=== PATIENT | female | born 1965 | race Caucasian/White ===

== ENCOUNTER → 2020-05-17 13:52 | Outpatient (BNVA) | payer OTHER, SELFPAY | PROVIDERS: PCP Internal Medicine; Referring Provider Internal Medicine; Visit Provider Hospitalist | DX: Z76.89 Persons encountering health services in other specified circumstances (principal) ==

== ENCOUNTER 2020-08-22 09:09 | Outpatient (REF) | payer OTHER, SELFPAY ==
[2020-08-22 09:42] LABS: MANUAL DIFF FLAG NO
[2020-08-22 09:47] LABS: Basophils Absolute Auto 0.1 X10*3/uL (0.0-0.2); Eosinophils Absolute Auto 0.2 X10*3/uL (0.0-0.4); Eosinophils Percent Auto 3.2 % (0-4); Hemoglobin 12.8 g/dl (12.0-16.0); Imm Gran Abs Auto 0.03 X10*3/uL (0.00-0.03); Imm Gran Pct Auto 0.5 % (0.0-0.4); Lymphocytes Absolute Auto 2.2 X10*3/uL (1.2-4.9); Lymphocytes Percent Auto 35.7 % (20-40); Mean Corpuscular HGB Conc 31.2 g/dl (31.0-35.0); Mean Corpuscular Hemoglobin 29.3 pg (27.0-33.0); Mean Corpuscular Volume 93.8 fL (80-98); Mean Platelet Volume 11.5 fL (9.4-12.3); Monocytes Absolute Auto 0.4 X10*3/uL (0.1-1.2); Monocytes Percent Auto 6.3 % (2-11); Neutrophils Absolute Auto 3.3 X10*3/uL (2.0-8.3); Neutrophils Percent Auto 53.3 % (45-73); Platelet Count 272 X10*3/uL (160-400); Red Blood Count 4.37 X10*6/uL (4.20-5.50); Red Cell Distribution Width 13.2 % (11.0-16.0); White Blood Count 6.2 X10*3/uL (4.8-10.8)
[2020-08-22 10:08] LABS: Alanine Aminotransferase 16 U/L (0-31); Albumin Level 4.1 g/dL (3.5-5.0); Alkaline Phosphatase 103 U/L (39-117); Anion Gap 10 (12-20); Aspartate Amino Transferase 21 U/L (5-31); Bilirubin Total 0.4 mg/dL (0.0-1.0); Blood Urea Nitrogen 10 mg/dL (9-16); Calcium 9.5 mg/dL (8.4-10.2); Carbon Dioxide 29 mmol/L (22-29); Chloride 107 mmol/L (96-108); Cholesterol 229 mg/dL; Estimated Glomerular Filt Rate > 60; Glucose Fasting 103 mg/dL (60-99); HDL Cholesterol 52 mg/dL; LDL Cholesterol Calculated 156 mg/dl; Potassium 4.4 mmol/L (3.3-5.1); Sodium 142 mmol/L (135-145); Total Protein 6.5 g/dL (6.5-8.0); Triglycerides 107 mg/dL
== END 2020-08-22 09:10 | disposition home or self-care (01) ==
LOC: HO.LAB 09:09
PROVIDERS: PCP Internal Medicine; Visit Provider Internal Medicine
DX: E78.00 Pure hypercholesterolemia, unspecified (principal); E55.9 Vitamin D deficiency, unspecified; G43.909 Migraine, unspecified, not intractable, without status migrainosus; F32.9 Major depressive disorder, single episode, unspecified
CPT/HCPCS: 36415; 80053; 80061; 82306; 84443; 85025

== ENCOUNTER → 2020-10-12 13:50 | Outpatient (BNVA) | payer OTHER, SELFPAY | PROVIDERS: PCP Internal Medicine; Visit Provider Hospitalist ==

== ENCOUNTER → 2020-12-18 08:13 | Outpatient (BNV) | payer OTHER, SELFPAY | PROVIDERS: PCP Internal Medicine; Visit Provider Internal Medicine Medical Oncology | DX: R91.1 Solitary pulmonary nodule (principal); Z15.01 Genetic susceptibility to malignant neoplasm of breast | CPT/HCPCS: 99213; 99214 ==

== ENCOUNTER 2020-12-18 09:54 | Outpatient (REF) | payer OTHER, SELFPAY ==
--- NOTE | ~2020-12-18 | CT_ITS ---
EXAMINATION: CT CHEST WITHOUT CONTRAST CLINICAL INFORMATION: Follow-up pulmonary nodule COMPARISON: Previous chest CT scans most recent December 2019 TECHNIQUE: Multidetector volumetric CT imaging of the chest was done. Axial MIP volume rendering provided. Sagittal and coronal reformatted images were obtained. This CT examination was performed using dose optimization techniques as appropriate, variously including the following: *Automated exposure control *Adjustment of mA and/or kV according to patient size (this includes techniques or standardized protocols for targeted exams where dose is matched to indication/reason for exam; i.e. extremities or head) *Use of iterative reconstruction technique DLP: 114 mGy-cm FINDINGS: LUNGS: There is biapical pleural parenchymal scarring that is stable. There is a 3 mm calcified left upper lobe nodule axial image 200 series 7 that is stable. The 6 mm left lower lobe nodule is stable axial image 481 series 7. This is somewhat triangular in shape and may represent an intrapulmonary lymph node. There is linear scarring or subsegmental atelectasis at the left lung base in the left lower lobe and in the anterior segment of the right upper lobe adjacent to the minor fissure and in the medial segment of the right middle lobe that is stable. The lungs are otherwise clear. MEDIASTINUM: The mediastinum is normal. PLEURA: There is no pleural effusion. No pleural mass or thickening. AXILLA: Both breasts have been removed. No chest wall mass is seen. There are no enlarged axillary lymph nodes. UPPER ABDOMEN: There is a small peripheral 1 cm low-attenuation lesion in the left lobe of the liver that is stable and probably represents a cyst.. OSSEOUS STRUCTURES: There is a thoracolumbar scoliosis and degenerative changes of the spine. Bony structures are otherwise unremarkable. CT/CT chest wo con IMPRESSION: Stable pulmonary nodules. Stable biapical pleural parenchymal scarring scarring or chronic subsegmental atelectasis in the right upper right middle and left lower lobes.
== END 2020-12-18 09:55 | disposition home or self-care (01) ==
LOC: HO.CT 09:54
PROVIDERS: Visit Provider Hospitalist
DX: R91.1 Solitary pulmonary nodule (principal); Z15.01 Genetic susceptibility to malignant neoplasm of breast; E78.00 Pure hypercholesterolemia, unspecified
CPT/HCPCS: 71250

== ENCOUNTER → 2021-02-20 10:11 | Outpatient (BNVA) | payer OTHER, SELFPAY | PROVIDERS: PCP Internal Medicine; Visit Provider Hospitalist ==

== ENCOUNTER 2021-05-27 09:23 | Outpatient (REF) | payer OTHER, SELFPAY ==
[2021-05-27 10:30] LABS: Alanine Aminotransferase 18 U/L (0-31); Alkaline Phosphatase 123 U/L (39-117); Anion Gap 11 (12-20); Aspartate Amino Transferase 23 U/L (5-31); Bilirubin Total 0.6 mg/dL (0.0-1.0); Blood Urea Nitrogen 7 mg/dL (9-16); Calcium 9.6 mg/dL (8.4-10.2); Carbon Dioxide 29 mmol/L (22-29); Chloride 105 mmol/L (96-108); Cholesterol 167 mg/dL; Estimated Glomerular Filt Rate > 60; Glucose Fasting 102 mg/dL (60-99); HDL Cholesterol 40 mg/dL; LDL Cholesterol Calculated 111 mg/dl; Potassium 3.9 mmol/L (3.3-5.1); Sodium 141 mmol/L (135-145); Total Protein 6.5 g/dL (6.5-8.0); Triglycerides 80 mg/dL
[2021-05-27 10:51] LABS: Thyroid Stimulating Hormone 0.61 uIU/mL (0.32-4.0); Vitamin D 25-OH Total 14.9 ng/mL (>30)
[2021-05-29 21:17] LABS: TS Negative Control Passed; TS Panel A 0; TS Panel B 0; TS Positive Control Passed; TSpotTB Negative (Negative)
== END 2021-05-27 09:24 | disposition home or self-care (01) ==
LOC: HO.LAB 09:23
PROVIDERS: PCP Internal Medicine; Visit Provider Internal Medicine
DX: E78.00 Pure hypercholesterolemia, unspecified (principal); E55.9 Vitamin D deficiency, unspecified; G43.009 Migraine without aura, not intractable, without status migrainosus; F32.9 Major depressive disorder, single episode, unspecified
CPT/HCPCS: 36415; 80053; 80061; 82306; 84443; 86481

== ENCOUNTER 2021-09-10 08:49 | Outpatient (REF) | payer OTHER, SELFPAY ==
[2021-09-10 09:05] LABS: MANUAL DIFF FLAG NO
[2021-09-10 09:09] LABS: Basophils Absolute Auto 0.1 X10*3/uL (0.0-0.2); Basophils Percent Auto 0.6 % (0-2); Eosinophils Absolute Auto 0.2 X10*3/uL (0.0-0.4); Eosinophils Percent Auto 2.4 % (0-4); Hematocrit 40.6 % (37.0-47.0); Hemoglobin 12.9 g/dl (12.0-16.0); Imm Gran Abs Auto 0.02 X10*3/uL (0.00-0.03); Imm Gran Pct Auto 0.3 % (0.0-0.4); Lymphocytes Absolute Auto 1.9 X10*3/uL (1.2-4.9); Lymphocytes Percent Auto 24.9 % (20-40); Mean Corpuscular HGB Conc 31.8 g/dl (31.0-35.0); Mean Corpuscular Hemoglobin 29.5 pg (27.0-33.0); Mean Corpuscular Volume 92.7 fL (80.0-98.0); Mean Platelet Volume 11.7 fL (9.4-12.3); Monocytes Absolute Auto 0.5 X10*3/uL (0.1-1.2); Monocytes Percent Auto 5.8 % (2-11); Neutrophils Absolute Auto 5.1 x10*3/uL (2.0-8.3); Platelet Count 249 X10*3/uL (160-400); Red Blood Count 4.38 X10*6/uL (4.20-5.50); White Blood Count 7.8 X10*3/uL (4.8-10.8)
[2021-09-10 09:49] LABS: Alanine Aminotransferase 25 U/L (0-31); Albumin Level 4.2 g/dL (3.5-5.0); Alkaline Phosphatase 112 U/L (39-117); Anion Gap 12 (12-20); Aspartate Amino Transferase 24 U/L (5-31); Bilirubin Total 0.3 mg/dL (0.0-1.0); Blood Urea Nitrogen 6 mg/dL (9-16); Calcium 9.7 mg/dL (8.4-10.2); Carbon Dioxide 28 mmol/L (22-29); Chloride 106 mmol/L (96-108); Estimated Glomerular Filt Rate > 60; Glucose Random 86 mg/dL (60-115); Potassium 4.5 mmol/L (3.3-5.1); Sodium 141 mmol/L (135-145); Total Protein 6.5 g/dL (6.5-8.0)
[2021-09-10 09:54] LABS: Thyroid Stimulating Hormone 0.89 uIU/mL (0.32-4.0)
== END 2021-09-10 08:50 | disposition home or self-care (01) ==
LOC: HO.LAB 08:49
PROVIDERS: PCP Internal Medicine; Visit Provider Internal Medicine
DX: K29.70 Gastritis, unspecified, without bleeding (principal)
CPT/HCPCS: 36415; 80053; 84443; 85025

== ENCOUNTER 2021-09-12 11:03 | Outpatient (REF) | payer OTHER, SELFPAY ==
--- NOTE | ~2021-09-12 | FL_ITS ---
PROCEDURE: XR FLUOROSCOPY UPPER GI WITH AIR CLINICAL INFORMATION: Gastritis without bleeding. COMPARISON: None TECHNIQUE: Routine upper GI air-contrast study was performed in upright and lying position. FINDINGS: Following oral administration of thick barium and effervescent granules there is normal propagation of bolus from the oral cavity through the pharynx, esophagus into stomach without any evidence of obstruction, narrowing or stricture. On placing patient supine and prone lying the course, caliber and the peristalsis of the stomach and the duodenal bulb is normal. There is a large gastroesophageal reflux without hiatal hernia. The mucosal pattern of the stomach and the duodenum is normal. FLUOROSCOPY TIME: 1.5 minutes. DOSE AREA PRODUCT: 8.908 uGy-m2 (microgray-meter squared). FL/FL upper GI w air IMPRESSION: Large gastroesophageal reflux without hiatal hernia. Rest of the upper GI exam is unremarkable.
== END 2021-09-12 11:04 | disposition home or self-care (01) ==
LOC: HO.XRAY 11:03
PROVIDERS: Visit Provider Internal Medicine
DX: K29.70 Gastritis, unspecified, without bleeding (principal)
CPT/HCPCS: 74246

== ENCOUNTER 2021-10-03 08:14 | Emergency (ER) | payer OTHER, SELFPAY ==
--- NOTE | ~2021-10-03 | CT_ITS ---
EXAMINATION: CT ABDOMEN AND PELVIS WITH CONTRAST CLINICAL INFORMATION: Left lower quadrant abdominal pain COMPARISON: CT abdomen and pelvis from 10/20/2013, CT chest from 12/18/2020 TECHNIQUE: Multidetector volumetric images were obtained from the superior aspect of the liver through the pubic symphysis following administration 85 mL of Omnipaque 350 intravenous contrast. Sagittal and coronal reformatted images were obtained on the technologist's workstation. Oral contrast: No This CT examination was performed using dose optimization techniques as appropriate, variously including the following: *Automated exposure control *Adjustment of mA and/or kV according to patient size (this includes techniques or standardized protocols for targeted exams where dose is matched to indication/reason for exam; i.e. extremities or head) *Use of iterative reconstruction technique DLP: 340 mGy-cm FINDINGS: LUNG BASES: Patchy opacity involving the lateral aspect of the left lower lobe (series 3, image [id number]), new from prior imaging nonspecific and may reflect infectious/inflammatory etiology. A nodular component is noted at the lateral margin of this opacity measuring 7 mm (series 3, image 50). Heart is not enlarged. No pericardial effusion. LIVER, GALLBLADDER, AND BILIARY TREE: The liver is normal in size, shape, and attenuation. Hypodense focus in the anterior aspect of the left hepatic lobe demonstrating fluid attenuation, statistically representing a cyst measuring 1.2 cm. Gallbladder is unremarkable. PANCREAS: Unremarkable. SPLEEN: Unremarkable. ADRENAL GLANDS: Unremarkable. KIDNEYS AND URETERS: The kidneys are normal in size, shape, and attenuation. No hydronephrosis, hydroureter, or calculi seen. No perinephric stranding. BLADDER: Suggestion of mild wall thickening of the urinary bladder which is nonspecific in an underdistended state. GASTROINTESTINAL TRACT: Mild colonic diverticulosis. Mild thickening of the descending and distal transverse colon which may be secondary to underdistention versus resolving infectious/inflammatory etiology. The small and large bowel are unremarkable. The appendix is unremarkable. ABDOMINAL WALL: Fat filled left inguinal hernia with slight mesenteric haziness. LYMPH NODES: No enlarged lymph nodes per size criteria. VASCULAR: Abdominal aorta is nonaneurysmal. Atherosclerotic calcifications of the abdominal aorta and its branches. PELVIC VISCERA: Retroverted uterus. OSSEOUS STRUCTURES: Levocurvature of the lumbar spine. Multilevel degenerative changes of the thoracolumbar and lumbosacral spine. No large lytic or blastic lesions are noted. Sclerotic focus in the lateral aspect of the right sacrum statistically representing bone islands. CT/CT abdomen pelvis w con IMPRESSION: 1. Patchy opacity involving the lateral aspect of the left lower lobe (series 3, image [id number]), new from prior imaging nonspecific and may reflect infectious/inflammatory etiology. A nodular component is noted at the lateral margin of this opacity measuring 7 mm (series 3, image 50). Follow-up as per Fleischner criteria. 2. Fat filled left inguinal hernia with slight mesenteric haziness. Correlation with symptomatology. 3. Mild colonic diverticulosis. Mild thickening of the descending and distal transverse colon which may be secondary to underdistention versus resolving infectious/inflammatory etiology. 4. Hypodense focus in the anterior aspect of the left hepatic lobe demonstrating fluid attenuation, statistically representing a cyst measuring 1.2 cm. 5. Suggestion of mild wall thickening of the urinary bladder which is nonspecific in an underdistended state. Various management parameters for solitary pulmonary nodules are in the literature. According to the Fleischner Society, recommendations for pulmonary nodules are as follows: According to the UPDATED 2017 Fleischner Society recommendations, the advised follow-up imaging for a single 6-8 mm solid nodule is: LOW RISK PATIENT: CT at 6-12 months, then consider CT at 18-24 months. HIGH RISK PATIENT: CT at 6-12 months, then at 18-24 months.
[2021-10-03 08:20] VITALS: BP 145/85; PULSE 76; RESP 18; TEMP 36.2; O2SAT 100; BMI 20.3
[2021-10-03 08:36] LABS: MANUAL DIFF FLAG NO
--- NOTE | 2021-10-03 08:36 | ED_ITS ---
HPI - General Adult General Chief complaint: General Medical Stated complaint: lump in groin area Time Seen by Provider: 10/03/21 08:36 Source: patient Mode of arrival: ambulatory Limitations: no limitations History of Present Illness HPI narrative: Patient is a 56 year old female presenting to the emergency department today with left groin pain. Patient states that starting last night after a forceful cough, she has felt pain in her left groin/left lower abdomen. Patient states that she feels a small oval in the area that hurts. Patient denies any dizziness, lightheadedness, nausea, vomiting, fever, chills, blurry vision, double vision, loss of vision, chest pain, difficulty breathing, shortness of breath, back pain, night sweats, pain with urination, increased urinary frequency, increased urinary urgency, blood in her urine or stool, syncope or a near syncopal episode, recent trauma or falls, bowel incontinence, bladder incontinence, bowel retention, bladder retention, or any other complaints at this time. Onset (ago): day(s) Location: abdomen Radiation: non-radiation Severity: mild Severity scale (1-10): 3 Quality: dull Pain Consistency: constant Relieving factors: none Exacerbating factors: none Associated symptoms: denies other symptoms Treatments prior to arrival: none Related Data Home Medications Medication Instructions Recorded Confirmed albuterol sulfate 2.5 mg INHALATION DAILY 05/17/20 12/18/20 abwbxrwcpm-koqokdotjtiwx-cusanzam 1 tab PO DAILY PRN 05/17/20 12/18/20 50 mg-325 mg-40 mg tablet cholecalciferol (vitamin D3) 50 50 mcg PO DAILY 05/17/20 12/18/20 mcg (2,000 unit) tablet cyanocobalamin (vitamin B-12) 1,000 mcg PO DAILY 05/17/20 12/18/20 1,000 mcg tablet duloxetine 60 mg capsule,delayed 60 mg PO DAILY 05/17/20 12/18/20 release multivitamin 1 tab PO DAILY 05/17/20 12/18/20 nystatin 100,000 unit/mL oral 100,000 unit PO DAILY 05/17/20 12/18/20 suspension pantoprazole 40 mg tablet,delayed 40 mg PO DAILY 05/17/20 12/18/20 release propranolol 160 mg capsule,24 160 mg PO DAILY 05/17/20 12/18/20 hr,extended release sumatriptan succinate 50 mg tablet 50 mg PO BID PRN 05/17/20 12/18/20 atorvastatin 40 mg tablet 40 mg PO DAILY 10/12/20 12/18/20 erenumab-aooe 70 mg/mL 70 mg SUBCUT QMONTH 10/12/20 12/18/20 subcutaneous auto-injector Previous Rx's Medication Instructions Recorded albuterol sulfate 90 mcg/actuation 2 inh INHALATION Q6H PRN 30 Days 05/17/20 aerosol inhaler #18 g Allergies Allergy/AdvReac Type Severity Reaction Status Date / Time bee pollen [BEE STINGS] Allergy Severe ANAPHYLAXIS Verified 10/03/21 08:25 meperidine [From DEMEROL] Allergy Mild VOMITING Verified 10/03/21 08:25 oxycodone [OXYCODONE] Allergy Mild VOMITING Verified 10/03/21 08:25 Review of Systems Constitutional: Constitutional: Reports no additional constitutional complaints, Denies chills, Denies fever(s) and Denies night sweats Eyes: Eyes: Reports no additional eye complaints, Denies blurry vision, Denies change in vision, Denies diplopia, Denies eye discharge, Denies loss of vision and Denies eye pain ENT: Denies dizziness Cardiovascular: Cardiovascular: Reports no additional cardiovascular complaints, Denies chest pain, Denies lightheadedness, Denies Loss of Con sciousness and Denies dyspnea Respiratory: Respiratory: Reports no additional respiratory complaints and Denies dyspnea Gastrointestinal: Gastrointestinal: Reports no additional gastrointestinal complaints, Reports abdominal pain, Denies melena, Denies hematochezia, Denies change in bowel habits and Denies change in stool character Genitourinary: Genitourinary: Denies hematuria, Denies urinary frequency, Denies dysuria, Denies urinary incontinence, Denies urinary hesitancy and Denies urinary urgency Musculoskeletal: Musculoskeletal: Reports no additional musculoskeletal complaints, Denies numbness and Denies tingling Neurologic: Denies dizziness, Denies loss of vision, Denies numbness and Denies tingling Psychiatric: Psychiatric: Reports no additional psychiatric complaints Endocrine: Endocrine: Reports no additional endocrine complaints Hematologic/Lymphatic: Hematologic/Lymphatic: Reports no additional hematologic/lymphatic complaints Allergic/Immunologic: Allergic/Immunologic: Reports no additional allergic/immunologic complaints PMFSH Past Medical History Attestation statement: The following information was validated with the patient. Source: old records reviewed Medical History Asthma GERD (gastroesophageal reflux disease) History of 2019 novel coronavirus disease (COVID-19) Pulmonary nodule Surgical History History of mastectomy Family History Family History Sister Breast cancer Family/Other Lung cancer Breast cancer Family/Other Breast cancer Family/Other Breast cancer Paternal Aunt Breast cancer Ovarian cancer Mother Stroke Heart disease Asthma Emphysema lung COPD (chronic obstructive pulmonary disease) Diabetes Dementia Father Heart disease Social History Social History Alcohol intake: former Patient Tobacco Use Status: Former Tobacco user Quit Date: 2016 Advance Directives: No Advance Directives Information Provided: Yes Patient : No Physical Exam ED Vital Signs: Vital Signs - 24 hr 10/03/21 08:20 10/03/21 10:01 Temperature 97.2 F 98.4 F Pulse Rate 76 59 Respiratory Rate 18 16 Blood Pressure 145/85 H 138/62 Pulse Oximetry 100 99 BMI result Body Mass Index 20.3 Const General: cooperative, no acute distress, alert and awake Nutritional Appearance: well nourished Orientation/consciousness: patient oriented x3 Limitations: no limitations HENMT Head: Yes normal to inspection and Yes atraumatic Ears: hearing grossly normal bilaterally and external ears normal General nose exam: Normal external nose present, no nasal discharge noted and no epistaxis Face and sinus: Yes normal facial exam, No abrasion and No laceration Mouth: Normal oral and palatal mucosa present, no drooling and no muffled voice Eyes General: appearance normal, both eyes and all related structures Periorbital: periorbital findings normal Eyelids: Yes eyelids normal Conjunctivae: conjunctivae normal Pupils: Equal, round and reactive pupils present EOM: EOMs intact bilaterally Neck Neck: Yes normal visual inspection, Yes full ROM and Yes no lymphadenopathy Chest Chest palpation & inspection: normal inspection of the chest Resp Effort & Inspection: normal respiratory effort and able to speak in complete sen tences Auscultation: clear to auscultation bilaterally Cardio Rate: regular rate Rhythm: regular rhythm GI Inspection: Yes normal to inspection Palpation (GI): Soft to palpation, not firm, nontender, no guarding, not rigid and Other GI palpation findings present (left lower abdominal wall hernia felt, easily reducable ) Auscultation: normal bowel sounds Neuro General: patient oriented x3 and moves all extremities Cranial nerves: Yes Equal, round and reactive pupils present Cognition (Neuro): normal cognition Motor exam (neuro): 5/5 motor strength present throughout Sensory Exam: Normal double simultaneous stimulation for sensation Coordination: gdavyp-ag-xmsp test normal Extrem General: Yes normal to inspection, Yes full ROM and Yes capillary refill normal Psych Appearance: grossly normal Mental Status: mental status grossly normal Affect: normal affect Attitude: cooperative Thought process: Normal thought process present Thought content: Normal thought content present Insight: Good insight present (Psych) Medical Decision Making MDM Narrative Medical decision making narrative: Patient is a 56 year old female presenting to the emergency department today with left lower abdominal/groin pain. Patient's physical exam showed a small, easily reducible, left inguinal hernia. Patient's blood work was unremarkable. Patient's abdominal CT confirmed a fat containing left inguinal hernia. I explained my physical exam findings as well as all test results to the patient. I answered all questions asked by the patient. I stressed the importance of the patient taking her medication as prescribed. I stressed the importance of the patient following up with her primary care provider and a general surgeon. I stressed the importance of the patient returning to the emergency department immediately if her symptoms were to worsen or if she were to develop any dizziness, shortness of breath, difficulty breathing, chest pain, blurry vision, loss of vision, nausea, vomiting, abdominal pain, fever, chills, back pain, or any other complaints. Patient verbalized agreement and understanding with this treatment plan and discharge. Differential Diagnosis Differential Diagnosis: diverticulitis, inguinal hernia Medical Records Medical records reviewed: Yes I reviewed the patient's medical records. Lab Data Lab results reviewed: Yes I reviewed the patient's lab results. Result diagrams: 10/03/21 08:33 10/03/21 08:33 Labs: Lab Results 10/03/21 10/03/21 10/03/21 Range/Units 08:33 08:33 08:46 WBC 5.1 (4.8-10.8) X10*3/uL RBC 4.31 (4.20-5.50) X10*6/uL Hgb 12.7 (12.0-16.0) g/dl Hct 39.4 (37.0-47.0) % MCV 91.4 (80.0-98.0) fL MCH 29.5 (27.0-33.0) pg MCHC 32.2 (31.0-35.0) g/dl RDW 12.8 (11.0-16.0) % Plt Count 279 (160-400) X10*3/uL MPV 11.0 (9.4-12.3) fL Immature Gran % (Auto) 0.2 (0.0-0.4) % Neut % (Auto) 54.1 (45-73) % Lymph % (Auto) 30.2 (20-40) % [place] % (Auto) 9.4 (2-11) % Eos % (Auto) 5.1 H (0-4) % Baso % (Auto) 1.0 (0-2) % Lymph # (Auto) 1.5 (1.2-4.9) X10*3/uL [place] # (Auto) 0.5 (0.1-1.2) X10*3/uL Eos # (Auto) 0.3 (0.0-0.4) X10*3/uL Baso # (Auto) 0.1 (0.0-0.2) X10*3/uL Abs Immat Gran (auto) 0.01 (0.00-0.03) X10*3/uL Absolute Neuts (auto) 2.8 (2.0-8.3) x10*3/uL Absolute Nucleated RBC 0.000 (0.0-0.012) X10*3/uL Nucleated RBC % (auto) 0.0 (0.0-0.2) /100WBC Sodium 141 (135-145) mmol/L Potassium 4.5 (3.3-5.1) mmol/L Chloride 107 (96-108) mmol/L Carbon Dioxide 29 (22-29) mmol/L Anion Gap 10 L (12-20) BUN 7 L (9-16) mg/dL Creatinine 0.83 (0.5-1.4) mg/dL Estim Creat Clear Calc 61.5 Estimated GFR > 60 Random Glucose 108 (60-115) mg/dL Calcium 9.7 (8.4-10.2) mg/dL Magnesium 1.8 (1.6-2.6) mg/dL Lipase 39 (8-78) U/L Urine Color Urine Appearance Urine pH (5.0-8.0) Ur Specific [place] (1.005-1.025) Urine Protein (NEG-TRACE) MG/DL Urine Glucose (UA) (NEG) MG/DL Urine Ketones (NEG) MG/DL Urine Blood (NEG) Urine Nitrite (NEG) Ur Leukocyte Esterase (NEG) 10/03/21 Range/Units 09:13 WBC (4.8-10.8) X10*3/uL RBC (4.20-5.50) X10*6/uL Hgb (12.0-16.0) g/dl Hct (37.0-47.0) % MCV (80.0-98.0) fL MCH (27.0-33.0) pg MCHC (31.0-35.0) g/dl RDW (11.0-16.0) % Plt Count (160-400) X10*3/uL MPV (9.4-12.3) fL Immature Gran % (Auto) (0.0-0.4) % Neut % (Auto) (45-73) % Lymph % (Auto) (20-40) % [place] % (Auto) (2-11) % Eos % (Auto) (0-4) % Baso % (Auto) (0-2) % Lymph # (Auto) (1.2-4.9) X10*3/uL [place] # (Auto) (0.1-1.2) X10*3/uL Eos # (Auto) (0.0-0.4) X10*3/uL Baso # (Auto) (0.0-0.2) X10*3/uL Abs Immat Gran (auto) (0.00-0.03) X10*3/uL Absolute Neuts (auto) (2.0-8.3) x10*3/uL Absolute Nucleated RBC (0.0-0.012) X10*3/uL Nucleated RBC % (auto) (0.0-0.2) /100WBC Sodium (135-145) mmol/L Potassium (3.3-5.1) mmol/L Chloride (96-108) mmol/L Carbon Dioxide (22-29) mmol/L Anion Gap (12-20) BUN (9-16) mg/dL Creatinine (0.5-1.4) mg/dL Estim Creat Clear Calc Estimated GFR Random Glucose (60-115) mg/dL Calcium (8.4-10.2) mg/dL Magnesium (1.6-2.6) mg/dL Lipase (8-78) U/L Urine Color YELLOW Urine Appearance CLEAR Urine pH 6.0 (5.0-8.0) Ur Specific [place] 1.015 (1.005-1.025) Urine Protein NEG (NEG-TRACE) MG/DL Urine Glucose (UA) NEG (NEG) MG/DL Urine Ketones NEG (NEG) MG/DL Urine Blood NEG (NEG) Urine Nitrite NEG (NEG) Ur Leukocyte Esterase NEG (NEG) Imaging Data CT scan - abdomen: Attestation: I personally reviewed and interpreted this imaging study as follows: My impression: left inguinal hernia Radiologist's impression: EXAMINATION: CT ABDOMEN AND PELVIS WITH CONTRAST? CLINICAL INFORMATION: Left lower quadrant abdominal pain? COMPARISON: CT abdomen and pelvis from 10/20/2013, CT chest from 12/18/2020 TECHNIQUE: Multidetector volumetric images were obtained from the superior aspect of the liver through the pubic symphysis following administration 85 mL of Omnipaque 350 intravenous contrast. Sagittal and coronal reformatted images were obtained on the technologist's workstation.? Oral contrast: No This CT examination was performed using dose optimization techniques as appropriate, variously including the following: *Automated exposure control *Adjustment of mA and/or kV according to patient size (this includes techniques or standardized protocols for targeted exams where dose is matched to indication/reason for exam; i.e. extremities or head) *Use of iterative reconstruction technique DLP: 340 mGy-cm FINDINGS: LUNG BASES: Patchy opacity involving the lateral aspect of the left lower lobe (series 3, image 18-98), new from prior imaging nonspecific and may reflect infectious/inflammatory etiology. A nodular component is noted at the lateral margin of this opacity measuring 7 mm (series 3, image 50). Heart is not enlarged. No pericardial effusion. LIVER, GALLBLADDER, AND BILIARY TREE: The liver is normal in size, shape, and attenuation. Hypodense focus in the anterior aspect of the left hepatic lobe demonstrating fluid attenuation, statistically representing a cyst measuring 1.2 cm. Gallbladder is unremarkable. PANCREAS: Unremarkable.? SPLEEN: Unremarkable.? ADRENAL GLANDS: Unremarkable.? KIDNEYS AND URETERS: The kidneys are normal in size, shape, and attenuation. No hydronephrosis, hydroureter, or calculi seen. No perinephric stranding. ? BLADDER: Suggestion of mild wall thickening of the urinary bladder which is nonspecific in an underdistended state.? GASTROINTESTINAL TRACT: Mild colonic diverticulosis. Mild thickening of the descending and distal transverse colon which may be secondary to underdistention versus resolving infectious/inflammatory etiology. The small and large bowel are unremarkable. The appendix is unremarkable.? ABDOMINAL WALL: Fat filled left inguinal hernia with slight mesenteric haziness.? LYMPH NODES: No enlarged lymph nodes per size criteria. VASCULAR: Abdominal aorta is nonaneurysmal. Atherosclerotic calcifications of the abdominal aorta and its branches. PELVIC VISCERA: Retroverted uterus.? OSSEOUS STRUCTURES: Levocurvature of the lumbar spine. Multilevel degenerative changes of the thoracolumbar and lumbosacral spine. No large lytic or blastic lesions are noted. Sclerotic focus in the lateral aspect of the right sacrum statistically representing bone islands.? CT/CT abdomen pelvis w con IMPRESSION: 1.? Patchy opacity involving the lateral aspect of the left lower lobe (series 3, image [id number]), new from prior imaging nonspecific and may reflect infectious/inflammatory etiology. A nodular component is noted at the lateral margin of this opacity measuring 7 mm (series 3, image 50). Follow-up as per Fleischner criteria. 2.? Fat filled left inguinal hernia with slight mesenteric haziness. Correlation with symptomatology. 3.? Mild colonic diverticulosis. Mild thickening of the descending and distal transverse colon which may be secondary to underdistention versus resolving infectious/inflammatory etiology. 4.? Hypodense focus in the anterior aspect of the left hepatic lobe demonstrating fluid attenuation, statistically representing a cyst measuring 1.2 cm. 5.? Suggestion of mild wall thickening of the urinary bladder which is nonspecific in an underdistended state.? ? Various management parameters for solitary pulmonary nodules are in the literature. According to the Fleischner Society, recommendations for pulmonary nodules are as follows:? ? According to the UPDATED 2017 Fleischner Society recommendations, the advised follow-up imaging for a single 6-8 mm solid nodule is: ?? LOW RISK PATIENT: CT at 6-12 months, then consider CT at 18-24 months. ?? HIGH RISK PATIENT: CT at 6-12 months, then at 18-24 months. Dictated By: Rona Kimball MD Signed By: Electronically signed by Rona Kimball MD 10/03/21 1476 Discharge Plan Discharge Clinical Impression: Inguinal hernia Patient Disposition: Home, Self-Care Instructions: Inguinal Hernia (ED) Additional Instructions: Follow up with your primary care provider. Return to the emergency department immediately if your symptoms worsen or if you develop any dizziness, shortness of breath, difficulty breathing, chest pain, blurry vision, loss of vision, nausea, vomiting, abdominal pain, fever, chills, back pain, or any other complaints. Prescriptions: No Action propranolol 160 mg capsule,extended release 24 hr 160 mg PO DAILY 0RF sumatriptan succinate 50 mg tablet 50 mg PO BID PRN (Reason: Migraine Headache) 0RF cyanocobalamin (vitamin B-12) 1,000 mcg tablet 1,000 mcg PO DAILY 0RF jpvwpilwbj-ivgvpwxageubz-akop 50-325-40 mg tablet 1 tab PO DAILY PRN (Reason: Migraine Headache) 0RF cholecalciferol (vitamin D3) 50 mcg (2,000 unit) tablet 50 mcg PO DAILY 0RF duloxetine 60 mg capsule,delayed release(DR/EC) 60 mg PO DAILY 0RF multivitamin Tablet 1 tab PO DAILY 0RF pantoprazole 40 mg tablet,delayed release (DR/EC) 40 mg PO DAILY 0RF nystatin 100,000 unit/mL suspension 100,000 unit PO DAILY 0RF albuterol sulfate 2.5 mg /3 mL (0.083 %) solution for nebulization 2.5 mg inhalation DAILY 0RF albuterol sulfate 90 mcg/actuation HFA aerosol inhaler 2 inh inhalation Q6H PRN (Reason: shortness of breath or wheezing) 30 Days Qty: 18 12RF erenumab-aooe 70 mg/mL auto-injector 70 mg subcut QMONTH 0RF atorvastatin 40 mg tablet 40 mg PO DAILY 0RF Referrals: Yimi Norris MD, DO [Primary Care Provider] - Gilmer Levy MD [Physician] - Interventions: ED Discharge Assessment Last Done: 10/03/21 11:03 Discharge Date/Time: 10/03/21 11:04 Print Language: [place] Citizen
[2021-10-03 08:41] LABS: Basophils Absolute Auto 0.1 X10*3/uL (0.0-0.2); Eosinophils Absolute Auto 0.3 X10*3/uL (0.0-0.4); Eosinophils Percent Auto 5.1 % (0-4); Hematocrit 39.4 % (37.0-47.0); Hemoglobin 12.7 g/dl (12.0-16.0); Imm Gran Abs Auto 0.01 X10*3/uL (0.00-0.03); Imm Gran Pct Auto 0.2 % (0.0-0.4); Lymphocytes Absolute Auto 1.5 X10*3/uL (1.2-4.9); Lymphocytes Percent Auto 30.2 % (20-40); Mean Corpuscular HGB Conc 32.2 g/dl (31.0-35.0); Mean Corpuscular Hemoglobin 29.5 pg (27.0-33.0); Mean Corpuscular Volume 91.4 fL (80.0-98.0); Monocytes Absolute Auto 0.5 X10*3/uL (0.1-1.2); Monocytes Percent Auto 9.4 % (2-11); Neutrophils Absolute Auto 2.8 x10*3/uL (2.0-8.3); Neutrophils Percent Auto 54.1 % (45-73); Platelet Count 279 X10*3/uL (160-400); Red Blood Count 4.31 X10*6/uL (4.20-5.50); Red Cell Distribution Width 12.8 % (11.0-16.0); White Blood Count 5.1 X10*3/uL (4.8-10.8)
[2021-10-03 08:55] LABS: Anion Gap 10 (12-20); Blood Urea Nitrogen 7 mg/dL (9-16); Calcium 9.7 mg/dL (8.4-10.2); Carbon Dioxide 29 mmol/L (22-29); Chloride 107 mmol/L (96-108); Creatinine Clr Calc Pharmacy 61.5; Estimated Glomerular Filt Rate > 60; Glucose Random 108 mg/dL (60-115); Lipase 39 U/L (8-78); Potassium 4.5 mmol/L (3.3-5.1); Sodium 141 mmol/L (135-145)
[2021-10-03] MEDS: iohexoL 350 MG/ML 100 ML INFUS..BTL 85 ML IV (08:59)
[2021-10-03 09:09] LABS: Magnesium 1.8 mg/dL (1.6-2.6)
[2021-10-03 09:32] LABS: Appearance Urine CLEAR; Color Urine YELLOW; Glucose Urine UA NEG (NEG); Leukocyte Esterase Urine NEG (NEG); Nitrite Urine NEG (NEG); Specific Gravity - Urine 1.015 (1.005-1.025); Urine Blood NEG (NEG); Urine Ketones NEG (NEG); Urine Protein NEG (NEG-TRACE)
[2021-10-03 10:01] VITALS: BP 138/62; PULSE 59; RESP 16; TEMP 36.9; O2SAT 99
== END 2021-10-03 11:04 | disposition home or self-care (01) ==
PROVIDERS: Physician Assistant Medical; Emergency Provider Student in an Organized Health Care Education/Training Program; PCP Internal Medicine
DX: K40.90 Unilateral inguinal hernia, without obstruction or gangrene, not specified as recurrent (principal); R10.32 Left lower quadrant pain; N94.9 Unspecified condition associated with female genital organs and menstrual cycle; Z79.899 Other long term (current) drug therapy
CPT/HCPCS: 36415; 74177; 80048; 81003; 83690; 83735; 85025; 99284; Q9967

== ENCOUNTER → 2021-10-15 08:43 | Outpatient (BNVA) | payer OTHER, SELFPAY | PROVIDERS: PCP Internal Medicine; Referring Provider Internal Medicine; Visit Provider Surgery | DX: K40.90 Unilateral inguinal hernia, without obstruction or gangrene, not specified as recurrent (principal) ==

== ENCOUNTER 2021-10-21 05:54 | Day surgery (SDC) | payer OTHER, SELFPAY ==
[2021-10-21 06:18] VITALS: BMI 18.9
[2021-10-21 06:19] VITALS: BP 157/85; PULSE 54; RESP 16; TEMP 36.3; O2SAT 99; BMI 18.9
[2021-10-21] MEDS: Lactated Ringers 1,000 ML 100 ML IVCONT (06:45)
--- NOTE | 2021-10-21 07:19 | MHC.SHP ---
Pre-Procedural Eval Section A Date of Service: 10/21/21 The patient is an INPATIENT: No Changes since office visit: Yes Patient answered all questions; No Cold of Flu in the past 2 weeks, No New Medical Problems and No Changes in Medication The History & Physical has been completed within 30 days and I have reviewed it.: Yes Section B Chief Complaint: Unilateral inguinal hernia, without obstruction Allergies: Allergies Allergy/AdvReac Type Severity Reaction Status Date / Time bee pollen [BEE STINGS] Allergy Severe ANAPHYLAXIS Verified 10/15/21 09:03 meperidine [From DEMEROL] Allergy Mild VOMITING Verified 10/15/21 09:03 oxycodone [OXYCODONE] Allergy Mild VOMITING Verified 10/15/21 09:03 Plan Diagnosis/Plan: Unchanged I have reviewed the history and physical and performed a pertinent physical examination on my patient. No changes have occurred unless specified.
--- NOTE | 2021-10-21 07:45 | HO.ANESPROP2 ---
HPI - Anesthesia Eval Consult details Narrative: 56 yo female patient for Left Inguinal hernia repair with mesh PMFSH Active Problems Active Problems: All Active Problems (Updated 10/15/21 @ 09:33 by Nick Francisco MD) Left inguinal hernia (Acute) BRCA1 gene mutation positive in female (Acute) History of 2019 novel coronavirus disease (COVID-19) (Acute) Asthma (Acute) Pulmonary nodule (Acute) Past Medical History Medical History Asthma GERD (gastroesophageal reflux disease) History of 2019 novel coronavirus disease (COVID-19) Pulmonary nodule Family History Family History Sister Breast cancer Family/Other Lung cancer Breast cancer Family/Other Breast cancer Family/Other Breast cancer Paternal Aunt Breast cancer Ovarian cancer Mother Stroke Heart disease Asthma Emphysema lung COPD (chronic obstructive pulmonary disease) Diabetes Dementia Father Heart disease Family history of problems with anesthesia: No Surgical History Surgical History History of hysterectomy (2015) History of mastectomy (2015) History of Problems with Anesthesia: No Social History Social History Are you a primary child care education coordinator to a significant other at home: No Do you presently have visiting nurse or other home services: No Alcohol intake: former Patient Tobacco Use Status: Former Tobacco user Quit Date: 2016 Use of substances other than those prescribed or required for medical reasons: No Have you been hit, kicked, punched, or otherwise hurt by someone within the past year? If so, by whom?: No Are you DNR?: No Advance Directives: No Advance Directives Information Provided: Yes Recently lost weight without trying: No Nutrition Risks: No Nutritional Risk Patient : No : No Meds Allergies Allergy/AdvReac Type Severity Reaction Status Date / Time bee pollen [BEE STINGS] Allergy Severe ANAPHYLAXIS Verified 10/21/21 08:02 meperidine [From DEMEROL] Allergy Mild VOMITING Verified 10/21/21 08:02 oxycodone [OXYCODONE] Allergy Mild VOMITING Verified 10/21/21 08:02 Active Medications: Current Medications Lactated Ringer's (Lr) 1,000 mls @ 100 mls/hr IVCONT .Q10H GRAYSON Last Admin: 10/21/21 06:45 Dose: 100 mls/hr Documented by: Home Medications Medication Instructions Recorded Confirmed Last Taken Type albuterol sulfate 2.5 mg INHALATION DAILY 05/17/20 10/15/21 Unknown History aujlsthncz-rckxzoyoanetp-gurcyyda 1 tab PO DAILY PRN 05/17/20 12/18/20 Unknown History 50 mg-325 mg-40 mg tablet cholecalciferol (vitamin D3) 50 50 mcg PO DAILY 05/17/20 10/15/21 Unknown History mcg (2,000 unit) tablet cyanocobalamin (vitamin B-12) 1,000 mcg PO DAILY 05/17/20 10/15/21 Unknown History 1,000 mcg tablet duloxetine 60 mg capsule,delayed 60 mg PO DAILY 05/17/20 10/15/21 Unknown History release multivitamin 1 tab PO DAILY 05/17/20 10/15/21 Unknown History nystatin 100,000 unit/mL oral 100,000 unit PO DAILY 05/17/20 10/15/21 Unknown History suspension pantoprazole 40 mg tablet,delayed 40 mg PO DAILY 05/17/20 10/15/21 Unknown History release propranolol 160 mg capsule,24 160 mg PO DAILY 05/17/20 10/15/21 10/20/21 06:00 History hr,extended release sumatriptan succinate 50 mg tablet 50 mg PO BID PRN 05/17/20 10/15/21 Unknown History erenumab-aooe 70 mg/mL 70 mg SUBCUT QMONTH 10/12/20 10/15/21 Unknown History subcutaneous auto-injector atorvastatin 80 mg tablet 80 mg PO DAILY 10/15/21 10/15/21 Unknown History Exam Exam Date and Time: October 21, 2021 0745 Height,Weight and Vital Signs: Height 5 ft 3 in Weight 48.534 kg Last Vital Signs Temp 97.4 F 10/21/21 06:19 Pulse 54 10/21/21 06:19 Resp 16 10/21/21 06:19 BP 157/85 H 10/21/21 06:19 Pulse Ox 99 10/21/21 06:19 Airway Mallampati Class: II TM Dist: >3cm Neck ROM: Full Partial: Upper Heart: RRR Lungs: CTAB Assessment and Plan Final Anesthetic Review Family History of Problems with Anesthesia: No History of Problems with Anesthesia: No NPO: Yes ASA Class: II Final Preanesthetic Review: No Changes in Pt Med Stat, Meds/Allgs Chart Reviewed, Consent Obtained/Reviewed and Anes Risks/Benef Reviewed Patient Risk: Low Procedure Risk: Low Assessment/Block/Sedation in SS: Assess/Block/Sedation-SS Anesthetic Plan Anesthetic Plan: GA Disposition: Standard PACU
--- NOTE | 2021-10-21 08:26 | P.OP_ITS ---
Operative Note Operative Note Date of Service: 10/21/21 Narrative: Preoperative diagnosis: Left femoral hernia Postoperative diagnosis:same Procedure: Repair of left femoral hernia with mesh Surgeon: Nick Francisco MD Hand Ii Thermal Cutter: Shani Hardy PA-C Anesthesia: General LMA Indications for procedure:56 year old female patient presenting with a lump in the left groin found on exam to have a left inguinal or femoral hernia. CT of the abd/pelvis indicated a left inguinal hernia. Operative findings:Left femoral hernia containing preperitoneal fat. Hernia was repair with a medium PHS mesh Specimen: none Estimated blood loss:2 mls Complications:none Procedure details: patient was brought to the OR and placed in a supine position. After administering general anesthesia the patient's abdomen was prepped with ChloraPrep and draped in a sterile fashion. A surgical time-out was called the consent confirmed. Patient received preoperative antibiotics and Venodyne boots were in place. Local anesthesia consisting of 0.25% Sensorcaine plain was infiltrated over the left inguinal ligament. incision was carried out through subcutaneous tissue, past Cody's fascia, and up to the external oblique aponeurosis. Dissection over the external oblique aponeurosis revealed a palpable hernia coming through the femoral canal. The hernia contents were dissected free from the surrounding subcutaneous tissue down to the femoral canal. The femoral canal was opened slightly by opening the inguinal ligament using electrocautery. The contents contained preperitoneal fat. This was reduced back into the preperitoneal space. Attention was then directed to the external oblique aponeurosis at which time additional local was infiltrated below the fibers of the aponeurosis. This was then incised in the direction of the fibers with a scalpel wide with the Metzen yamileth scissors. The round ligament was then dissected free from the surrounding inguinal canal and retracted using a Hector drain. The direct space was free of any hernia. No indirect hernia could be identified. fibers of the internal oblique aponeurosis and transversalis aponeurosis were then incised with a electrocautery. The preperitoneal space was entered and widened with a open Ray-Louis sponge. The hernia contents from the femoral hernia raise identified and reduced to the preperitoneal space. A medium PHS mesh was then obtained. The circular underlay was deployed within the preperitoneal space covering the femoral hernia. The overlay was then secured to the pubic tubercle, conjoined tendon, and shelving edge of the inguinal ligament using 0 Polysorb sutures. A slit was made in the mesh the internal ring and wrapped around the round ligament. This was then secured to the shelving edge using the 0 Polysorb suture. The remainder of the mesh was then placed below the external oblique aponeurosis laterally. the femoral space was then closed using a 1 Tycron suture to close the inguinal ligament to the Guillermo's ligament using 2 interrupted sutures. The wounds were then irrigated with saline solution and suctioned dry. Wounds were checked for hemostasis. The mesh was then coated with Zenrelef 5.5 mL. External oblique aponeurosis was then closed using a 2 0 Polysorb suture. An additional 5 mm of Zenrelef was then applied to the external oblique aponeurosis. Cody's fascia and dermis were then reapproximated using interrupted 3-0 Polysorb sutures. Skin was closed using a running subcuticular 4-0 Polysorb suture. Steri-Strips, 2 x 2 gauze, and Tegaderm were then applied. The patient tolerated the procedure well. Sponge, instrument, and needle counts reported as correct. The patient was transferred to PACU in stable condition.
[2021-10-21 08:35] VITALS: BP 170/86; PULSE 61; RESP 20; TEMP 36.4; O2SAT 98
[2021-10-21 08:40] VITALS: BP 188/80; PULSE 65; RESP 18; O2SAT 97
[2021-10-21 08:45] VITALS: BP 130/85; PULSE 65; RESP 18; O2SAT 98
[2021-10-21 08:50] VITALS: BP 143/80; PULSE 63; RESP 18; TEMP 36.7; O2SAT 97
[2021-10-21] MEDS: HYDROcodone Bit/Acetam 5/325 TABLET 1 TAB PO (08:56)
[2021-10-21 09:05] VITALS: BP 158/81; PULSE 57; RESP 18; TEMP 36.7; O2SAT 99
== END 2021-10-21 09:42 | disposition home or self-care (01) ==
PROVIDERS: PCP Internal Medicine; Visit Provider Surgery
PROC: (CPT 49550; principal; 2021-10-21 07:30)
DX: K41.90 Unilateral femoral hernia, without obstruction or gangrene, not specified as recurrent (principal); Z98.890 Other specified postprocedural states; Z87.19 Personal history of other diseases of the digestive system; J45.909 Unspecified asthma, uncomplicated; R91.1 Solitary pulmonary nodule; Z86.16 Personal history of COVID-19; K21.9 Gastro-esophageal reflux disease without esophagitis; Z79.899 Other long term (current) drug therapy; Z88.8 Allergy status to other drugs, medicaments and biological substances; Z87.891 Personal history of nicotine dependence
CPT/HCPCS: 49550; C1781; C9399; J0690; J1100; J2250; J2405; J3010

== ENCOUNTER → 2021-10-29 11:09 | Outpatient (BNVA) | payer OTHER, SELFPAY | PROVIDERS: PCP Internal Medicine; Referring Provider Internal Medicine; Visit Provider Surgery | DX: Z13.89 Encounter for screening for other disorder (principal) ==

== ENCOUNTER 2021-11-14 10:43 | Outpatient (REF) | payer OTHER, SELFPAY ==
--- NOTE | ~2021-11-14 | CT_ITS ---
EXAMINATION: CT CHEST WITHOUT CONTRAST CLINICAL INFORMATION: Solitary pulmonary nodule. COMPARISON: CT abdomen and pelvis 10/03/[address] chest 12/18/2020. TECHNIQUE: Multidetector volumetric CT imaging of the chest was done. Axial MIP volume rendering provided. Sagittal and coronal reformatted images were obtained. This CT examination was performed using dose optimization techniques as appropriate, variously including the following: *Automated exposure control *Adjustment of mA and/or kV according to patient size (this includes techniques or standardized protocols for targeted exams where dose is matched to indication/reason for exam; i.e. extremities or head) *Use of iterative reconstruction technique DLP: 91 mGy-cm FINDINGS: BAR BACK: Hyperinflated lungs. Mild dextroscoliosis of the thoracolumbar lumbar spine. LUNGS: There is bilateral mild apical pleural thickening and minimal apical posterior parenchymal thickening. There is a 3 mm new nodule likely intrabronchial on axial image 159/9, 3 mm nodule left upper lobe anterior segment image 161/9. 5 mm thickening of right minor fissure, axial image 179/9, 6 mm nodule left lower lobe axial image 396/3, 3 mm nodule right lower lobe axial image 406/9. All these nodules are stable. No acute pneumonic process is seen. MEDIASTINUM: The thyroid lobes are symmetrical and normal. The central trachea and the bronchi are widely patent. The heart size and the great vessels are of normal caliber. There are small shotty pretracheal lymph nodes with the largest lymph node measuring 5 mm in thickness and 1.4 cm long. There is no pericardial effusion. PLEURA: There is no pleural effusion. No pleural mass or thickening. AXILLA: There are no abnormal axillary lymph nodes. The chest wall is unremarkable. UPPER ABDOMEN: There is 1 cm hypodensity in the left hepatic lobe axial image 52/3. Otherwise the rest of the visualized liver, spleen, pancreas and bilateral adrenal glands are unremarkable. OSSEOUS STRUCTURES: Unremarkable. CT/CT chest wo con IMPRESSION: Stable bilateral pulmonary nodules except for a solitary new pulmonary nodule in the right upper lobe which appears intrabronchial. No abnormal mediastinal or axillary lymphadenopathy. 1 cm hypodensity left hepatic lobe, a probable cyst. Fleischner guidelines were followed.
== END 2021-11-14 10:44 | disposition home or self-care (01) ==
LOC: HO.CT 10:43
PROVIDERS: Visit Provider Internal Medicine
DX: R91.8 Other nonspecific abnormal finding of lung field (principal)
CPT/HCPCS: 71250

== ENCOUNTER 2021-11-29 10:16 | Day surgery (SDC) | payer OTHER, SELFPAY ==
[2021-11-22 16:05] VITALS: BMI 19.1
--- NOTE | 2021-11-28 09:44 | HO.ANESPROP2 ---
Documented by User: Su Ambrosio NP 11/28/21 09:45 HPI - Anesthesia Eval Consult details Narrative: 56yo F for Upper Endoscopy and Colonoscopy PMFSH Active Problems Active Problems: All Active Problems (Updated 11/22/21 @ 16:02 by Sigrid Ambriz, SHEILA) BRCA1 gene mutation positive in female (Acute) Left inguinal hernia (Acute) Femoral hernia (Acute) History of 2019 novel coronavirus disease (COVID-19) (Acute) Asthma (Acute) Pulmonary nodule (Acute) Past Medical History Medical History GERD (gastroesophageal reflux disease) Hx of migraines Restless leg syndrome Family History Family History Sister Breast cancer Family/Other Lung cancer Breast cancer Family/Other Breast cancer Family/Other Breast cancer Paternal Aunt Breast cancer Ovarian cancer Mother Stroke Heart disease Asthma Emphysema lung COPD (chronic obstructive pulmonary disease) Diabetes Dementia Father Heart disease Family history of problems with anesthesia: No Surgical History Surgical History History of esophagogastroduodenoscopy (EGD) History of femoral hernia repair (10/21/21) History of hysterectomy (2014) History of mastectomy (2014) Hx of colonoscopy Hx of tubal ligation History of Problems with Anesthesia: No Social History Social History Are you a primary director of managed care to a significant other at home: No Do you presently have visiting nurse or other home services: No Alcohol intake: former Patient Tobacco Use Status: Former Tobacco user Quit Date: 2016 Use of substances other than those prescribed or required for medical reasons: No Advance Directives: No Advance Directives Information Provided: Yes Recently lost weight without trying: No Meds Allergies Allergy/AdvReac Type Severity Reaction Status Date / Time bee pollen [BEE STINGS] Allergy Severe ANAPHYLAXIS Verified 11/28/21 08:47 meperidine [From DEMEROL] Allergy Mild VOMITING Verified 11/28/21 08:47 oxycodone [OXYCODONE] Allergy Mild VOMITING Verified 11/28/21 08:47 Home Medications Medication Instructions Recorded Confirmed Last Taken Type albuterol sulfate 2.5 mg inhalation DAILY 05/17/20 10/29/21 Unknown History ccveyeeuta-ewsltsxhxnsrl-ivgfttpb 1 tab PO DAILY PRN Migraine 05/17/20 10/29/21 Unknown History 50 mg-325 mg-40 mg tablet Headache cholecalciferol (vitamin D3) 50 50 mcg PO DAILY 05/17/20 10/29/21 Unknown History mcg (2,000 unit) tablet cyanocobalamin (vitamin B-12) 1,000 mcg PO DAILY 05/17/20 10/29/21 Unknown History 1,000 mcg tablet duloxetine 60 mg capsule,delayed 60 mg PO DAILY 05/17/20 10/29/21 Unknown History release multivitamin 1 tab PO DAILY 05/17/20 10/29/21 Unknown History nystatin 100,000 unit/mL oral 100,000 unit PO DAILY 05/17/20 10/29/21 Unknown History suspension pantoprazole 40 mg tablet,delayed 40 mg PO DAILY 05/17/20 10/29/21 Unknown History release propranolol 160 mg capsule,24 160 mg PO DAILY 05/17/20 10/29/21 10/20/21 06:00 History hr,extended release sumatriptan succinate 50 mg tablet 50 mg PO BID PRN Migraine Headache 05/17/20 10/29/21 Unknown History erenumab-aooe 70 mg/mL 70 mg subcut QMONTH 10/12/20 10/29/21 Unknown History subcutaneous auto-injector atorvastatin 80 mg tablet 80 mg PO DAILY 10/15/21 10/29/21 Unknown History Exam Exam Date and Time: November 28, 2021 0944 Height,Weight and Vital Signs: Height 5 ft 3 in Weight 48.988 kg Pertinent Lab Results Pertinent Lab Results: Laboratory Tests 10/03/21 10/03/21 08:33 08:33 WBC 5.1 Hgb 12.7 Hct 39.4 Plt Count 279 Sodium 141 Potassium 4.5 Chloride 107 Carbon Dioxide 29 BUN 7 L Creatinine 0.83 Assessment and Plan Assessment Anesthesia Assessment: Chart Reviewed Final Anesthetic Review Family History of Problems with Anesthesia: No History of Problems with Anesthesia: No Documented by User: Karla Espinosa MD 11/29/21 11:33 PMFSH Active Problems Active Problems: All Active Problems (Updated 11/22/21 @ 16:02 by Sigrid Ambriz, RN) BRCA1 gene mutation positive in female (Acute) Left inguinal hernia (Acute) Femoral hernia (Acute) History of 2019 novel coronavirus disease (COVID-19) (Acute) Asthma (Acute). Patient denies. Was given inhaler when she had covid in 2020 Pulmonary nodule (Acute) Past Medical History Medical History GERD (gastroesophageal reflux disease) Hx of migraines Restless leg syndrome Family History Family History Sister Breast cancer Family/Other Lung cancer Breast cancer Family/Other Breast cancer Family/Other Breast cancer Paternal Aunt Breast cancer Ovarian cancer Mother Stroke Heart disease Asthma Emphysema lung COPD (chronic obstructive pulmonary disease) Diabetes Dementia Father Heart disease Surgical History Surgical History History of esophagogastroduodenoscopy (EGD) History of femoral hernia repair (10/21/21) History of hysterectomy (2014) History of mastectomy (2014) Hx of colonoscopy Hx of tubal ligation Social History Social History Are you a primary director of managed care to a significant other at home: No Do you presently have visiting nurse or other home services: No Alcohol intake: former Patient Tobacco Use Status: Former Tobacco user Quit Date: 2016 Use of substances other than those prescribed or required for medical reasons: No Advance Directives: No Advance Directives Information Provided: Yes Recently lost weight without trying: No Meds Allergies Allergy/AdvReac Type Severity Reaction Status Date / Time bee pollen [BEE STINGS] Allergy Severe ANAPHYLAXIS Verified 11/28/21 08:47 meperidine [From DEMEROL] Allergy Mild VOMITING Verified 11/28/21 08:47 oxycodone [OXYCODONE] Allergy Mild VOMITING Verified 11/28/21 08:47 Home Medications Medication Instructions Recorded Confirmed Last Taken Type albuterol sulfate 2.5 mg inhalation DAILY 05/17/20 10/29/21 Unknown History powdzfnphu-cwahrywfpazid-avkmkkor 1 tab PO DAILY PRN Migraine 05/17/20 10/29/21 Unknown History 50 mg-325 mg-40 mg tablet Headache cholecalciferol (vitamin D3) 50 50 mcg PO DAILY 05/17/20 10/29/21 Unknown History mcg (2,000 unit) tablet cyanocobalamin (vitamin B-12) 1,000 mcg PO DAILY 05/17/20 10/29/21 Unknown History 1,000 mcg tablet duloxetine 60 mg capsule,delayed 60 mg PO DAILY 05/17/20 10/29/21 Unknown History release multivitamin 1 tab PO DAILY 05/17/20 10/29/21 Unknown History nystatin 100,000 unit/mL oral 100,000 unit PO DAILY 05/17/20 10/29/21 Unknown History suspension pantoprazole 40 mg tablet,delayed 40 mg PO DAILY 05/17/20 10/29/21 Unknown History release propranolol 160 mg capsule,24 160 mg PO DAILY 05/17/20 10/29/21 10/20/21 06:00 History hr,extended release sumatriptan succinate 50 mg tablet 50 mg PO BID PRN Migraine Headache 05/17/20 10/29/21 Unknown History erenumab-aooe 70 mg/mL 70 mg subcut QMONTH 10/12/20 10/29/21 Unknown History subcutaneous auto-injector atorvastatin 80 mg tablet 80 mg PO DAILY 10/15/21 10/29/21 Unknown History Exam Height,Weight and Vital Signs: Height 5 ft 3 in Weight 48.988 kg Vital Signs Temp Pulse Resp BP Pulse Ox O2 Del Method 11/29/21 10:28 97.5 F 68 15 150/67 H 98 Room Air Airway Mallampati Class: II TM Dist: >3cm Neck ROM: Full Partial: Upper and Lower Loose/Missing/Broken Teeth: No (Patient denies loose or broken ) Heart: RRR Lungs: CTAB Assessment and Plan Assessment Anesthesia Assessment: Anesthesia Plan Discussed Final Anesthetic Review NPO: Yes ASA Class: II Final Preanesthetic Review: No Changes in Pt Med Stat, Meds/Allgs Chart Reviewed, Consent Obtained/Reviewed and Anes Risks/Benef Reviewed Patient Risk: Low Procedure Risk: Low Assessment/Block/Sedation in SS: Assess/Block/Sedation-SS Anesthetic Plan Anesthetic Plan: MAC: Disposition: Standard PACU
--- NOTE | 2021-11-28 17:53 | PM.EVENT ---
Event Note Date of Service: 11/28/21 Event Note: Started the prep at 3 pm - took 2 dulcolax tablets. At 5 pm - Drank 8 ounces of Miralax and it came back up 2nd cup also came back up Unable to keep the prep down Pt advised to take Magnesium Citrate prep - sent to her preferred pharmacy
[2021-11-29 10:28] VITALS: BP 150/67; PULSE 68; RESP 15; TEMP 36.4; O2SAT 98; BMI 19.1
[2021-11-29] MEDS: Lactated Ringers 1,000 ML 100 ML IVCONT (10:42)
[2021-11-29 12:35] VITALS: BP 113/71; PULSE 82; RESP 16; TEMP 36.1; O2SAT 99
--- NOTE | 2021-11-29 12:42 | PM.OP ---
Brief Operative Note Date of Service: 11/29/21 Pre-op diagnosis: GERD, Screening Post-op diagnosis: other (Hiatal hernia, Colon polyps) Procedure: EGD with biopsies, Colonoscopy to the cecum and TI with bx/removal of polyps Surgeon: Yimi Silva Anesthesia: MAC Was an Reporting Process Consultant used for this Procedure?: No Estimated blood loss (mL): 2.0 Pathology: other (A. EG Junction at 35cm B. Transverse colon polyp C. Polyp at 20cm) Condition: stable Disposition: PACU
[2021-11-29 12:50] VITALS: BP 117/76; PULSE 68; RESP 16; O2SAT 99
[2021-11-29 13:05] VITALS: BP 105/75; PULSE 68; RESP 16; TEMP 36.1; O2SAT 99
--- NOTE | 2021-11-29 13:07 | OP_ITS ---
SURGEON: Yimi Silva MD INDICATIONS: The patient presents for evaluation of gastroesophageal reflux, family history of colon cancer, and colorectal cancer screening. Full consent has been obtained from her for this, including risks of bleeding and perforation. PREOPERATIVE DIAGNOSIS: POSTOPERATIVE DIAGNOSIS: PROCEDURE PERFORMED: Esophagogastroduodenoscopy with biopsies, and colonoscopy to the cecum and terminal ileum with biopsy and removal of polyps. ESTIMATED BLOOD LOSS: COMPLICATIONS: ANESTHESIA: Monitored anesthesia care. ASSISTANTS: SPECIMENS: PREOPERATIVE DIAGNOSES: Gastroesophageal reflux and colorectal cancer screening. POSTOPERATIVE DIAGNOSES: Gastroesophageal reflux and colorectal cancer screening, small colon polyps, mild sigmoid diverticulosis, internal hemorrhoids, hiatal hernia. DESCRIPTION OF PROCEDURE: The patient was placed in the left lateral decubitus position. The Olympus video gastroscope was passed in the posterior oropharynx and upper esophagus under direct vision. The scope was passed slowly to the distal esophagus. The gastroesophageal junction appeared at 35 cm. There was a very minimal irregularity consistent with reflux, but no evidence of any esophagitis nor any definitive evidence of Forman mucosa. The scope was entered into the stomach. There was a small hiatal hernia. The scope was advanced to the pylorus and the duodenum was cannulated to the descending portion. The duodenum including the bulb appeared normal without mass or ulceration. Scope was withdrawn back in the stomach. The gastric antrum and body appeared normal with good peristalsis. The scope was retroflexed visualizing the proximal stomach carefully, which appeared normal, without any sign of mass or ulceration. The scope was straightened and withdrawn back from the esophagus. Biopsies were obtained of the EG junction at 35 cm. Proximal to this, the esophageal mucosa appeared normal. The scope was withdrawn from the patient. She was turned around for colonoscopy. The digital rectal exam revealed no abnormalities. The Olympus video pediatric colonoscope was entered into the rectum and advanced easily to the cecum. Once in the cecum, I did identify normal-appearing cecal pouch with appendiceal orifice and a normal-appearing ileocecal valve. The entire cecum was well visualized and appeared normal. The terminal ileum was cannulated and appeared normal. Scope was withdrawn back in the colon. The scope was then slowly withdrawn assessing all mucosal surfaces carefully. Preparation was excellent. In the transverse colon and at 20 cm were less than 5 mm polyps, which were each biopsied and completely removed with cold biopsy forceps. I did not visualize any other polyps, colitis, nor angiodysplasia. There was a mild amount of sigmoid diverticulosis. In the rectum, scope was retroflexed visualizing internal hemorrhoids, but no other pathology. The rectal mucosa appeared normal. The scope was straightened and withdrawn from the patient. She tolerated both procedures well and was returned to the recovery area in stable condition. IMPRESSION: 1. Small colon polyps, status post biopsy removal. 2. Mild sigmoid diverticulosis. 3. Internal hemorrhoids. 4. Small hiatal hernia, gastroesophageal reflux. PLAN: The results of the biopsy will be checked. I would recommend a repeat colonoscopy in 5 years for further screening and surveillance given her significant family history. She will continue her Prilosec once or twice a day for symptomatic relief of reflux. She will otherwise see me on a p.r.n. basis. MD ADELA Ochoa/ELVIRA / [id number]
== END 2021-11-29 13:43 | disposition home or self-care (01) ==
PROVIDERS: PCP Internal Medicine; Visit Provider Internal Medicine
PROC: (CPT 45380; principal; 2021-11-29 11:50)
DX: Z12.11 Encounter for screening for malignant neoplasm of colon (principal); Z80.0 Family history of malignant neoplasm of digestive organs; D12.3 Benign neoplasm of transverse colon; K63.5 Polyp of colon; K57.30 Diverticulosis of large intestine without perforation or abscess without bleeding; K64.8 Other hemorrhoids; K21.9 Gastro-esophageal reflux disease without esophagitis; K44.9 Diaphragmatic hernia without obstruction or gangrene; E78.5 Hyperlipidemia, unspecified; J98.4 Other disorders of lung; U09.9 Post COVID-19 condition, unspecified; G43.909 Migraine, unspecified, not intractable, without status migrainosus; G25.81 Restless legs syndrome; Z79.899 Other long term (current) drug therapy; Z88.8 Allergy status to other drugs, medicaments and biological substances; Z87.891 Personal history of nicotine dependence; Z15.01 Genetic susceptibility to malignant neoplasm of breast; Z90.13 Acquired absence of bilateral breasts and nipples
CPT/HCPCS: 45380; 43239; 88305; J3010

== ENCOUNTER 2022-05-05 10:26 | Emergency (ER) | payer OTHER, SELFPAY ==
[2022-05-05 10:32] VITALS: BP 150/100; PULSE 99; RESP 18; TEMP 36.6; O2SAT 99; BMI 17.6
--- OUTSIDE RECORDS SUMMARY | 2022-05-05 10:55 | XMS_ITS ---
:1965 Author Organization [facility] Address [address] [place] [address] Care Team Providers Name Role Phone Yimi Silva Unavailable Unavailable PROBLEMS Type Condition ICD9-CM [id number] Onset Condition SNOMED Cod e Code Code Dates Status Problem Gastroesophageal K21.9 Active 266 346638 reflux disease without esophagitis Problem Esophageal reflux K21.9 Active disease Problem Diverticulosis of K57.30 Active 73 7313736 colon Problem Family history of Z80.0 Active 31 2494433 colon cancer Problem Encounter for Z12.12 Active 434347 007 screening for malignant neoplasm of rectum Problem Encounter for Z12.11 Active 408685 004 screening for malignant neoplasm of colon Problem Gastroesophageal K21.9 Active reflux disease, unspecified whether esophagitis present ALLERGIES Substance Reaction Event Type Date Status Bee Pollen Unknown Drug Allergy Sep, Active Oxycodone HCl Unknown Drug Allergy Sep, Active Demerol Unknown Drug Allergy Sep, Active ENCOUNTERS Encounter Location Date Diagnosis [address] Jan, [facility] [address] [place] [address] [facility] [address] [place] [address] Nov, Colon cancer [facility] [place] Re[place] [id number] Z12.11 ; C olon polyps K63.5 ; Internal hemor rhoids K64.8 ; Diverticulosis of colon K57.30 ; Hiatal hernia K44.9 and Esophageal r eflux disease K21.[address] October, [facility] [address] [place] [address] [facility] [address] Sep, [facility] [address] [place] disease, u nspecified whether [id number] esophagitis pres ent K21.9 ; Encounter for sc reening for malignant neopla sm of colon Z12.11 and Famil y history of colon cancer Z80 .0 [facility] [address] Feb, [place] [id number] [facility] [address] Dec, [facility] [address] [place] disease wi thout esophagitis [id number] K21.9 ; Encounte r for screening for bria lignant neoplasm of colo n Z12.11 ; Encounter for sc reening for malignant neopla sm of rectum Z12.12 and Famil y history of colon cancer Z80 .0 [facility] [address] Mar, Special screeni ng for BRIA Reinoso [id number] malignant neoplasms, colon V76.51 and Famil y history of malignant neopla sm of gastrointestinal tract V16.0 [facility] ER [address] Jan, [place] [id number] [facility] [place] [facility] [address] Nov, [place]inoso [id number] [facility] [address] Jun, [place] [id number] IMMUNIZATIONS Vaccine Route Administration Date Status Influenza Unknown May 01, 2021 Administered SOCIAL HISTORY Never Assessed REASON FOR REFERRAL FUNCTIONAL STATUS PLAN OF CARE Activity Details Future/Pending Procedure UPPER GI ENDOSCOPY 20211011 Future/Pending Procedure COLONOSCOPY 20211011 Future/Pending Procedure COLONOSCOPY 20160102 VITAL SIGNS Weight 108 lbs 2021-10-11 Weight 101 lbs 2016-01-02 Height 63 in 2021-10-11 Height 63 in 2016-01-02 BMI 19.13 kg/m2 2021-10-11 BMI 17.89 kg/m2 2016-01-02 Heart Rate 64 /min 2016-01-02 Temperature 97.7 degrees Fahrenheit 2021-10-11 Blood pressure systolic 000 mm Hg 2021-10-11 Blood pressure diastolic 00 mm Hg 2021-10-11 MEDICATIONS Medication Instructions Dosage Frequency Start End Duration Statu s Date Date Propranolol HCl Orally Once a 1 capsule 24h Active ER 120 MG day Omeprazole 20 MG Orally Once a 2 capsules 24h Active day Cyanocobalamin Orally Once a 1 tablet 24h Ac tive 1000 MCG day Fioricet Orally prn 1 capsule Active 50-300-40 MG as needed Aimovig 70 MG/ML as directed Act lorne Vitamin D3 2000 Orally Once a 1 capsule 24h Active UNIT day rOPINIRole HCl Orally prn 1 tablet 1 Not -Taki 0.25 MG to 3 hours ng before bedtime Sertraline HCl 50 Orally Once a 1 tablet 24h Not-Taki MG day ng Topiramate 50 MG Orally Once a 1 tablet 24h Not-Taki day ng Prilosec 20 MG Orally twice a 2 capsule 12h 10 day(s ) Not-Taki day ng SUMAtriptan Orally prn 1 tablet as Activ e Succinate 50 MG needed Atorvastatin Orally Once a 1 tablet 24h Acti ve Calcium 20 MG day PROCEDURES Procedure Date Ordered Result Body Site BP SCR NOT PRFRM REC REASON NOS October 11, 2021 TOBACCO NON-USER October 11, 2021 DOC MEDS VERIFIED W/PT OR RE October 11, 2021 COLORECTAL CA SCREEN DOC REV October 11, 2021 UPPER GI ENDOSCOPY, BIOPSY November 29, 2021 COLONOSCOPY AND BIOPSY November 29, 2021 DIAGNOSTIC COLONOSCOPY Apr 02, 2011 RESULTS Name Result Date Reference Range Pathology 2021-11-29 REASON FOR VISIT pt with concerns with past prep, screening, fam hx colon ca, Hernia SURGERY October /PROCEDURE October, Patient presents today for GERD, Patient presents today for GERD, Patient presents today for follow up for GERD, screening colonoscopy, pre-colon Insurance Providers [facility] Health Member Patient Patient Patient Patient Patient Subscriber Subscriber Subscriber Group Insurance Plan Plan Plan Plan ID Relationship Address Phone Name Date of ID Name Date of No Type Insurance Insurance Insurance Coverage to Subscriber Address Phone Name Dates [facility] [place] [phone] [facility] [id number] ROMULUS MONARCH [address] [facility] [id number]
--- OUTSIDE RECORDS SUMMARY | 2022-05-05 10:55 | XMS_ITS | Continuity of Care Document ---
:1965 Author Organization [facility] Address [address] [facility] [facility] [address] [place] [address]- Care Team Providers Name Role Phone Yimi Norris DO Primary Care Physician [place] [facility] 12/05/20 - 01/04/21 [facility] [address] [place] [address]- Allergies, Adverse Reactions, Alerts Substance Reaction Severity Status Demerol HCl Active Bee Stings Active oxyCODONE Active Medications atorvastatin 20 mg oral tablet 1 tablet = 20 mg, By Mouth, Daily at bedtime, 0 Refills, Maintenance, 04/19/15 12:13:39 Start Date: 04/19/15 Status: OrderedColace sodium 100 mg oral capsule 1 capsule = 100 mg, By Mouth, 2 times a day, PRN Constipation, # 20 capsule, 0 Refills, Maintenance,05/18/15 15:39:21, Capsule Start Date: 05/18/15 Stop Date: 05/28/15 Status: OrderedCymbalta 20 mg oral enteric coated capsule 1 capsule = 20 mg, By Mouth, Daily, 0 Refills, Maintenance, 01/11/18 9:23:43 EDT Start Date: 01/11/18 Status: OrderedFioricet Tablet By Mouth, Every 4 hours, 0 Refills, Maintenance, 04/19/15 12:14:58 Start Date: 04/19/15 Status: OrderedMastectomy Bra See Instructions, # 2 each, Refills 1, Tot. Refills 1, Maintenance, hx mastectomy, 06/05/15 16:45:50, Compound Start Date: 06/05/15 Status: OrderedMastectomy Prosthesis See Instructions, # 2 each, Refills 1, Tot. Refills 1, Maintenance, hx randy mastectomy, 06/05/15 16:45:41, Compound Start Date: 06/05/15 Status: Orderednaproxen 500 mg (as sodium) oral tablet, extended release 1 tablet = 500 mg, By Mouth, 2 times a day, 0 Refills, Maintenance, 01/11/18 9:25:04 EDT Start Date: 01/11/18 Status: OrderedNaratriptan By Mouth, Daily, PRN as needed for migraine headache, 0 Refills, Maintenance, 01/11/18 9:23:59 EDT Start Date: 01/11/18 Status: OrderedOmeprazole By Mouth, Daily, 0 Refills, Maintenance, 04/23/15 9:52:38 Start Date: 04/23/15 Status: Orderedpropranolol 160 mg oral capsule, extended release 1 capsule = 160 mg, By Mouth, Daily, 0 Refills, Maintenance, 01/11/18 9:24:39 EDT Start Date: 01/11/18 Status: OrderedVitamin B12 1000 mcg oral tablet 1 tablet = 1,000 mcg, By Mouth, Daily, 0 Refills, Maintenance, 04/19/15 12:15:33 Start Date: 04/19/15 Status: OrderedVitamin D3 2000 intl units oral capsule 1 capsule = 2,000 International_Units, By Mouth, Daily, 0 Refills, Maintenance, 04/19/15 12:15:14 Start Date: 04/19/15 Status: Ordered Social History Social History Type Response Smoking Status Former smoker entered on: 06/25/15 Sex
--- NOTE | 2022-05-05 11:17 | PC.NURSE ---
pt is a/ o x 4 no sob/regan noted lungs - cta. speaks in full sentences. heart sounds regular. abd soft and no-tender. bx + x 4 quads. no edema noted. pt c/o randy leg cramping. denies any abd pain but states n/v earlier.
--- NOTE | 2022-05-05 11:39 | ED_ITS ---
HPI - General Adult General Chief complaint: Abdominal Pain Stated complaint: vomiting dehydration Time Seen by Provider: 05/05/22 10:37 Source: patient Mode of arrival: ambulatory Limitations: no limitations History of Present Illness HPI narrative: 56-year-old female with a history of asthma, GERD presents with acute on chronic vomiting Thursday. Patient reports that she has had intermittent vomiting for many months. Patient has been seen by GI and had endoscopy which showed GERD. She has been on omeprazole twice daily since for endoscopy. Patient reports over the last month or 2 she has had some increase in symptoms and so her primary started her on Carafate twice daily. Patient reports is not really helping. She reports since Thursday she has had more vomiting. Feels like she is dehydrated with muscle cramping. Patient feels she is nauseous when her stomach is empty. She denies any bloody emesis. Sometimes she has bile at the end of vomiting. Patient denies any associated abdominal pain, fever, diarrhea, constipation or urinary symptoms. Patient reports multiple life stressors at home with family and anxiety Related Data Home Medications Medication Instructions Recorded Confirmed albuterol sulfate 2.5 mg/3 mL 2.5 mg inhalation DAILY 05/17/20 12/17/21 (0.083 %) solution for nebulization [id number]-wxsmwsywrngmb-nzffmesd 1 tab PO DAILY PRN Migraine 05/17/20 12/17/21 50 mg-325 mg-40 mg tablet Headache cholecalciferol (vitamin D3) 50 50 mcg PO DAILY 05/17/20 12/17/21 mcg (2,000 unit) tablet cyanocobalamin (vitamin B-12) 1,000 mcg PO DAILY 05/17/20 12/17/21 1,000 mcg tablet duloxetine 60 mg capsule,delayed 60 mg PO DAILY 05/17/20 12/17/21 release multivitamin 1 tab PO DAILY 05/17/20 12/17/21 pantoprazole 40 mg tablet,delayed 40 mg PO DAILY 05/17/20 12/17/21 release propranolol 160 mg capsule,24 160 mg PO DAILY 05/17/20 12/17/21 hr,extended release sumatriptan succinate 50 mg tablet 50 mg PO BID PRN Migraine Headache 05/17/20 12/17/21 erenumab-aooe 70 mg/mL 70 mg subcut QMONTH 10/12/20 12/17/21 subcutaneous auto-injector atorvastatin 80 mg tablet 80 mg PO DAILY 10/15/21 12/17/21 nystatin 100,000 unit/mL oral 100,000 unit PO DAILY PRN 01/21/22 suspension Previous Rx's Medication Instructions Recorded ondansetron 4 mg disintegrating 4 mg PO Q8H PRN nausea and 11/28/21 tablet vomiting 1 day #4 tabs albuterol sulfate 90 mcg/actuation 2 inh inhalation Q6H PRN shortness 01/21/22 aerosol inhaler of breath or wheezing 30 days #18 grams lorazepam 0.5 mg tablet 0.5 mg PO BEDTIME PRN anxiety #8 05/05/22 tabs Allergies Allergy/AdvReac Type Severity Reaction Status Date / Time bee pollen [BEE STINGS] Allergy Severe ANAPHYLAXIS Verified 01/21/22 13:23 meperidine [From DEMEROL] Allergy Mild VOMITING Verified 01/21/22 13:23 oxycodone [OXYCODONE] Allergy Mild VOMITING Verified 01/21/22 13:23 Review of Systems Review of Systems: Yes all other systems are reviewed and are negative Constitutional: Constitutional: Reports no additional constitutional complaints, Denies body ache(s), Denies chills, Denies fever(s), Denies headache (s) and Denies weakness Eyes: Eyes: Reports no additional eye complaints and Denies change in vision ENT: Reports system reviewed and no additional complaints, except as documented, Denies dizziness, Denies headache(s), Denies nasal congestion, Denies nasal discharge and Denies neck pain Cardiovascular: Cardiovascular: Reports no additional cardiovascular comp laints, Denies chest pain, Denies leg edema and Denies dyspnea Respiratory: Respiratory: Reports no additional respiratory complaints, Denies cough and Denies dyspnea Gastrointestinal: Gastrointestinal: Reports no additional gastrointestinal complaints, Denies abdominal pain, Denies diarrhea, Reports nausea and Reports vomiting Genitourinary: Genitourinary: Reports no additional female genitourinary complaints and Denies urinary incontinence Musculoskeletal: Musculoskeletal: Reports no additional musculoskeletal complaints, Denies back pain, Denies arthralgias, Denies joint swelling, Reports muscle cramps, Denies neck pain, Denies numbness and Denies tingling Integumentary/Breasts: Skin/Breast: Reports system reviewed and no additional complaints, except as docu and Denies rash Neurologic: Reports system reviewed and no additional complaints, except as documented, Denies dizziness, Denies headache(s), Denies numbness, Denies tingling and Denies weakness PMFSH Past Medical History Attestation statement: The following information was validated with the patient. Source: old records reviewed and nursing notes reviewed Medical History Asthma GERD (gastroesophageal reflux disease) History of 2019 novel coronavirus disease (COVID-19) Hx of migraines Pulmonary nodule Restless leg syndrome Surgical History History of esophagogastroduodenoscopy (EGD) History of femoral hernia repair (10/21/21) History of hysterectomy (2014) History of mastectomy (2014) Hx of colonoscopy Hx of tubal ligation Family History Family History Sister Breast cancer Family/Other Lung cancer Breast cancer Family/Other Breast cancer Family/Other Breast cancer Paternal Aunt Breast cancer Ovarian cancer Mother Stroke Heart disease Asthma Emphysema lung COPD (chronic obstructive pulmonary disease) Diabetes Dementia Father Heart disease Social History Social History Household Members: Spouse and Children Housing: House 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 Do you presently have visiting nurse or other home services: No Alcohol intake: former Patient Tobacco Use Status: Former Tobacco user Quit Date: 2016 Advance Directives: No Advance Directives Information Provided: Yes Patient : No service: No Current occupational status: employed Physical Exam ED Vital Signs: Vital Signs - 24 hr 05/05/22 10:32 05/05/22 12:18 05/05/22 13:51 Temperature 97.8 F 98.0 F 97.9 F Pulse Rate 99 84 85 Respiratory Rate 18 18 14 Blood Pressure 150/100 H 155/89 H 153/86 H Pulse Oximetry 99 98 96 Oxygen Delivery Method Room Air Room Air Room Air 05/05/22 14:00 Temperature 98.2 F Pulse Rate 74 Respiratory Rate 16 Blood Pressure 135/77 Pulse Oximetry 97 Oxygen Delivery Method Room Air BMI result Body Mass Index 17.6 Const General: cooperative, no acute distress, alert and awake Nutritional Appearance: well nourished Orientation/consciousness: patient oriented x3 Limitations: no limitations HENMT Head: Yes normal to inspection and Yes atraumatic Ears: hearing grossly normal bilaterally and external ears normal General nose exam: Normal external nose present, no nasal discharge noted and no epistaxis Face and sinus: Yes normal facial exam, No abrasion and No laceration Mouth: Normal oral and palatal mucosa present, no drooling and no muffled voice Eyes General: appearance normal, both eyes and all related structures Periorbital: periorbital findings normal Eyelids: Yes eyelids normal Conjunctivae: conjunctivae normal Pupils: Equal, round and reactive pupils present EOM: EOMs intact bilaterally Neck Neck: Yes normal visual inspection, Yes full ROM and Yes no lymphadenopathy Chest Chest palpation & inspection: normal inspection of the chest Resp Effort & Inspection: normal respiratory effort and able to speak in complete sentences Auscultation: clear to auscultation bilaterally Cardio Rate: regular rate Rhythm: regular rhythm GI Inspection: Yes normal to inspection Palpation (GI): Soft to palpation, not firm, nontender, no guarding, not rigid and Other GI palpation findings present (left lower abdominal wall hernia felt, easily reducable ) Auscultation: normal bowel sounds Neuro General: patient oriented x3 and moves all extremities Cranial nerves: Yes Equal, round and reactive pupils present Cognition (Neuro): normal cognition Motor exam (neuro): 5/5 motor strength present throughout Sensory Exam: Normal double simultaneous stimulation for sensation Coordination: ozbwhk-ek-ldoe test normal Extrem General: Yes normal to inspection, Yes full ROM and Yes capillary refill normal Psych Appearance: grossly normal Mental Status: mental status grossly normal Affect: normal affect Attitude: cooperative Thought process: Normal thought process present Thought content: Normal thought content present Insight: Good insight present (Psych) Course Course Course Narrative: Labs are unremarkable. Patient feels improved after some gentle IV fluids. I do believe that some of the symptoms the patient be having may be related to underlying anxiety however she does have diagnosed GERD. Recommend she follow up with GI She can increase her dose of Carafate to 3 times daily We discussed dietary changes as patient is still drinking 8-10 cans of Coca-Cola day Additionally the patient was seen by care team who provided her with outpatient therapy list. Patient is establish a therapist outpatient. Will send home with shantel Woodward Reviewed worrisome signs and symptoms of when to return to the emergency room. Comfortable him for discharge home. Medications Administered Discontinued Medications Generic Name Dose Route Start Last Admin Trade Name Constantino PRN Reason Stop Dose Admin Sodium Chloride 1,000 mls @ 999 mls/hr 05/05/22 11:25 05/05/22 14:21 Ns IV 05/05/22 12:25 Infused .Q1H1M STA Infusion Medical Decision Making [facility] Narrative Medical decision making narrative: 56-year-old female with a longstanding history of intermittent vomiting with underlying GERD here with increasing symptoms since Thursday and feeling dehydrated with muscle cramps. Abdomen is soft nontender. Will check labs, UA, provide IV fluids Additionally patient quite anxious with multiple life stressors recently Medical Records Medical records reviewed: Yes I reviewed the patient's medical records. Lab Data Lab results reviewed: Yes I reviewed the patient's lab results. Result diagrams: 05/05/22 11:49 05/05/22 11:49 Labs: Lab Results 05/05/22 05/05/22 Range/Units 11:49 11:49 WBC 5.2 (4.8-10.8) X10*3/uL RBC 5.02 (4.20-5.50) X10*6/uL Hgb 14.7 (12.0-16.0) g/dl Hct 45.2 (37.0-47.0) % MCV 90.0 (80.0-98.0) fL MCH 29.3 (27.0-33.0) pg MCHC 32.5 (31.0-35.0) g/dl RDW 13.1 (11.0-16.0) % Plt Count 242 (160-400) X10*3/uL MPV 11.4 (9.4-12.3) fL Immature Gran % (Auto) 0.2 (0.0-0.4) % Neut % (Auto) 57.3 (45-73) % Lymph % (Auto) 31.2 (20-40) % [place] % (Auto) 10.3 (2-11) % Eos % (Auto) 0.6 (0-4) % Baso % (Auto) 0.4 (0-2) % Lymph # (Auto) 1.6 (1.2-4.9) X10*3/uL [place] # (Auto) 0.5 (0.1-1.2) X10*3/uL Eos # (Auto) 0.0 (0.0-0.4) X10*3/uL Baso # (Auto) 0.0 (0.0-0.2) X10*3/uL Abs Immat Gran (auto) 0.01 (0.00-0.03) X10*3/uL Absolute Neuts (auto) 3.0 (2.0-8.3) x10*3/uL Absolute Nucleated RBC 0.000 (0.0-0.012) X10*3/uL Nucleated RBC % (auto) 0.0 (0.0-0.2) /100WBC Sodium 141 (135-145) mmol/L Potassium 3.9 (3.3-5.1) mmol/L Chloride 100 (96-108) mmol/L Carbon Dioxide 28 (22-29) mmol/L Anion Gap 17 (12-20) BUN 15 D (9-16) mg/dL Creatinine 0.86 (0.5-1.4) mg/dL Estim Creat Clear Calc 51.7 Estimated GFR > 60 Random Glucose 93 (60-115) mg/dL Calcium 10.2 D (8.4-10.2) mg/dL Magnesium 2.0 (1.6-2.6) mg/dL Total Bilirubin 0.7 (0.0-1.0) mg/dL Direct Bilirubin 0.3 (0.0-0.5) mg/dL AST 52 H (5-31) U/L ALT 19 (0-31) U/L Alkaline Phosphatase 125 H (39-117) U/L Total Protein 7.4 (6.5-8.0) g/dL Albumin 4.8 (3.5-5.0) g/dL Discharge Plan Discharge Clinical Impression: Vomiting Patient Disposition: Home, Self-Care Instructions: Acute Nausea and Vomiting (ED) Additional Instructions: Follow-up with GI You may increase your dose of carafate to three times daily Limit coca-cola as discussed See list for therapy Prescriptions: New lorazepam 0.5 mg tablet 0.5 mg PO BEDTIME PRN (Reason: anxiety) Qty: 8 0RF No Action ondansetron 4 mg tablet,disintegrating 4 mg PO Q8H PRN (Reason: nausea and vomiting) 1 Days Qty: 4 0RF propranolol 160 mg capsule,extended release 24 hr 160 mg PO DAILY sumatriptan succinate 50 mg tablet 50 mg PO BID PRN (Reason: Migraine Headache) cyanocobalamin (vitamin B-12) 1,000 mcg tablet 1,000 mcg PO DAILY kdgxghvsdz-xzjtwasbjjltm-fxeg 50-325-40 mg tablet 1 tab PO DAILY PRN (Reason: Migraine Headache) cholecalciferol (vitamin D3) 50 mcg (2,000 unit) tablet 50 mcg PO DAILY duloxetine 60 mg capsule,delayed release(DR/EC) 60 mg PO DAILY multivitamin Tablet 1 tab PO DAILY pantoprazole 40 mg tablet,delayed release (DR/EC) 40 mg PO DAILY albuterol sulfate 2.5 mg /3 mL (0.083 %) solution for nebulization 2.5 mg inhalation DAILY erenumab-aooe 70 mg/mL auto-injector 70 mg subcut QMONTH nystatin 100,000 unit/mL suspension 100,000 unit PO DAILY PRN atorvastatin 80 mg tablet 80 mg PO DAILY albuterol sulfate 90 mcg/actuation HFA aerosol inhaler 2 inh inhalation Q6H PRN (Reason: shortness of breath or wheezing) 30 Days Qty: 18 12RF Referrals: Yimi Norris DO [Primary Care Provider] - 5 days Yimi Silva [Physician] - 5 days Discharge Date/Time: 05/05/22 14:22
[2022-05-05] MEDS: 0.9 % Sodium Chloride 1,000 ML 999 ML IV (11:50)
[2022-05-05 11:57] LABS: MANUAL DIFF FLAG NO
[2022-05-05 11:59] LABS: Basophils Percent Auto 0.4 % (0-2); Eosinophils Percent Auto 0.6 % (0-4); Hematocrit 45.2 % (37.0-47.0); Hemoglobin 14.7 g/dl (12.0-16.0); Imm Gran Abs Auto 0.01 X10*3/uL (0.00-0.03); Imm Gran Pct Auto 0.2 % (0.0-0.4); Lymphocytes Absolute Auto 1.6 X10*3/uL (1.2-4.9); Lymphocytes Percent Auto 31.2 % (20-40); Mean Corpuscular HGB Conc 32.5 g/dl (31.0-35.0); Mean Corpuscular Hemoglobin 29.3 pg (27.0-33.0); Mean Platelet Volume 11.4 fL (9.4-12.3); Monocytes Absolute Auto 0.5 X10*3/uL (0.1-1.2); Monocytes Percent Auto 10.3 % (2-11); Neutrophils Percent Auto 57.3 % (45-73); Platelet Count 242 X10*3/uL (160-400); Red Blood Count 5.02 X10*6/uL (4.20-5.50); Red Cell Distribution Width 13.1 % (11.0-16.0); White Blood Count 5.2 X10*3/uL (4.8-10.8)
[2022-05-05 12:17] LABS: Alanine Aminotransferase 19 U/L (0-31); Albumin Level 4.8 g/dL (3.5-5.0); Alkaline Phosphatase 125 U/L (39-117); Anion Gap 17 (12-20); Aspartate Amino Transferase 52 U/L (5-31); Bilirubin Direct 0.3 mg/dL (0.0-0.5); Bilirubin Total 0.7 mg/dL (0.0-1.0); Blood Urea Nitrogen 15 mg/dL (9-16); Calcium 10.2 mg/dL (8.4-10.2); Carbon Dioxide 28 mmol/L (22-29); Chloride 100 mmol/L (96-108); Creatinine Clr Calc Pharmacy 51.7; Estimated Glomerular Filt Rate > 60; Glucose Random 93 mg/dL (60-115); Potassium 3.9 mmol/L (3.3-5.1); Sodium 141 mmol/L (135-145); Total Protein 7.4 g/dL (6.5-8.0)
[2022-05-05 12:18] VITALS: BP 155/89; PULSE 84; RESP 18; TEMP 36.7; O2SAT 98
--- NOTE | 2022-05-05 13:45 | MHC.CARE ---
CARE Team provided resources for therapy.
[2022-05-05 13:51] VITALS: BP 153/86; PULSE 85; RESP 14; TEMP 36.6; O2SAT 96
[2022-05-05 14:00] VITALS: BP 135/77; PULSE 74; RESP 16; TEMP 36.8; O2SAT 97
== END 2022-05-05 14:22 | disposition home or self-care (01) ==
PROVIDERS: Nurse Practitioner Family; Emergency Provider Emergency Medicine; PCP Internal Medicine
DX: R11.10 Vomiting, unspecified (principal)
CPT/HCPCS: 36415; 80048; 80076; 83735; 85025; 96360; 96361; 99284

== ENCOUNTER 2023-01-02 10:31 | Outpatient (REF) | payer OTHER, SELFPAY ==
--- NOTE | ~2023-01-02 | CT_ITS ---
EXAMINATION: CT CHEST WITHOUT CONTRAST CLINICAL INFORMATION: Pulmonary nodule COMPARISON: Previous CTs, most recent, 11/14/2021 TECHNIQUE: Multidetector volumetric CT imaging of the chest was done. Axial MIP volume rendering provided. Sagittal and coronal reformatted images were obtained. This CT examination was performed using dose optimization techniques as appropriate, variously including the following: *Automated exposure control *Adjustment of mA and/or kV according to patient size (this includes techniques or standardized protocols for targeted exams where dose is matched to indication/reason for exam; i.e. extremities or head) *Use of iterative reconstruction technique DLP: 142.78 mGy-cm FINDINGS: TALENT MANAGEMENT MANAGER: Hyperinflation. Degenerative changes and scoliosis. LUNGS: Biapical pleural thickening again identified. Centrilobular emphysema with flattening of the hemidiaphragms. Mild bronchial wall thickening. Scattered atelectasis. NODULES: RUL: Stable 2 mm, 6:165, likely endobronchial. RML: Unchanged 3 mm, 6:337, possible new 2 mm likely intraluminal, 6:262 RLL: Stable 3 mm, 6:423, 4 mm, 6:424 CHRIS: Stable 3 mm, 6:160. Lingula: Unchanged 2 mm, 6:388 LLL: Stable 6 mm, 6:400 PLEURA: Stable right major fissural thickening. MEDIASTINUM: Unremarkable thyroid. Multiple mediastinal lymph nodes again identified, nonpathologic by size criteria. HEART AND GREAT VESSELS: Nonenlarged heart. No pericardial effusion. Degree of coronary calcifications: None. Nonaneurysmal aorta. Nonenlarged pulmonary arteries. AXILLA: No lymphadenopathy. UPPER ABDOMEN: Unchanged subcapsular hepatic cyst. OSSEOUS STRUCTURES: Thoracolumbar scoliosis. CT/CT chest wo IV con IMPRESSION: Stable lung nodules, largest measuring 6 mm in the left lower lobe. Question new 2 mm right middle lobe endobronchial nodule.
== END 2023-01-02 10:32 | disposition home or self-care (01) ==
LOC: HO.CT 10:31
PROVIDERS: Visit Provider Hospitalist
DX: R91.1 Solitary pulmonary nodule (principal)
CPT/HCPCS: 71250

== ENCOUNTER 2023-01-06 10:43 | Outpatient (REF) | payer OTHER, SELFPAY ==
[2023-01-06 11:23] LABS: MANUAL DIFF FLAG NO
[2023-01-06 14:01] LABS: Basophils Absolute Auto 0.1 X10*3/uL (0.0-0.2); Basophils Percent Auto 1.2 % (0-2); Eosinophils Absolute Auto 0.2 X10*3/uL (0.0-0.4); Eosinophils Percent Auto 3.9 % (0-4); Hematocrit 39.4 % (37.0-47.0); Hemoglobin 12.4 g/dl (12.0-16.0); Imm Gran Abs Auto 0.01 X10*3/uL (0.00-0.03); Imm Gran Pct Auto 0.2 % (0.0-0.4); Lymphocytes Absolute Auto 1.6 X10*3/uL (1.2-4.9); Lymphocytes Percent Auto 26.6 % (20-40); Mean Corpuscular HGB Conc 31.5 g/dl (31.0-35.0); Mean Corpuscular Hemoglobin 29.3 pg (27.0-33.0); Mean Corpuscular Volume 93.1 fL (80.0-98.0); Mean Platelet Volume 12.2 fL (9.4-12.3); Monocytes Absolute Auto 0.5 X10*3/uL (0.1-1.2); Monocytes Percent Auto 7.7 % (2-11); Neutrophils Absolute Auto 3.6 x10*3/uL (2.0-8.3); Neutrophils Percent Auto 60.4 % (45-73); Platelet Count 225 X10*3/uL (160-400); Red Blood Count 4.23 X10*6/uL (4.20-5.50); Red Cell Distribution Width 12.9 % (11.0-16.0); White Blood Count 5.9 X10*3/uL (4.8-10.8)
[2023-01-06 14:19] LABS: Appearance Urine Clear; Color Urine Yellow; Glucose Urine UA Negative (Negative); Leukocyte Esterase Urine Negative (Negative); Nitrite Urine Negative (Negative); PH 5.5 (5.0-9.0); Specific Gravity - Urine 1.015 (1.005-1.025); Urine Blood Negative (Negative); Urine Ketones Negative (Negative); Urine Protein Trace mg/dL (Neg-Trace)
[2023-01-06 14:22] LABS: Bacteria Urine None Seen (None Seen); Hyaline Casts Urine 0-2 /LPF (0-2); RBC Urine 0-2 /HPF (0-2); Squamous Epithelial Cell Urine 0-2 /HPF (0-2); WBC Urine 0-5 /HPF (0-5)
[2023-01-06 17:36] LABS: Alanine Aminotransferase 36 U/L (0-31); Albumin Level 3.8 g/dL (3.5-5.0); Alkaline Phosphatase 93 U/L (39-117); Anion Gap 13 (12-20); Aspartate Amino Transferase 90 U/L (5-31); Bilirubin Total 0.5 mg/dL (0.0-1.0); Blood Urea Nitrogen 5 mg/dL (9-16); Calcium 9.2 mg/dL (8.4-10.2); Carbon Dioxide 29 mmol/L (22-29); Chloride 106 mmol/L (96-108); Cholesterol 152 mg/dL; Estimated Glomerular Filt Rate > 60; Glucose Fasting 81 mg/dL (60-99); HDL Cholesterol 46 mg/dL; LDL Cholesterol Calculated 91 mg/dl; Potassium 3.3 mmol/L (3.3-5.1); Sodium 145 mmol/L (135-145); Total Protein 6.2 g/dL (6.5-8.0); Triglycerides 77 mg/dL
[2023-01-06 17:41] LABS: Vitamin D 25-OH Total 63.6 ng/mL (>30)
[2023-01-06 17:57] LABS: Folate 6.9 ng/mL (> or = 4.0); Vitamin B12 1702 pg/mL (200-900)
== END 2023-01-06 10:44 | disposition home or self-care (01) ==
LOC: HO.LAB 10:43
PROVIDERS: PCP Internal Medicine; Visit Provider Internal Medicine
DX: Z00.00 Encounter for general adult medical examination without abnormal findings (principal); E78.00 Pure hypercholesterolemia, unspecified; E55.9 Vitamin D deficiency, unspecified; G43.009 Migraine without aura, not intractable, without status migrainosus; K21.9 Gastro-esophageal reflux disease without esophagitis
CPT/HCPCS: 36415; 80053; 80061; 81001; 82306; 82607; 82746; 84443; 85025

== ENCOUNTER 2023-01-17 09:48 | Outpatient (REF) | payer OTHER, SELFPAY ==
[2023-01-17 11:33] LABS: Cholesterol 141 mg/dL; HDL Cholesterol 46 mg/dL; LDL Cholesterol Calculated 80 mg/dl; Triglycerides 77 mg/dL
[2023-01-17 16:34] LABS: Alanine Aminotransferase 25 U/L (0-31); Albumin Level 3.8 g/dL (3.5-5.0); Alkaline Phosphatase 96 U/L (39-117); Aspartate Amino Transferase 67 U/L (5-31); Bilirubin Direct 0.2 mg/dL (0.0-0.5); Bilirubin Total 0.5 mg/dL (0.0-1.0); Total Protein 6.2 g/dL (6.5-8.0)
== END 2023-01-17 09:49 | disposition home or self-care (01) ==
LOC: HO.LAB 09:48
PROVIDERS: PCP Internal Medicine; Visit Provider Internal Medicine
DX: R79.89 Other specified abnormal findings of blood chemistry (principal)
CPT/HCPCS: 36415; 80061; 80076

== ENCOUNTER 2024-01-06 08:24 | Outpatient (REF) | payer OTHER, SELFPAY ==
[2024-01-06 08:41] LABS: MANUAL DIFF FLAG NO
[2024-01-06 09:34] LABS: Basophils Absolute Auto 0.1 X10*3/uL (0.0-0.2); Basophils Percent Auto 1.3 % (0-2); Eosinophils Absolute Auto 0.3 X10*3/uL (0.0-0.4); Eosinophils Percent Auto 5.4 % (0-4); Hematocrit 39.9 % (37.0-47.0); Hemoglobin 13.1 g/dl (12.0-16.0); Imm Gran Abs Auto 0.02 X10*3/uL (0.00-0.03); Imm Gran Pct Auto 0.3 % (0.0-0.4); Lymphocytes Absolute Auto 1.7 X10*3/uL (1.2-4.9); Lymphocytes Percent Auto 28.7 % (20-40); Mean Corpuscular HGB Conc 32.8 g/dl (31.0-35.0); Mean Corpuscular Hemoglobin 30.3 pg (27.0-33.0); Mean Corpuscular Volume 92.1 fL (80.0-98.0); Mean Platelet Volume 11.5 fL (9.4-12.3); Monocytes Absolute Auto 0.6 X10*3/uL (0.1-1.2); Monocytes Percent Auto 10.1 % (2-11); Neutrophils Absolute Auto 3.2 x10*3/uL (2.0-8.3); Neutrophils Percent Auto 54.2 % (45-73); Platelet Count 281 X10*3/uL (160-400); Red Blood Count 4.33 X10*6/uL (4.20-5.50); Red Cell Distribution Width 13.1 % (11.0-16.0); White Blood Count 5.9 X10*3/uL (4.8-10.8)
[2024-01-06 10:03] LABS: Alanine Aminotransferase 17 U/L (0-31); Albumin Level 4.2 g/dL (3.5-5.0); Alkaline Phosphatase 127 U/L (39-117); Anion Gap 13 (12-20); Aspartate Amino Transferase 31 U/L (5-31); Bilirubin Total 0.5 mg/dL (0.0-1.0); Blood Urea Nitrogen 6 mg/dL (9-16); Calcium 9.9 mg/dL (8.4-10.2); Carbon Dioxide 29 mmol/L (22-29); Chloride 108 mmol/L (96-108); Cholesterol 160 mg/dL (<200); Estimated Glomerular Filt Rate > 60; Glucose Fasting 118 mg/dL (60-99); HDL Cholesterol 42 mg/dL (>40); LDL Cholesterol Calculated 102 mg/dL (<100); Potassium 4.5 mmol/L (3.3-5.1); Sodium 145 mmol/L (135-145); Total Protein 7.2 g/dL (6.5-8.0); Triglycerides 83 mg/dL (<150)
[2024-01-06 10:21] LABS: Thyroid Stimulating Hormone 1.57 uIU/mL (0.32-4.0); Vitamin D 25-OH Total 78.6 ng/mL (>30)
== END 2024-01-06 08:25 | disposition home or self-care (01) ==
LOC: HO.LAB 08:24
PROVIDERS: PCP Internal Medicine; Visit Provider Internal Medicine
DX: G43.009 Migraine without aura, not intractable, without status migrainosus (principal); E78.00 Pure hypercholesterolemia, unspecified; K21.9 Gastro-esophageal reflux disease without esophagitis; E55.9 Vitamin D deficiency, unspecified; F32.9 Major depressive disorder, single episode, unspecified; F41.9 Anxiety disorder, unspecified
CPT/HCPCS: 36415; 80053; 80061; 82306; 84443; 85025

== ENCOUNTER 2024-01-18 10:49 | Emergency (ER) | payer OTHER, SELFPAY ==
--- NOTE | ~2024-01-18 | CT_ITS ---
EXAMINATION: CT ABDOMEN AND PELVIS WITHOUT CONTRAST CLINICAL INFORMATION: Suprapubic discomfort COMPARISON: CT abdomen and pelvis 10/03/2021 TECHNIQUE: Multidetector volumetric imaging was performed from the superior aspect of the liver through the pubic symphysis. Sagittal and coronal reformatted images were obtained on the technologist's workstation. This CT examination was performed using dose optimization techniques as appropriate, variously including the following: *Automated exposure control *Adjustment of mA and/or kV according to patient size (this includes techniques or standardized protocols for targeted exams where dose is matched to indication/reason for exam; i.e. extremities or head) *Use of iterative reconstruction technique DLP: 241 mGy-cm FINDINGS: LUNG BASES: Some tree-in-bud opacities are seen at the lung bases along with some larger nodules the largest measuring 7 mm at the left lung base laterally (4:42). Similar findings were present previously although more extensive and improved. LIVER, GALLBLADDER, AND BILIARY TREE: The liver is normal in size, shape, and attenuation. A benign cyst is present in the left lobe of the liver. No concerning solid focal hepatic lesion or biliary ductal dilatation is present. The gallbladder is unremarkable with no evidence of radiopaque gallstones, gallbladder wall thickening, or obvious pericholecystic inflammatory changes. PANCREAS: Unremarkable. SPLEEN: Unremarkable. ADRENAL GLANDS: Unremarkable. KIDNEYS AND URETERS: The kidneys are normal in size, shape, and attenuation. There is a tiny punctate bilateral nonobstructing renal calculi present on the right (4:216). No hydronephrosis, hydroureter, or ureteral calculi seen. No perinephric stranding. BLADDER: Unremarkable. GASTROINTESTINAL TRACT: The small and large bowel are unremarkable. The appendix is not seen but there is no evidence of appendicitis evidence of appendicitis. ABDOMINAL WALL: No significant hernia is appreciated. LYMPH NODES: No retroperitoneal lymphadenopathy. VASCULAR: Unremarkable. PELVIC VISCERA: The retroverted uterus and adnexa are unremarkable. OSSEOUS STRUCTURES: Degenerative changes are present in the spine along with scoliosis. CT/CT abdomen pelvis wo IV con IMPRESSION: 1. A cause for the patient's suprapubic discomfort has not been found. 2. Tree-in-bud opacities at the lung bases with some larger nodules the largest measuring 7 mm at the left lung base laterally. Similar findings were present previously although more extensive and improved on the current exam. 3. Tiny punctate nonobstructing right renal calculi. 4. Degenerative changes in the spine with scoliosis. Fleischner guidelines were followed.
[2024-01-18 11:00] VITALS: BP 143/63; BP 146/76; PULSE 60; PULSE 69; RESP 16; TEMP 35.9; O2SAT 100; O2SAT 98; BMI 17.9
[2024-01-18 11:06] VITALS: BP 143/63; PULSE 69; RESP 14; TEMP 36.4; O2SAT 100
--- NOTE | 2024-01-18 11:10 | ED.ABDPAIN ---
HPI - Abdominal Pain General Chief Complaint: Abdominal Pain Stated Complaint: ab pain, cramping x1 hour Time Seen by Provider: 01/18/24 10:57 History of Present Illness HPI narrative: 58 year old F with pmh of femoral hernia, left inguinal hernia, pulmonary nodule, BRCA1+, asthma presenting with c/o abdominal pain (03/24) this morning. Patient did not take any medication for symptoms this morning, reports pain was in the suprapubic region. She states pain is now a 0/10. Patient admitted to vomiting fluid and passing loose stool. She has not ate anything, but did drink a soda this morning. She denies any chest pain, sob, urinary symptoms or trauma to the area. Related Data Home Medications ?Medication ?Instructions ?Recorded ?Confirmed albuterol sulfate 2.5 mg/3 mL 2.5 mg inhalation DAILY 05/17/20 01/27/23 (0.083 %) solution for nebulization kahoprjtnu-sswhelondvrkv-cptiftxk 1 tab PO DAILY PRN Migraine 05/17/20 01/27/23 50 mg-325 mg-40 mg tablet Headache cholecalciferol (vitamin D3) 50 50 mcg PO DAILY 05/17/20 01/27/23 mcg (2,000 unit) tablet cyanocobalamin (vitamin B-12) 1,000 mcg PO DAILY 05/17/20 01/27/23 1,000 mcg tablet duloxetine 60 mg capsule,delayed 60 mg PO DAILY 05/17/20 01/27/23 release multivitamin 1 tab PO DAILY 05/17/20 01/27/23 pantoprazole 40 mg tablet,delayed 40 mg PO DAILY 05/17/20 01/27/23 release propranolol 160 mg capsule,24 160 mg PO DAILY 05/17/20 01/27/23 hr,extended release sumatriptan succinate 50 mg tablet 50 mg PO BID PRN Migraine Headache 05/17/20 01/27/23 erenumab-aooe 70 mg/mL 70 mg subcut QMONTH 10/12/20 01/27/23 subcutaneous auto-injector atorvastatin 80 mg tablet 80 mg PO DAILY 10/15/21 01/27/23 Previous Rx's ?Medication ?Instructions ?Recorded ondansetron 4 mg disintegrating 4 mg PO Q8H PRN nausea and 11/28/21 tablet vomiting 1 day #4 tabs lorazepam 0.5 mg tablet 0.5 mg PO BEDTIME PRN anxiety #8 05/05/22 tabs budesonide-formoterol HFA 160 2 puff inhalation BID 30 days 10/09/22 mcg-4.5 mcg/actuation aerosol #10.2 grams inhaler (Symbicort) aluminum-mag hydroxide-simethicone 5 ml PO 5XD PRN dyspepsia #355 mL 01/18/24 200 mg-200 mg-20 mg/5 mL oral susp (Maalox Advanced) Allergies Allergy/AdvReac Type Severity Reaction Status Date / Time bee pollen [BEE STINGS] Allergy Severe ANAPHYLAXIS Verified 01/18/24 11:05 meperidine [From DEMEROL] Allergy Mild VOMITING Verified 01/18/24 11:05 oxycodone [OXYCODONE] Allergy Mild VOMITING Verified 01/18/24 11:05 Review of Systems Review of Systems Yes all other systems are reviewed and are negative PMFSH Past Medical History Attestation statement: The following information was validated with the patient. Medical History Asthma GERD (gastroesophageal reflux disease) History of 2019 novel coronavirus disease (COVID-19) Hx of migraines Pulmonary nodule Restless leg syndrome Surgical History History of esophagogastroduodenoscopy (EGD) History of femoral hernia repair (10/21/21) History of hysterectomy (2014) History of mastectomy (2014) Hx of colonoscopy Hx of tubal ligation Family History Family History Sister Breast cancer Family/Other Lung cancer Breast cancer Family/Other Breast cancer Family/Other Breast cancer Paternal Aunt Breast cancer Ovarian cancer Mother Stroke Heart disease Asthma Emphysema lung COPD (chronic obstructive pulmonary disease) Diabetes Dementia Father Heart disease Social History Social History Household Members: Spouse and Children Housing: House 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 Do you presently have visiting nurse or other home services: No Alcohol intake: former Patient Tobacco Use Status: Former Tobacco user Smoked in Last 30 Days: No Use of substances other than those prescribed or required for medical reasons: No Advance Directives: No Advance Directives Information Provided: Yes Do you have a plan to hurt others: No Plan Patient : No service: No Current occupational status: employed Physical Exam ED Vital Signs: Vital Signs - 24 hr 01/18/24 11:00 01/18/24 11:06 01/18/24 13:15 Temperature 96.7 F L 97.6 F Pulse Rate 69 69 57 Respiratory Rate 16 14 14 Blood Pressure 143/63 H 143/63 H 114/78 Pulse Oximetry 100 100 98 Oxygen Delivery Method Room Air Room Air Room Air 01/18/24 15:03 Temperature 98.0 F Pulse Rate 58 Respiratory Rate 16 Blood Pressure 112/65 Pulse Oximetry 96 Oxygen Delivery Method Room Air BMI result Body Mass Index 17.9 vss Appearance: Alert.? Oriented X3.? No acute distress.? Head: Normocephalic, atraumatic, no step-offs or deformities Eyes: Pupils equal, round and reactive to light.? ENT: Pharynx normal.? Neck: Normal inspection.? Neck supple.? CVS: Normal heart rate and rhythm.? Pulses normal.? Respiratory: No respiratory distress.? Breath sounds normal.? Abdomen: Soft and nontender.? Skin: Skin warm and dry.? Normal skin color.? Normal skin turgor.? Extremities: No lower extremity edema.? No calf ttp. 5/5 strength to bilateral upper and lower extremities Neuro: Oriented X 3.? No motor deficit.? No sensory deficit. CN 2-12 intact Course Reevaluation(s) Reevaluation #1: CBC unremarkable. Chemistry no acute findings needing intervention. Normal lipase. CT abdomen and pelvis a cause for patient's suprapubic discomfort has not been found. Tree-in-bud opacities in the lung bases with some larger nodules. Tiny punctate nonobstructing right renal calculi. Degenerative changes in the spine with scoliosis. Patient to be discharged home with Maalox. Educated patient on diagnosis and treatment plan, answered all question, patient verbalizes understanding. At this time patient will be discharged home, advised to return with new or worsening symptoms. Educated on worrisome signs and symptoms and when to return. At this time I feel comfortable discharge home. Time: 15:54 Medical Decision Making Medical Decision Making MDM Narrative: 58 year old F presenting with c/o abdominal pain (03/24) this morning now resolved . Patient admitted to vomiting and passing loose stool. Physical examination revealed aaox3, no acute abdominal pain upon palpation, normal active bowel sounds. Hx and pe consistent with gas pain vs gastritis vs diverticulitis vs ibd vs ibs. Unlikely appendicitis, acute abdomen, obstruction, pancreatitis,cholecysittis. Pending labs, urine Differential Diagnosis Differential Diagnoses: The differential diagnosis associated with the presentation includes Hx and pe consistent with gas pain vs gastritis vs diverticulitis vs ibd vs ibs. Unlikely appendicitis, acute abdomen, obstruction, pancreatitis,cholecysittis. Admission/Observation Consideration of admission/observation: Escalation of care including admission/observation considered unlikley Lab Data MDM Lab Attestation statement: I reviewed the patient's lab results. 01/18/24 11:34 01/18/24 11:34 Labs: Lab Results 01/18/24 Range/Units 11:34 WBC 8.1 (4.8-10.8) X10*3/uL RBC 4.42 (4.20-5.50) X10*6/uL Hgb 13.0 (12.0-16.0) g/dl Hct 40.3 (37.0-47.0) % MCV 91.2 (80.0-98.0) fL MCH 29.4 (27.0-33.0) pg MCHC 32.3 (31.0-35.0) g/dl RDW 13.2 (11.0-16.0) % Plt Count 262 (160-400) X10*3/uL MPV 11.5 (9.4-12.3) fL Immature Gran % (Auto) 0.4 (0.0-0.4) % Neut % (Auto) 69.6 (45-73) % Lymph % (Auto) 18.6 L (20-40) % [place]ilion % (Auto) 7.3 (2-11) % Eos % (Auto) 3.0 (0-4) % Baso % (Auto) 1.1 (0-2) % Lymph # (Auto) 1.5 (1.2-4.9) X10*3/uL [place]ilion # (Auto) 0.6 (0.1-1.2) X10*3/uL Eos # (Auto) 0.2 (0.0-0.4) X10*3/uL Baso # (Auto) 0.1 (0.0-0.2) X10*3/uL Abs Immat Gran (auto) 0.03 (0.00-0.03) X10*3/uL Absolute Neuts (auto) 5.7 (2.0-8.3) x10*3/uL Absolute Nucleated RBC 0.000 (0.0-0.012) X10*3/uL Nucleated RBC % (auto) 0.0 (0.0-0.2) /100WBC Sodium 144 (135-145) mmol/L Potassium 4.3 (3.3-5.1) mmol/L Chloride 108 (96-108) mmol/L Carbon Dioxide 30 H (22-29) mmol/L Anion Gap 10 L (12-20) BUN 8 L (9-16) mg/dL Creatinine 0.92 (0.5-1.4) mg/dL Estim Creat Clear Calc 47.6 Estimated GFR > 60 Random Glucose 101 (60-115) mg/dL Calcium 10.0 (8.4-10.2) mg/dL Magnesium 2.1 (1.6-2.6) mg/dL Total Bilirubin 0.5 (0.0-1.0) mg/dL AST 31 (5-31) U/L ALT 19 (0-31) U/L Alkaline Phosphatase 134 H (39-117) U/L Total Protein 7.3 (6.5-8.0) g/dL Albumin 4.2 (3.5-5.0) g/dL Lipase 19 (8-78) U/L Independent Interpretation I performed an independent interpretation of an: CT Scan Radiology Impression Discussion of test interpretation with radiology: I have reviewed the radiologist's reading. External Record Review External record reviewed: Office record, Outpatient record, Prior outpatient labs and Prior outpatient radiology Medications Administered Discontinued Medications Generic Name Dose Route Start Last Admin Trade Name Freq PRN Reason Stop Dose Admin Sodium Chloride 1,000 mls @ 999 mls/hr 01/18/24 12:15 01/18/24 13:15 Ns IV 01/18/24 13:15 Infused .Q1H1M [facility] Infusion Discharge Plan Discharge Clinical Impression: Abdominal pain, Kidney stones Patient Disposition: Home, Self-Care Instructions: Abdominal Pain (ED) Additional Instructions: Take your medications as prescribed. If you were prescribed antibiotics today, it is important that you take your medication to their entirety, do not skip any doses, do not finish them early. Follow-up with your primary care provider this week. Return to the emergency department with new or worsening symptoms. Such as fevers, chills, chest pain, shortness of breath, nausea, vomiting, dizziness, headache, vision changes, lethargy In case of emergency call 911 CT/CT abdomen pelvis wo IV con IMPRESSION: 1. A cause for the patient's suprapubic discomfort has not been found. 2. Tree-in-bud opacities at the lung bases with some larger nodules the largest measuring 7 mm at the left lung base laterally. Similar findings were present previously although more extensive and improved on the current exam. 3. Tiny punctate nonobstructing right renal calculi. 4. Degenerative changes in the spine with scoliosis. Prescriptions: New alum-mag hydroxide-simeth [Maalox Advanced] 200-200-20 mg/5 mL suspension 5 ml PO 5XD PRN (Reason: dyspepsia) Qty: 355 0RF Rx Instructions: administer between meals and at bedtime No Action ondansetron 4 mg tablet,disintegrating 4 mg PO Q8H PRN (Reason: nausea and vomiting) 1 Days Qty: 4 0RF budesonide-formoterol [Symbicort] 160-4.5 mcg/actuation HFA aerosol inhaler 2 puff inhalation BID 30 Days Qty: 10.2 11RF lorazepam 0.5 mg tablet 0.5 mg PO BEDTIME PRN (Reason: anxiety) Qty: 8 0RF propranolol 160 mg capsule,extended release 24 hr 160 mg PO DAILY sumatriptan succinate 50 mg tablet 50 mg PO BID PRN (Reason: Migraine Headache) cyanocobalamin (vitamin B-12) 1,000 mcg tablet 1,000 mcg PO DAILY bqbhxhleti-ifzkjwxexrglx-xhkh 50-325-40 mg tablet 1 tab PO DAILY PRN (Reason: Migraine Headache) cholecalciferol (vitamin D3) 50 mcg (2,000 unit) tablet 50 mcg PO DAILY duloxetine 60 mg capsule,delayed release(DR/EC) 60 mg PO DAILY multivitamin Tablet 1 tab PO DAILY pantoprazole 40 mg tablet,delayed release (DR/EC) 40 mg PO DAILY albuterol sulfate 2.5 mg /3 mL (0.083 %) solution for nebulization 2.5 mg inhalation DAILY erenumab-aooe 70 mg/mL auto-injector 70 mg subcut QMONTH atorvastatin 80 mg tablet 80 mg PO DAILY Referrals: Yimi Norris DO [Primary Care Provider] - 2 days Print Language: Citizen [place]
[2024-01-18 11:41] LABS: MANUAL DIFF FLAG NO
[2024-01-18 11:44] LABS: Basophils Absolute Auto 0.1 X10*3/uL (0.0-0.2); Basophils Percent Auto 1.1 % (0-2); Eosinophils Absolute Auto 0.2 X10*3/uL (0.0-0.4); Hematocrit 40.3 % (37.0-47.0); Imm Gran Abs Auto 0.03 X10*3/uL (0.00-0.03); Imm Gran Pct Auto 0.4 % (0.0-0.4); Lymphocytes Absolute Auto 1.5 X10*3/uL (1.2-4.9); Lymphocytes Percent Auto 18.6 % (20-40); Mean Corpuscular HGB Conc 32.3 g/dl (31.0-35.0); Mean Corpuscular Hemoglobin 29.4 pg (27.0-33.0); Mean Corpuscular Volume 91.2 fL (80.0-98.0); Mean Platelet Volume 11.5 fL (9.4-12.3); Monocytes Absolute Auto 0.6 X10*3/uL (0.1-1.2); Monocytes Percent Auto 7.3 % (2-11); Neutrophils Absolute Auto 5.7 x10*3/uL (2.0-8.3); Neutrophils Percent Auto 69.6 % (45-73); Platelet Count 262 X10*3/uL (160-400); Red Blood Count 4.42 X10*6/uL (4.20-5.50); Red Cell Distribution Width 13.2 % (11.0-16.0); White Blood Count 8.1 X10*3/uL (4.8-10.8)
--- NOTE | 2024-01-18 11:46 | ECG_ITS ---
Test Reason : SYNCOPE Blood Pressure : / mmHG Vent. Rate : 066 BPM Atrial Rate : 066 BPM P-R Int : 152 ms QRS Dur : 082 ms QT Int : 424 ms P-R-T Axes : 057 071 065 degrees QTc Int : 444 ms Normal sinus rhythm Normal ECG When compared with ECG of 17-JUN-2019 16:35, No significant change was found Referred By: Monique Mace Electronically Signed By:KALIN VALDIVIA MD
[2024-01-18 12:04] LABS: Alanine Aminotransferase 19 U/L (0-31); Albumin Level 4.2 g/dL (3.5-5.0); Alkaline Phosphatase 134 U/L (39-117); Anion Gap 10 (12-20); Aspartate Amino Transferase 31 U/L (5-31); Bilirubin Total 0.5 mg/dL (0.0-1.0); Blood Urea Nitrogen 8 mg/dL (9-16); Carbon Dioxide 30 mmol/L (22-29); Chloride 108 mmol/L (96-108); Creatinine Clr Calc Pharmacy 47.6; Estimated Glomerular Filt Rate > 60; Glucose Random 101 mg/dL (60-115); Lipase 19 U/L (8-78); Magnesium 2.1 mg/dL (1.6-2.6); Potassium 4.3 mmol/L (3.3-5.1); Sodium 144 mmol/L (135-145); Total Protein 7.3 g/dL (6.5-8.0)
[2024-01-18] MEDS: 0.9 % Sodium Chloride 1,000 ML 999 ML IV (12:33)
[2024-01-18 13:15] VITALS: BP 114/78; PULSE 57; RESP 14; O2SAT 98
[2024-01-18 15:03] VITALS: BP 112/65; PULSE 58; RESP 16; TEMP 36.7; O2SAT 96
[2024-01-18 16:22] VITALS: BP 156/87; PULSE 77; RESP 14; TEMP 37; O2SAT 99
== END 2024-01-18 16:23 | disposition home or self-care (01) ==
PROVIDERS: Physician Assistant; Emergency Provider Emergency Medicine; PCP Internal Medicine
DX: N20.0 Calculus of kidney (principal); R55 Syncope and collapse; R10.30 Lower abdominal pain, unspecified; R11.0 Nausea; Z79.899 Other long term (current) drug therapy; Z87.891 Personal history of nicotine dependence
CPT/HCPCS: 36415; 74176; 80053; 83690; 83735; 85025; 93005; 96360; 99284

== ENCOUNTER → 2024-01-18 11:46 | Outpatient (BNV) | payer OTHER, SELFPAY | PROVIDERS: Emergency Provider Emergency Medicine; PCP Internal Medicine; Visit Provider Internal Medicine Cardiovascular Disease | DX: R55 Syncope and collapse (principal) | CPT/HCPCS: 93010 ==

== ENCOUNTER 2024-10-05 13:36 | Outpatient (AMB) | payer OTHER, SELFPAY ==
--- NOTE | 2024-10-05 13:42 | A.OFFPC_ITS ---
Vital Signs 10/05/24 13:44 Height 5 ft 3 in Weight 95 lb BMI 16.8 BP 122/72 Respiration 16 Pulse 74 Pulse Source Pulse Oximeter Temp 97.6 F Temp Source Temporal Artery Scan Pulse Oximetry (%) 98 Oxygen Delivery Method Room Air Intake Visit Reasons: 6 month follow up Professional Development Manager Required: No Accompanied by: Self / Same As Patient Allergies bee pollen [BEE STINGS] Allergy (Severe, Verified 10/05/24 14:06) ANAPHYLAXIS meperidine [From DEMEROL] Allergy (Mild, Verified 10/05/24 14:06) VOMITING oxycodone [OXYCODONE] Allergy (Mild, Verified 10/05/24 14:06) VOMITING Medication List - Last Reconciled 10/05/24 by Jo-Ann Koch PA-C albuterol sulfate 2.5 mg inhalation DAILY atorvastatin 80 mg PO DAILY budesonide-formoterol 160-4.5 mcg/actuation (Symbicort) 2 puffs inhalation BID 30 days cholecalciferol (vitamin D3) 50 mcg PO DAILY cyanocobalamin (vitamin B-12) 1,000 mcg PO DAILY duloxetine 60 mg PO DAILY fremanezumab-vfrm (Ajovy) 225 mg (1.5 mL) subcut [id number] levalbuterol tartrate 45 mcg/actuation 1 inh inhalation Q6H PRN multivitamin 1 tab PO DAILY pantoprazole 40 mg PO DAILY propranolol ER 160 mg PO DAILY Tobacco use date assessed: 10/05/24 Dental Screening Dental Screen Date: 10/05/24 Did you have a dental visit in the last 12 months?: Yes Did you have a dental problem in the last 6 months where you did not have access to dental care?: No Was dental information given to patient?: Patient has dentist HPI 6 month follow up HPI Details The patient is a 59-year-old female presenting to establish a new primary care provider. She was a patient of Dr. Norris. Patient reports she has been having increasing shortness of breath. She experiences significant difficulty breathing and leg weakness, especially when ascending stairs. Her shortness of breath has worsened over time, related to scarring from a severe episode of COVID-19. She was diagnosed with pneumonia during the initial days of the COVID pandemic and relates this event to her current pulmonary state. Her last chest CT scan in December 2022 revealed stable lung nodules, some of which are located in the tracheal node and right middle lobe. The patient previously smoked but has attempted to quit due to increased anxiety linked to family stress. She also carries a history of anxiety and depressive disorder, exacerbated by her daughter's substance use and responsibility for her autistic grandsons. Her BRCA positive status led to a prophylactic bilateral mastectomy. She manages other chronic conditions, such as hyperlipidemia and GERD, with medications. Migraine control is maintained with Ajovy injections. She reports no current gastrointestinal or IBS symptoms but indicates improvement from past issues with dietary alterations and increased omeprazole dosage for GERD. Social History - The patient recently attempted to quit smoking but has frequently felt tempted due to stress. - She expressed significant family stres s, particularly concerning her daughter's severe drug addiction, resulting in her caring for her two grandsons. - She regularly engages with a therapist in [place]. - The patient is a caregiver and manages household responsibilities. - She does not mention specific dietary habits or exercise routines but indicates an active lifestyle based on caregiving duties. [facility] Medical History (Updated 10/05/24 @ 15:39 by Jo-Ann Koch PA-C) Underweight (BMI < 18.5) Hypertension General medical exam [place] (dyspnea on exertion) SOB (shortness of breath) Oral candidiasis Sciatica of left side Chronic low back pain Kidney stones Cervical radiculopathy BRCA positive IBS (irritable bowel syndrome) Anxiety Depression Establishing care with new doctor, encounter for Vitamin B12 deficiency Vitamin D deficiency Pure hypercholesterolemia, unspecified Restless leg syndrome Hx of migraines GERD (gastroesophageal reflux disease) History of 2019 novel coronavirus disease (COVID-19) Asthma Pulmonary nodule Surgical History History of esophagogastroduodenoscopy (EGD) (~11/29/21) Hx of colonoscopy (~11/29/21) Hx of tubal ligation History of femoral hernia repair (10/21/21) History of hysterectomy (2014) History of mastectomy (2014) Family History Sister Breast cancer Family/Other Lung cancer Breast cancer Family/Other Breast cancer Family/Other Breast cancer Paternal Aunt Breast cancer Ovarian cancer Mother Stroke Heart disease Asthma Emphysema lung COPD (chronic obstructive pulmonary disease) Diabetes Dementia Father Heart disease Social History Household Members: Spouse and Children Housing: House Are you a primary eye care professional to a significant other at home: Yes Do you presently have visiting nurse or other home services: No Alcohol intake: current Alcohol intake frequency: does not drink Patient Tobacco Use Status: Former Tobacco user service: No Current occupational status: employed Cognitive needs: No Hearing needs: No Vision needs: Yes (rx glasses) Questionnaire PHQ-9 Over the last 2 weeks, how often have you been bothered by any of the following problems? 1. Little interest or pleasure in doing things: not at all 2. Feeling down, depressed, or hopeless: not at all 3. Trouble falling or staying asleep, or sleeping too much: not at all 4. Feeling tired or having little energy: not at all 5. Poor appetite or overeating: not at all 6. Feeling bad about yourself - or that you are a failure or have let yourself or your family down: not at all 7. Trouble concentrating on things, such as reading the newspaper or watching television: not at all 8. Moving or speaking so slowly that other people could have noticed. Or the opposite - being so fidgety or restless that you have been moving around a lot more than usual: not at all 9. Thoughts that you would be better off or of hurting yourself in some way: not at all Total score: 0 Depression Screening Interpretation: Negative Depression Screening Done: Yes 81041 - PHQ-9 Billing: Yes Source: Developed by Drs. Yimi Vasquez, Karla Wilson, Florencio Zimmer and colleagues, with an educational faisal from [employer] Thrive Questionnaire Date Thrive assessed: 10/05/24 I am a: Patient What is your living situation today?: I have a steady place to live Within the past 12 months, did the food you bought not last and you didn't have the money to get more?: Never true Within the past 12 months, did you worry whether your food would run out before you got money to buy more?: Never true Do you have trouble paying for medicines?: No Do you have trouble getting transportation to medical appointments?: No Do you have trouble paying your heating and electricity bill?: No Do you have trouble taking care of your child, family member or friend?: No Do you have trouble with day-to-day activities such as bathing, preparing meals, shopping, managing finances, etc.?: No Are you currently unemployed and looking for a job?: No Are you interested in more education?: No Please select the resources that you would like help with: None THRIVE Score: 0 AUDIT C Alcohol Use Questionnaire (AUDIT-C) 1. How often do you have a drink containing alcohol?: Never 3. How often do you have six or more drinks on one occasion?: Never Total Score: 0 Score Reviewed/Action Taken: No NELIDA-7 AMB Questionnaire NELIDA-7 Date NELIDA - 7 assessed: 10/05/24 Feeling nervous, anxious, or on edge: 1 = Several days Not being able to stop or control worryin = Nearly every day Worrying too much about different things: 2 = More than half the days Trouble relaxin = Nearly every day Being so restless that it is hard to sit still: 3 = Nearly every day Becoming easily annoyed or irritable: 0 = Not at all Feeling afraid as if something awful might happen: 0 = Not at all Total NELIDA-7 score (0-4 normal; 5-9 mild; 10-14 moderate; 15-21 severe): 12 Source: Developed by Drs. Yimi Vasquez, Karla Wilson, Florencio Zimmer and colleagues, with an educational faisal from [employer] NELIDA-7 Assessment Billing NELIDA-7 Assessment Tool: NELIDA-7 Assessment 81305 Review of Systems Const Details: - Respiratory: Reports shortness of breath, especially with exertion. - Cardiovascular: Denies chest pain. - Musculoskeletal: Reports leg weakness during exertion. Denies significant leg swelling. - Neurologic: Reports migraines, controlled with medication. - Psychiatric: Reports anxiety and depression. - Gastrointestinal: Denies current nausea or vomiting; previously experienced symptoms managed with medication. - Endocrine: Denies symptoms of diabetes, recent weight change reported. Physical exam (Primary Care) Vital Signs: Last Vital Signs Temp 97.6 F 10/05/24 13:44 Pulse 74 10/05/24 13:44 Resp 16 10/05/24 13:44 BP 122/72 10/05/24 13:44 Pulse Ox 98 04/23/25 13:44 Oxygen Delivery Method Room Air 10/05/24 13:44 Care Plan Goal for BP management: <130/90 at Goal BMI result Body Mass Index 16.8 BMI Assessment/Plan discussion: Low BMI Low, Plan discussed: lifestyle, increase calorie intake and dietary Tobacco/Smoking Status: Tobacco use Status Tobacco use date assessed 10/05/24 10/05/24 13:53 Patient Tobacco Use Status Former Tobacco user 10/05/24 13:53 PHQ-9: PHQ-9 Score PHQ-9: Total score 0 10/05/24 14:07 Depression Screening Interpretation: Negative Thrive Assessment: Date of Thrive Assessment Date Thrive assessed 10/05/24 10/05/24 13:53 Const Other: Appearance: Alert. Oriented X3. No acute distress. Head: Normal external exam. Normocephalic. Atraumatic. Eyes: Pupils are equal, round, and reactive to light. Extraocular movements intact. Conjunctiva and sclera normal. Eyelids normal. Ears: External auditory canal normal. Tympanic membranes normal. Throat: Pharynx normal. Uvula midline. Moist mucous membranes. Neck: Normal inspection. Neck supple. Full range of motion. No adenopathy. Thyroid Normal. No meningeal signs. No neck mass noted. Cardiovascular: Normal heart rate and rhythm. Heart sound normal. No murmurs noted. Pulses normal throughout. Respiratory: Shortness of breath noted, especially when climbing stairs. No wheezes/rales/rhonchi noted. Chest nontender. No accessory muscle usage noted or decreased air movement noted. Abdomen: Soft and nontender. Bowel sounds normal in all 4 quadrants. No distention noted. No organomegaly noted. No visible injury noted. Back: No costovertebral angle tenderness. Full range of motion noted. Skin: Skin warm and dry. Normal skin color. Normal skin turgor. No rashes /lesions/lacerations noted. Extremities: No lower extremity edema. Extremities exhibit normal range of motion. Extremities nontender. Neuro: Oriented X 3. No motor deficit. No sensory deficit. Reflexes normal. Results Reviewed Results Reviewed: - Tests and Diagnostics: December [address] showing stable pulmonary nodules. Coding Level of Care Code New Pt Level 4 (61666) Complex EM visit Add On G2211 Diagnoses Establishing care with new doctor, encounter for Z76.89 Pulmonary nodule R91.1 SOB (shortness of breath) R06.02 [place] (dyspnea on exertion) R06.09 Moderate persistent asthma with acute exacerbation J45.41 Asthma complication type: with acute exacerbation Asthma persistence: persistent Asthma severity: moderate GERD (gastroesophageal reflux disease) K21.9 Depression F32.A Anxiety F41.9 IBS (irritable bowel syndrome) K58.9 Chronic low back pain M54.50; G89.29 Sciatica of left side M54.32 Pure hypercholesterolemia, unspecified E78.00 BRCA1 gene mutation positive in female Z15.01; Z15.02; Z15.09 Hypertension I10 Underweight (BMI < 18.5) R63.6; Z68.1 Additional Codes NELIDA-7 Assessment Billing - NELIDA-7 Assessment Tool: NELIDA-7 Assessment 76890 ([id number]) PHQ-9 - 32960 - PHQ-9 Billing: Yes ([id number]) Assessment & Plan Assessment & Plan (1) Establishing care with new doctor, encounter for: Code(s): Z76.89 - Persons encountering health services in other specified circumstances Category: Medical (2) Pulmonary nodule: Comment: Has a new 3 mm pulmonary nodule noted on her last CT scan from November 2021. Other nodules appear to be stable. Code(s): R91.1 - Solitary pulmonary nodule Category: Medical Plan: Will refer to pulmonology. Will order repeat chest CT to evaluate pulmonary nodules. Condition is chronic and stable continue to monitor. (3) SOB (shortness of breath): Code(s): R06.02 - Shortness of breath Category: Medical Plan: Patient to continue Symbicort inhaler twice daily, albuterol inhaler as needed, repeat chest CT, labs ordered including CBC, CMP, BNP, and pulmonary referral. Condition is chronic and stable continue to monitor. (4) [place] (dyspnea on exertion): Code(s): R06.09 - Other forms of dyspnea Category: Medical Plan: Patient to continue Symbicort inhaler twice daily, albuterol inhaler as needed, repeat chest CT, labs ordered including CBC, CMP, BNP, and pulmonary referral. Condition is chronic and stable continue to monitor. (5) Asthma: Code(s): J45.909 - Unspecified asthma, uncomplicated Category: Medical Qualifiers: Asthma complication type: with acute exacerbation Asthma persistence: persistent Asthma severity: moderate Qualified Code(s): J45.41 - Moderate persistent asthma with (acute) exacerbation Plan: Patient to continue Symbicort inhaler twice daily, albuterol inhaler as needed, repeat chest CT, labs ordered including CBC, CMP, BNP, and pulmonary referral. Condition is chronic and stable continue to monitor. (6) GERD (gastroesophageal reflux disease): Code(s): K21.9 - Gastro-esophageal reflux disease without esophagitis Category: Medical Plan: Continue pantoprazole. Emphasize dietary strategies. Condition is chronic and stable continue to monitor. (7) Depression: Code(s): F32.A - Depression, unspecified Category: Medical Plan: Maintain current therapy. Monitor mental health status and adjust as required. Condition is chronic and stable continue to monitor. (8) Anxiety: Code(s): F41.9 - Anxiety disorder, unspecified Category: Medical Plan: Maintain current therapy. Monitor mental health status and adjust as required. Condition is chronic and stable continue to monitor. (9) IBS (irritable bowel syndrome): Code(s): K58.9 - Irritable bowel syndrome, unspecified Category: Medical Plan: Control with diet and lifestyle. Monitor for issue exacerbations. Condition is chronic and stable continue to monitor. (10) Chronic low back pain: Code(s): M54.50 - Low back pain, unspecified; G89.29 - Other chronic pain Category: Medical Plan: Monitor pain levels. Adjust management per response to therapy. Condition is chronic and stable continue to monitor. (11) Sciatica of left side: Code(s): M54.32 - Sciatica, left side Category: Medical Plan: Monitor pain levels. Adjust management per response to therapy. Condition is chronic and stable continue to monitor. (12) Pure hypercholesterolemia, unspecified: Code(s): E78.00 - Pure hypercholesterolemia, unspecified Category: Medical Plan: Maintain atorvastatin. Monitor lipid levels periodically. Condition is chronic and stable continue to monitor. (13) BRCA1 gene mutation positive in female: Code(s): Z15.01 - Genetic susceptibility to malignant neoplasm of breast; Z15.02 - Genetic susceptibility to malignant neoplasm of ovary; Z15.09 - Genetic susceptibility to other malignant neoplasm Category: Medical Plan: Routine follow-up care and monitoring. Status post bilateral mastectomy. Condition is chronic and stable continue to monitor. (14) Hypertension: Code(s): I10 - Essential (primary) hypertension Category: Medical Plan: Continue propranolol extended release. Periodic monitoring of blood pressure needed. (15) Underweight (BMI < 18.5): Code(s): R63.6 - Underweight; Z68.1 - Body mass index [BMI] 19.9 or less, adult Category: Medical Plan: Patient to improve her diet, calorie intake, protein intake. Condition is chronic and stable continue to monitor. Plan Plan Patient was informed and verbally consented to the use of an ambient scribe for clinic note documentation during this visit. 1. Chronic Obstructive Pulmonary Disease Copd Continue Symbicort inhaler twice daily, albuterol as needed. Repeat chest CT and pulmonology referral. 2. Anxiety And Depressive Disorders Maintain current therapy. Monitor mental health status and adjust as required. 3. Brca Positive Status Routine follow-up care and monitoring. 4. Hyperlipidemia Maintain atorvastatin. Monitor lipid levels periodically. 5. Hypertension Continue propranolol extended release. Periodic monitoring of blood pressure needed. 6. Migraines Continue monthly Ajovy injections. Consider trigger avoidance strategies. 7. Gastroesophageal Reflux Disease Gerd Continue pantoprazole. Emphasize dietary strategies. 8. Chronic Back Pain Monitor pain levels. Adjust management per response to therapy. 9. Irritable Bowel Syndrome Ibs Control with diet and lifestyle. Monitor for issue exacerbations. I discussed with the patient her current diagnosis of Chronic Obstructive Pulmonary Disease (COPD) with an emphasis on both past management and future plans. I recommended she proceed with a routine use of Symbicort inhaler to manage symptoms more effectively and discussed using the albuterol inhaler as necessary. I explained the need for a repeat chest CT to closely monitor lung nodules. Further, the importance of pulmonary follow-up was highlighted, with plans to reconnect her with a track production engineer. I also emphasized continued psychotherapy for managing anxiety and depression, connecting stress with her daughter's challenges. We reviewed her ongoing regimen for hypertension, hyperlipidemia, GERD, and migraine management. The patient accepted all recommendations and expressed understanding of the proposed plan. A TB screening was ordered as part of her routine caregiver check-up. Orders: Orders B Type Natriuretic Peptide Today R60.0 - Localized edema Liver Panel Today Z00.00 - Encounter for general adult medical examination without abnormal findings Lipid Panel Today Z00.00 - Encounter for general adult medical examination without abnormal findings Hemoglobin A1c Today Z00.00 - Encounter for general adult medical examination without abnormal findings Magnesium Today Z00.00 - Encounter for general adult medical examination without abnormal findings C Reactive Protein Today Z00.00 - Encounter for general adult medical examination without abnormal findings T Spot TB Today Z00.00 - Encounter for general adult medical examination without abnormal findings CT chest wo IV con Today R06.02 - Shortness of breath, R06.09 - Other forms of dyspnea, R91.1 - Solitary pulmonary nodule Complete Blood Count Auto Diff Today Z00.00 - Encounter for general adult medical examination without abnormal findings Comprehensive [place]. Panel Fast Today Z00.00 - Encounter for general adult medical examination without abnormal findings Vitamin B12 and Folate Today Z00.00 - Encounter for general adult medical examination without abnormal findings Vitamin D 25-OH Total Today Z00.00 - Encounter for general adult medical examination without abnormal findings Erythrocyte Sedimentation Rate Today Z00.00 - Encounter for general adult medical examination without abnormal findings TSH reflex Free T4 Today Z00.00 - Encounter for general adult medical examination without abnormal findings H pylori Ag Stool Today K58.9 - Irritable bowel syndrome, unspecified Referrals Pulmonology Referral R06.02 - Shortness of breath, R06.09 - Other forms of dyspnea, R91.1 - Solitary pulmonary nodule Medications: Refilled budesonide-formoterol 160-4.5 mcg/actuation (Symbicort) 2 puffs inhalation BID 10.2 grams 11RF 30 days J44.9 - Chronic obstructive pulmonary disease, un specified Patient Instructions: - Use Symbicort inhaler twice daily as directed. - Use albuterol inhaler as needed for shortness of breath. - Attend scheduled chest CT appointment. - Follow up with Dr. Delgado, track production engineer. - Continue therapy sessions for anxiety and depression. - Follow medication regimen for other chronic conditions, including migraines, GERD, and hypertension. - Attend blood work appointment fasting as instructed. - Regularly monitor blood pressure at home. - Call if you experience worsening of symptoms or new health concerns.
[2024-10-05 13:44] VITALS: BP 122/72; PULSE 74; RESP 16; TEMP 36.4; O2SAT 98; BMI 16.8
== END 2024-10-05 14:31 | disposition home or self-care (01) ==
LOC: HO.HMCSH 13:36
PROVIDERS: PCP Internal Medicine; Visit Provider Physician Assistant Medical
DX: Z76.89 Persons encountering health services in other specified circumstances (principal); R91.1 Solitary pulmonary nodule; R06.02 Shortness of breath; R06.09 Other forms of dyspnea; J45.41 Moderate persistent asthma with (acute) exacerbation; K21.9 Gastro-esophageal reflux disease without esophagitis; F32.A Depression, unspecified; F41.9 Anxiety disorder, unspecified; K58.9 Irritable bowel syndrome, unspecified; M54.50 Low back pain, unspecified; G89.29 Other chronic pain; M54.32 Sciatica, left side; E78.00 Pure hypercholesterolemia, unspecified; Z15.01 Genetic susceptibility to malignant neoplasm of breast; Z15.02 Genetic susceptibility to malignant neoplasm of ovary; Z15.09 Genetic susceptibility to other malignant neoplasm; I10 Essential (primary) hypertension; R63.6 Underweight; Z68.1 Body mass index [BMI] 19.9 or less, adult

== ENCOUNTER → 2024-10-05 13:36 | Outpatient (BNVA) | payer OTHER, SELFPAY | PROVIDERS: PCP Internal Medicine; Visit Provider Physician Assistant Medical | DX: Z76.89 Persons encountering health services in other specified circumstances (principal); R91.1 Solitary pulmonary nodule; R06.02 Shortness of breath; R06.09 Other forms of dyspnea; J45.41 Moderate persistent asthma with (acute) exacerbation; K21.9 Gastro-esophageal reflux disease without esophagitis; F32.A Depression, unspecified; F41.9 Anxiety disorder, unspecified; K58.9 Irritable bowel syndrome, unspecified; M54.50 Low back pain, unspecified; G89.29 Other chronic pain; M54.32 Sciatica, left side; E78.00 Pure hypercholesterolemia, unspecified; I10 Essential (primary) hypertension; R63.6 Underweight; Z68.1 Body mass index [BMI] 19.9 or less, adult; Z15.01 Genetic susceptibility to malignant neoplasm of breast; Z15.02 Genetic susceptibility to malignant neoplasm of ovary; Z15.09 Genetic susceptibility to other malignant neoplasm; Z79.899 Other long term (current) drug therapy; Z90.13 Acquired absence of bilateral breasts and nipples | CPT/HCPCS: 96127 ==

== ENCOUNTER 2024-10-06 08:10 | Outpatient (REF) | payer OTHER, SELFPAY ==
[2024-10-06 08:29] LABS: MANUAL DIFF FLAG NO
[2024-10-06 08:40] LABS: Basophils Absolute Auto 0.1 X10*3/uL (0.0-0.2); Basophils Percent Auto 1.2 % (0-2); Eosinophils Absolute Auto 0.3 X10*3/uL (0.0-0.4); Hematocrit 41.8 % (37.0-47.0); Hemoglobin 13.5 g/dl (12.0-16.0); Imm Gran Abs Auto 0.01 X10*3/uL (0.00-0.03); Imm Gran Pct Auto 0.2 % (0.0-0.4); Lymphocytes Absolute Auto 1.6 X10*3/uL (1.2-4.9); Lymphocytes Percent Auto 30.1 % (20-40); Mean Corpuscular HGB Conc 32.3 g/dl (31.0-35.0); Mean Corpuscular Hemoglobin 29.5 pg (27.0-33.0); Mean Corpuscular Volume 91.3 fL (80.0-98.0); Mean Platelet Volume 11.8 fL (9.4-12.3); Monocytes Absolute Auto 0.4 X10*3/uL (0.1-1.2); Monocytes Percent Auto 8.1 % (2-11); Neutrophils Absolute Auto 2.8 x10*3/uL (2.0-8.3); Neutrophils Percent Auto 54.4 % (45-73); Platelet Count 233 X10*3/uL (160-400); Red Blood Count 4.58 X10*6/uL (4.20-5.50); Red Cell Distribution Width 13.8 % (11.0-16.0); White Blood Count 5.2 X10*3/uL (4.8-10.8)
[2024-10-06 08:47] LABS: Estimated Average Glucose 117 mg/dL; Hemoglobin A1C 136.6807 umol/L; Hemoglobin A1c % 5.7 % (<6.0); Total Hemoglobin (HGBA1C) 3515.8775 umol/L
[2024-10-06 09:10] LABS: B Type Natriuretic Peptide 41 pg/mL (<100)
[2024-10-06 09:15] LABS: Alanine Aminotransferase 36 U/L (0-31); Albumin Level 4.2 g/dL (3.5-5.0); Alkaline Phosphatase 106 U/L (39-117); Anion Gap 9 (12-20); Aspartate Amino Transferase 41 U/L (5-31); Bilirubin Direct 0.2 mg/dL (0.0-0.5); Bilirubin Total 0.5 mg/dL (0.0-1.0); Blood Urea Nitrogen 14 mg/dL (9-16); C Reactive Protein < 0.04 mg/dL (< or = 0.50); Calcium 9.9 mg/dL (8.4-10.2); Carbon Dioxide 29 mmol/L (22-29); Chloride 108 mmol/L (96-108); Cholesterol 194 mg/dL (<200); Estimated Glomerular Filt Rate > 60; Glucose Fasting 130 mg/dL (60-99); HDL Cholesterol 47 mg/dL (>40); LDL Cholesterol Calculated 123 mg/dL (<100); Potassium 4.7 mmol/L (3.3-5.1); Sodium 141 mmol/L (135-145); Triglycerides 120 mg/dL (<150)
[2024-10-06 09:21] LABS: Erythrocyte Sedimentation Rate 14 MM/HR (0-20)
[2024-10-06 09:29] LABS: TSH reflex Free T4 1.58 uIU/mL (0.32-4.0); Vitamin D 25-OH Total 72.1 ng/mL (>30)
[2024-10-06 09:41] LABS: Folate 14.1 ng/mL (> or = 4.0); Vitamin B12 > 2000 pg/mL (200-900)
[2024-10-09 07:29] LABS: TS Negative Control Passed; TS Panel A 0; TS Panel B 0; TS Positive Control Passed; TSpotTB Negative (Negative)
== END 2024-10-06 08:11 | disposition home or self-care (01) ==
LOC: HO.LAB 08:10
PROVIDERS: PCP Internal Medicine; Visit Provider Physician Assistant Medical
DX: Z00.00 Encounter for general adult medical examination without abnormal findings (principal); R60.0 Localized edema
CPT/HCPCS: 36415; 80053; 80061; 80076; 82248; 82306; 82607; 82746; 83036; 83735; 83880; 84443; 85025; 85652; 86140; 86481

== ENCOUNTER 2024-10-07 10:39 | Outpatient (REF) | payer OTHER, SELFPAY | END 2024-10-07 10:40 | disposition home or self-care (01) | LOC: HO.LNP 10:39 | PROVIDERS: Visit Provider Physician Assistant Medical | DX: K58.9 Irritable bowel syndrome, unspecified (principal) | CPT/HCPCS: 87338 ==

== ENCOUNTER 2024-12-01 16:12 | Outpatient (REF) | payer OTHER, SELFPAY ==
--- NOTE | ~2024-12-01 | CT_ITS ---
EXAMINATION: CT CHEST WITHOUT CONTRAST CLINICAL INFORMATION: Shortness of breath DLP: 176 mGY*cm COMPARISON: January 02, 2023 TECHNIQUE: Multidetector volumetric CT imaging of the chest was done. Axial MIP volume rendering provided. Sagittal and coronal reformatted images were obtained. This CT examination was performed using dose optimization techniques as appropriate, variously including the following: *Automated exposure control *Adjustment of mA and/or kV according to patient size (this includes techniques or standardized protocols for targeted exams where dose is matched to indication/reason for exam; i.e. extremities or head) *Use of iterative reconstruction technique FINDINGS: LUNGS: There is a masslike density in the medial segment right middle lobe measures 4.3 x 1.5 x 2.6 cm (transverse by cc by AP). There is a stable groundglass density in the medial base of the left lower lobe. 7 mm nodule in the anterolateral aspect of the left lower lobe is stable. Coarse markings and bronchiectasis along the minor fissure, in the right upper lobe, are stable. Cylindrical bronchiectasis in a right upper lobe airway is stable. MEDIASTINUM: [place] mediastinal nodes are slightly increased. CORONARY ARTERY CALCIFICATION: None visualized on this study. PLEURA: Biapical pleural thickening, greater on the right, is stable. AXILLA: No lymphadenopathy. UPPER ABDOMEN: Simple hepatic cyst in the anterior aspect of the left lobe of the liver is stable. There is a stable punctate stone in the mid right kidney. OSSEOUS STRUCTURES: Moderate S-shaped scoliosis is again noted. There is moderate to severe degenerative changes in the upper lumbar spine. CT/CT chest wo IV con IMPRESSION: There is a masslike density in the medial segment right middle lobe that measures 4.3 x 1.5 x 2.6 cm (transverse by cc by AP). Differential considerations include pneumonia, neoplasm, and pulmonary infarct. Follow-up to radiographic resolution. Stable punctate stone in the mid right kidney. Moderate scoliosis and degenerative changes in the lumbar spine. Fleischner guidelines were followed. Electronically signed by: Aries Stuart MD 12/01/2024 05:40 PM EDT
== END 2024-12-01 16:13 | disposition home or self-care (01) ==
LOC: HO.CT 16:12
PROVIDERS: PCP Internal Medicine; Visit Provider Physician Assistant Medical
DX: R06.02 Shortness of breath (principal); R06.09 Other forms of dyspnea; R91.1 Solitary pulmonary nodule
CPT/HCPCS: 71250

== ENCOUNTER → 2024-12-01 16:13 | Outpatient (BNV) | payer OTHER, SELFPAY | PROVIDERS: PCP Internal Medicine; Visit Provider Radiology Diagnostic Radiology | DX: R91.8 Other nonspecific abnormal finding of lung field (principal); M51.369 Other intervertebral disc degeneration, lumbar region without mention of lumbar back pain or lower extremity pain; M41.86 Other forms of scoliosis, lumbar region | CPT/HCPCS: 71250 ==

== ENCOUNTER 2025-01-20 14:58 | Outpatient (REF) | payer OTHER, SELFPAY ==
--- NOTE | ~2025-01-20 | CT_ITS ---
CLINICAL HISTORY: R91.8 - Other nonspecific abnormal finding of lung field CT chest without contrast Comparison: CT/MT/SR - CT CHEST WO IV CON - 12/01/24 17:[address]/MT/SR - CT CHEST WITHOUT IV CONTRAST - 12/01/24 17:00 EDT Findings: No significant coronary artery atherosclerotic vascular calcifications. Stable subcentimeter lymph nodes in the mediastinum. Evaluation of the hilar regions is slightly limited without intravenous contrast. Bilateral mastectomies. Scarring in both lungs Decreased size of previously noted masslike density in the right middle lobe of the lung which previously measured 4.3 x 1.5 x 2.6 cm on 12/01/2024 and currently measures 0.8 x 0.8 cm. Recommend short-term follow up to evaluate for possible resolution (1 month). Stable 0.8 x 0.7 cm solid nodule in the left lower lobe of the lung. There are multiple additional stable solid pulmonary nodules. New somewhat linear opacity within the lingula which may be due to atelectasis. Attention on follow-up imaging is recommended. Stable size of 1 cm cyst in the anterior left hepatic lobe. No acute fractures. Scoliosis. IMPRESSION: 1. Decreased size of previously noted masslike density in the right middle lobe of the lung which previously measured 4.3 x 1.5 x 2.6 cm on 12/01/2024 and currently measures 0.8 x 0.8 cm. Recommend short-term follow up to evaluate for possible resolution (1 month). 2. Stable 0.8 x 0.7 cm solid nodule in the left lower lobe of the lung. There are multiple additional stable solid pulmonary nodules. 3. New somewhat linear opacity within the lingula which may be due to atelectasis. Attention on follow-up imaging is recommended. This document has been electronically signed by: Jonatan Garcia DO on 01/23/2025 09:30:42
== END 2025-01-20 14:59 | disposition home or self-care (01) ==
LOC: HO.CT 14:58
PROVIDERS: PCP Internal Medicine; Visit Provider Hospitalist
DX: R91.8 Other nonspecific abnormal finding of lung field (principal); J18.9 Pneumonia, unspecified organism
CPT/HCPCS: 71250

== ENCOUNTER → 2025-01-20 15:00 | Outpatient (BNV) | payer OTHER, SELFPAY | PROVIDERS: PCP Internal Medicine; Visit Provider Family Medicine | DX: R91.8 Other nonspecific abnormal finding of lung field (principal) | CPT/HCPCS: 71250 ==

== ENCOUNTER 2025-01-25 10:09 | Outpatient (AMB) | payer OTHER, SELFPAY ==
[2025-01-25 10:28] VITALS: BP 138/82; PULSE 55; O2SAT 99; BMI 17.0
--- NOTE | 2025-01-25 10:28 | A.OFFVIS_ITS ---
Vital Signs 01/25/25 10:28 Height 5 ft 3 in Weight 95 lb 14.417 oz BMI 17.0 BP 138/82 Pulse 55 Pulse Source Pulse Oximeter Pulse Oximetry (%) 99 Oxygen Delivery Method Room Air Intake Visit Reasons: dyspnea/short of breath Customer Greeter Required: No Accompanied by: Self / Same As Patient Allergies bee pollen (BEE STINGS) Allergy (Severe, Verified 01/25/25 10:31) ANAPHYLAXIS meperidine (From DEMEROL) Allergy (Mild, Verified 01/25/25 10:31) VOMITING oxycodone (OXYCODONE) Allergy (Mild, Verified 01/25/25 10:31) VOMITING HPI Comments Details: The patient is a 59 year woman known history of breast cancer status post bilateral mastectomy follows closely with oncology. Apparently she was in usual [facility] until sometime in June she started developing worsening cough shortness of breath along with wheezing. She went to see her primary care doctor and was prescribed prednisone and antibiotics at this time. She was also having significant GI symptoms at the time. He was diagnosed initially with the flu. Her cough persisted and did not improved she continued having the shortness of breath she went back in received a 2nd course of antibiotics and prednisone. Her cough was better but then got worse again. She went for an x-ray was found to have pneumonia. I personally looked at the x-ray demonstrating fluffy areas of opacities suggesting a viral process. She was given another course of antibiotics and prednisone. Initially started getting better but again in September her symptoms again started getting worse worsening cough and shortness of breath. At the time was diagnosed with coronavirus so, COVID-19 infection as he works in the [employer]. She did come in she had an x-ray and subsequently a CT scan of the chest demonstrating nodular densities and ground- glass appearance suggesting pneumonitis inflammation. A based on other CT scans of the abdomen she has had back in the last few years it demonstrates that there is interval worsening of the pulmonary nodules. Although the cast risks is the nodules are different. On further questioning she did have mastectomy for her breast cancer did not use any hormonal therapies or chemotherapy or radiation therapy afterwards. She has been doing well and does follow closely with oncology. 10/2019 the patient is here for pulmonary follow-up visit. She is doing much better. She is tolerating the Symbicort and is helping her with her cough and shortness of breath. She does use it twice a day. She has noticed a little more congestion now with a heated humidity. She did undergo pulmonary function studies which demonstrated a significant response to bronchodilators and also a diffusion impairment. Her CT scan we also reviewed. It appears that her areas of ground-glass opacities did improved. She still has some redness of scarring in the right middle lobe secondary to her pneumonia. In addition to that she appears to have stable nodules when compared to her CT scan from September. Nodules measuring 3-4 mm in size. Patient will need a repeat CT scan specially with history of breast cancer. On examination she still having some wheezing. She knows to continue using the Symbicort for now in the rescue inhaler as needed. She is to call if her symptoms get any worse. 05/17/2020 the patient is here for pulmonary follow-up visit. She had been doing very well until recently about 3 weeks ago when she started again developing some shortness of breath and cough. She has noticed some chest tightness. She has been using her Symbicort which was initially helpful but not so much anymore. She is having to use her rescue inhaler. She has noticed some productive phlegm. In the meantime we did look at her CT scan of the chest that she had back in December demonstrating interval resolution of the ground-glass nodular opacities likely from the COVID-19 infection. She still has some underlying pulmonary nodules that appear to be stable when compared to the CT scan from September 2019. At this point she will need a CT scan for December 2020 a year from her last 1. She does have a history of breast cancer so therefore these nodules up to follow closely. We will also treated for an asthma exacerbation also at this time. 10/12/2020 the patient is here for pulmonary follow-up visit. It appears that her respiratory symptoms are significantly improved. She was able to stop all her respiratory inhalers. She denies any shortness of breath or coughing. She did get vaccinated for COVID-19 at this time. We did again look at her CT scan that she had back in the summer of 2019. She has underlying pulmonary nodules that need follow-up. Plan to follow-up sometime in December to follow-up with her CT scan of the chest the make sure that there is stability with the pulmonary nodules in view of her history of in her breast cancer. 01/21/2022 the patient is here for a pulmonary follow-up visit. Overall the patient appears to be doing well at this time. She has had some issues with breathing due to that he humidity. She had to start using her rescue inhaler once or twice a day. Now they symptoms have subsided to some degree. She has not required the Symbicort. The patient did have a recent CT scan of the chest. It appears that she does have a new 3 mm pulmonary nodule. Her other nodules appear to be stable. She has had a history of breast cancer. Therefore, these nodules need to be followed closely. The nodule is only 3 mm in size therefore we will plan to repeat the CT scan in a year's time. If any new symptoms arise or any worsening issues the patient is to call the office for an earlier evaluation. 01/25/2025 the patient i here to be seen again as a new patient since it has been several years. The patient had been in usual state health until recently when she started developing worsening cough chest congestion. She went to the ER sometime in late November. She did have imaging studies including a CT scan of the chest that I personally reviewed demonstrating a masslike consolidation the right middle lobe. Along with that she did have pulmonary nodules bilaterally and some evidence of chronic bronchitis. The patient also had prosthesis done that she had a bilateral radical mastectomy after being diagnosed with a BRCA gene. The patient was placed on antibiotics and subsequent repeat CAT scan was done just a few days ago. I did personally review that CAT scan demonstrating significant decrease in the masslike density in the right middle lobe now measuring only about 8 mm in size. Therefore likely infectious process although she has other pulmonary nodules that need to be followed. Will plan to repeat a CAT scan in a 10-12 weeks to make sure that we seek full resolution of this process. In the meantime I did provide her with an Acapella valve to help with the chronic bronchitis and mucus plugging. The patient already uses inhalers with good effect. The patient has not gotten any any vaccines. She needs to get a pneumonia vaccine. Hopefully the patient can provide us also with a sputum culture. Will follow-up in [address] scan and we can also follow-up with a sputum cultures. If she has any issues or concerns she can always call. [facility] Medical History (Updated 01/25/25 @ 22:08 by Celso Delgado MD) Underweight (BMI < 18.5) Hypertension General medical exam [place] (dyspnea on exertion) SOB (shortness of breath) Oral candidiasis Sciatica of left side Chronic low back pain Kidney stones Cervical radiculopathy BRCA positive IBS (irritable bowel syndrome) Anxiety Depression Establishing care with new doctor, encounter for Vitamin B12 deficiency Vitamin D deficiency Pure hypercholesterolemia, unspecified Restless leg syndrome Hx of migraines GERD (gastroesophageal reflux disease) History of 2019 novel coronavirus disease (COVID-19) Asthma Pulmonary nodule Surgical History History of esophagogastroduodenoscopy (EGD) (~11/29/21) Hx of colonoscopy (~11/29/21) Hx of tubal ligation History of femoral hernia repair (10/21/21) History of hysterectomy (2014) History of mastectomy (2014) Family History Sister Breast cancer Family/Other Lung cancer Breast cancer Family/Other Breast cancer Family/Other Breast cancer Paternal Aunt Breast cancer Ovarian cancer Mother Stroke Heart disease Asthma Emphysema lung COPD (chronic obstructive pulmonary disease) Diabetes Dementia Father Heart disease Social History Household Members: Spouse and Children Housing: House Are you a primary rn patient care to a significant other at home: Yes Do you presently have visiting nurse or other home services: No Alcohol intake: current Alcohol intake frequency: does not drink Patient Tobacco Use Status: Former Tobacco user service: No Current occupational status: employed Cognitive needs: No Hearing needs: No Vision needs: Yes (rx glasses) Review of Systems Const Denies night sweats ENT Denies change in voice, Denies lip swelling, Denies mouth pain, Reports nasal congestion, Reports nasal discharge and Denies tongue swelling Card Denies chest pain and Denies dyspnea Resp Denies cough, Denies dyspnea and Reports wheezing GI Denies abdominal pain Musc Denies no additional complaints Neuro Denies Neuro-related abnormal movements Psych Denies no additional complaints Kt/Lymph Denies easy bleeding and Denies lymphadenopathy Aller/Immun Denies lip swelling, Denies tongue swelling and Reports wheezing Physical Exam Vital Signs: Last Vital Signs Pulse 55 01/25/25 10:28 BP 138/82 01/25/25 10:28 Pulse Ox 99 01/25/25 10:28 Oxygen Delivery Method Room Air 01/25/25 10:28 BMI result Body Mass Index 17.0 Const General: alert HEENT Head: Yes normocephalic Neck Neck: Yes normal visual inspection, Yes full ROM and Yes no lymphadenopathy Chest Chest palpation & inspection: normal inspection of the chest Resp Auscultation: no wheezes and diminished lung sounds Cardio Rate: regular rate Rhythm: regular rhythm Heart sounds: S1 normal heart sound present and S2 normal heart sound present GI Palpation (GI): Soft to palpation and nontender Auscultation: normal bowel sounds Skin General skin exam: rashes and/or lesions noted Assessment & Plan Assessment & Plan (1) Asthma: Code(s): J45.909 - Unspecified asthma, uncomplicated Category: Medical Qualifiers: Asthma severity: moderate Asthma persistence: persistent Asthma complication type: with acute exacerbation Qualified Code(s): J45.41 - Moderate persistent asthma with (acute) exacerbation (2) Pulmonary nodule: Comment: Has a new 3 mm pulmonary nodule noted on her last CT scan from November 2021. Other nodules appear to be stable. Code(s): R91.1 - Solitary pulmonary nodule Category: Medical (3) Lung mass: Comment: interval decrease in size Code(s): R91.8 - Other nonspecific abnormal finding of lung field Category: Medical (4) Pneumonia: Code(s): J18.9 - Pneumonia, unspecified organism Category: Medical Qualifiers: Pneumonia type: due to unspecified organism Laterality: right Lung location: middle lobe of lung Qualified Code(s): J18.9 - Pneumonia, unspecified organism Plan Continue short-acting beta agonist as needed start CPT with acapella valve sputum cx Repeat CT scan of the chest in 10-12 weeks Follow-up 3 months or sooner if any symptoms worsen Orders: Orders Sputum Cult + Gram stain Today R91.1 - Solitary pulmonary nodule Coding Level of Care Code New Pt Level 4 (72571) Diagnoses Moderate persistent asthma with acute exacerbation J45.41 Asthma severity: moderate Asthma persistence: persistent Asthma complication type: with acute exacerbation Pulmonary nodule R91.1 Lung mass R91.8 Pneumonia of right middle lobe due to infectious organism J18.9 Pneumonia type: due to unspecified organism Laterality: right Lung location: middle lobe of lung Time Spent (min) 40
== END 2025-01-25 11:13 | disposition home or self-care (01) ==
LOC: HO.HPS 10:10
PROVIDERS: PCP Internal Medicine; Visit Provider Hospitalist
DX: J45.41 Moderate persistent asthma with (acute) exacerbation (principal); R91.1 Solitary pulmonary nodule; R91.8 Other nonspecific abnormal finding of lung field; J18.9 Pneumonia, unspecified organism
CPT/HCPCS: 99204

== ENCOUNTER 2025-04-12 08:52 | Outpatient (AMB) | payer OTHER, SELFPAY ==
--- NOTE | 2025-04-12 09:58 | AM.OFFVISNUR ---
Intake Visit Reasons: Flu vaccine Allergies bee pollen (BEE STINGS) Allergy (Severe, Verified 01/25/25 10:31) ANAPHYLAXIS meperidine (From DEMEROL) Allergy (Mild, Verified 01/25/25 10:31) VOMITING oxycodone (OXYCODONE) Allergy (Mild, Verified 01/25/25 10:31) VOMITING Office Procedures Flu Questionnaire Does the patient have a severe egg allergy?: No Does the patient have severe life threatening allergies?: No Does the patient have a fever or illness today?: No Has the patient ever had Guillain-Carlton Syndrome?: No Has the patient ever had any past reaction to a flu shot?: No Immunizations Fluarix [id number] (PF) 45 mcg (15 mcg x 3)/0.5 mL IM syringe Performing Provider: Macho Osborne MD [facility] [place] Administered by: ARIANNA Mackenzie on 04/12/25 09:59 Dose Route Admin Location Dispensed Lot Number Expiration Date [facility] Pearl Glue Drier 0.5 mL IM Right Deltoid 0.5 mL [id number] 12/12/25 65477-822-35 [employer] VIS Given Date VIS Provided VIS Publication Date 04/12/25 Single Vaccine 24 Eligibility Eligibility Date Funding Source Not [facility] Eligible 04/12/25 Private Assessment & Plan Assessment & Plan Orders: Orders Influenza [id number] Immunization Today Z23 - Encounter for immunization Coding
== END 2025-04-12 09:20 | disposition home or self-care (01) ==
LOC: HO.HMCSH 08:52
PROVIDERS: PCP Internal Medicine; Visit Provider Internal Medicine
DX: Z23 Encounter for immunization (principal)

== ENCOUNTER → 2025-04-12 08:52 | Outpatient (BNVA) | payer OTHER, SELFPAY | PROVIDERS: PCP Internal Medicine | DX: Z23 Encounter for immunization (principal) | CPT/HCPCS: 90471; 90656 ==

== ENCOUNTER 2025-04-13 13:23 | Outpatient (AMB) | payer OTHER, SELFPAY ==
[2025-04-13 13:32] VITALS: BP 135/70; PULSE 70; RESP 14; TEMP 36.4; O2SAT 99; BMI 16.8
--- NOTE | 2025-04-13 13:32 | MHC.PC.OV ---
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 Accompanied by: Self / Same As Patient Allergies bee pollen (BEE STINGS) Allergy (Severe, Verified 04/13/25 16:44) ANAPHYLAXIS meperidine (From DEMEROL) Allergy (Mild, Verified 04/13/25 16:44) VOMITING oxycodone (OXYCODONE) Allergy (Mild, Verified 04/13/25 16:44) VOMITING Medication List - Last Reconciled 04/13/25 by Jo-Ann Koch PA-C albuterol sulfate 2.5 mg inhalation DAILY atorvastatin 80 mg PO DAILY budesonide-formoterol 160-4.5 mcg/actuation (Symbicort) 2 puffs inhalation BID 30 days cholecalciferol (vitamin D3) 50 mcg PO DAILY cyanocobalamin (vitamin B-12) 1,000 mcg PO DAILY duloxetine 60 mg PO DAILY fremanezumab-vfrm (Ajovy) ADMINISTER 3 CONSECUTIVE 225MG INJECTIONS EVERY 3 MONTHS levalbuterol tartrate 45 mcg/actuation 1 puff PO Q6H PRN multivitamin 1 tab PO DAILY pantoprazole 40 mg PO DAILY propranolol ER 160 mg PO DAILY Tobacco use date assessed: 04/13/25 Dental Screening Dental Screen Date: 10/05/24 HPI 6 month f/u HPI Details The patient is a 59-year-old female presenting for a six-month follow-up visit and to discuss an acute issue of right arm/shoulder pain. The pain began approximately three weeks ago when she fell out of bed while sleeping. She reports the pain is exacerbated by activities such as squeezing objects or starting her car, but she denies any numbness. The patient believes she may have fractured it but has been self-managing with ibuprofen. Regarding her chronic conditions, her vitamin B12 level was previously high, and she was advised to stop her daily supplement. Her blood pressure was normal at today's visit. The patient does not need any medication refills at this time. Social History - The patient lives with her . - She has a daughter with four children. - She is actively involved with her grandchildren, one of whom has anxiety. [facility] Medical History (Updated 04/13/25 @ 16:49 by Jo-Ann Koch PA-C) Elevated vitamin B12 level Fall Right shoulder pain Underweight (BMI < 18.5) Hypertension General medical exam [place] (dyspnea on exertion) SOB (shortness of breath) Oral candidiasis Sciatica of left side Chronic low back pain Kidney stones Cervical radiculopathy BRCA positive IBS (irritable bowel syndrome) Anxiety Depression Establishing care with new doctor, encounter for Vitamin B12 deficiency Vitamin D deficiency Pure hypercholesterolemia, unspecified Restless leg syndrome Hx of migraines GERD (gastroesophageal reflux disease) History of 2019 novel coronavirus disease (COVID-19) Asthma Pulmonary nodule Surgical History History of esophagogastroduodenoscopy (EGD) (~11/29/21) Hx of colonoscopy (~11/29/21) Hx of tubal ligation History of femoral hernia repair (10/21/21) History of hysterectomy (2014) History of mastectomy (2014) Family History Sister Breast cancer Family/Other Lung cancer Breast cancer Family/Other Breast cancer Family/Other Breast cancer Paternal Aunt Breast cancer Ovarian cancer Mother Stroke Heart disease Asthma Emphysema lung COPD (chronic obstructive pulmonary disease) Diabetes Dementia Father Heart disease Social History Household Members: Spouse and Children Housing: House Are you a 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 1. Little interest or pleasure in doing things: not at all 2. Feeling down, depressed, or hopeless: not at all 3. Trouble falling or staying asleep, or sleeping too much: not at all 4. Feeling tired or having little energy: not at all 5. Poor appetite or overeating: not at all 6. Feeling bad about yourself - or that you are a failure or have let yourself or your family down: not at all 7. Trouble concentrating on things, such as reading the newspaper or watching television: not at all 8. Moving or speaking so slowly that other people could have noticed. Or the opposite - being so fidgety or restless that you have been moving around a lot more than usual: not at all 9. Thoughts that you would be better off or of hurting yourself in some way: not at all Total score: 0 Depression Screening Interpretation: Negative Depression Screening Done: Yes 63754 - PHQ-9 Billing: Yes Source: Developed by Drs. Yimi Vasquez, Karla Wilson, Florencio Zimmer and colleagues, with an educational faisal from [employer] Thrive Questionnaire Date Thrive assessed: 10/05/24 I am a: Patient What is your living situation today?: I have a steady place to live Within the past 12 months, did the food you bought not last and you didn't have the money to get more?: Never true Within the past 12 months, did you worry whether your food would run out before you got money to buy more?: Never true Do you have trouble paying for medicines?: No Do you have trouble getting transportation to medical appointments?: No Do you have trouble paying your heating and electricity bill?: No Do you have trouble taking care of your child, family member or friend?: No Do you have trouble with day-to-day activities such as bathing, preparing meals, shopping, managing finances, etc.?: No Are you currently unemployed and looking for a job?: No Are you interested in more education?: No Please select the resources that you would like help with: None THRIVE Score: 0 AUDIT C Alcohol Use Questionnaire (AUDIT-C) 1. How often do you have a drink containing alcohol?: Never 3. How often do you have six or more drinks on one occasion?: Never Total Score: 0 Score Reviewed/Action Taken: No NELIDA-7 AMB Questionnaire NELIDA-7 Date NELIDA - 7 assessed: 10/05/24 Feeling nervous, anxious, or on edge: 1 = Several days Not being able to stop or control worryin = Nearly every day Worrying too much about different things: 2 = More than half the days Trouble relaxin = Nearly every day Being so restless that it is hard to sit still: 3 = Nearly every day Becoming easily annoyed or irritable: 0 = Not at all Feeling afraid as if something awful might happen: 0 = Not at all Total NELIDA-7 score (0-4 normal; 5-9 mild; 10-14 moderate; 15-21 severe): 12 Source: Developed by Drs. Yimi Vasquez, Karla Wilson, Florencio Zimmer and colleagues, with an educational faisal from [employer] NELIDA-7 Assessment Billing NELIDA-7 Assessment Tool: NELIDA-7 Assessment 39766 Review of Systems Const Details: - Musculoskeletal: Reports right shoulder pain for the past 3 weeks, exacerbated by squeezing or rotational movements. - Neurological: Denies numbness in the arm. - Constitutional: Denies other acute complaints. All systems reviewed & are unremarkable except as noted in HPI and below Physical exam (Primary Care) Vital Signs: Last Vital Signs Temp 97.6 F 04/13/25 13:32 Pulse 70 04/13/25 13:32 Resp 14 04/13/25 13:32 BP 135/70 04/13/25 13:32 Pulse Ox 99 04/13/25 13:32 Oxygen Delivery Method Room Air 04/13/25 13:32 Care Plan Goal for BP management: <140/90 at Goal BMI result Body Mass Index 16.8 Normal BMI Tobacco/Smoking Status: Tobacco use Status Tobacco use date assessed 04/13/25 04/13/25 13:34 Patient Tobacco Use Status Former Tobacco user 04/13/25 13:34 PHQ-9: PHQ-9 Score PHQ-9: Total score 0 04/13/25 13:34 Depression Screening Interpretation: Negative Thrive Assessment: Date of Thrive Assessment Date Thrive assessed 10/05/24 04/13/25 13:34 Const Other: Appearance: Alert. Oriented X3. No acute distress. Head: Normal external exam. Normocephalic. Atraumatic. Eyes: Pupils are equal, round, and reactive to light. Extraocular movements intact. Conjunctiva and sclera normal. Eyelids normal. Throat: Pharynx normal. Uvula midline. Moist mucous membranes. Neck: Normal inspection. Neck supple. Full range of motion. Cardiovascular: Normal heart rate and rhythm. Respiratory: No respiratory distress. Painless inspiration. Back: Full range of motion noted. Skin: Skin warm and dry. Normal skin color. Normal skin turgor. No rashes/lesions/lacerations noted. Extremities: Right shoulder tender with movement, especially when squeezing or lifting objects. No obvious ligamentous or tendon injury noted. No signs of infection. No joint effusion. No upper extremity edema noted. Otherwise all other extremities exhibit normal range of motion nontender. Neuro: Oriented X 3. No motor deficit. No sensory deficit. Reflexes normal. Results Reviewed Results Reviewed: - Last Labs: Vitamin B12 was noted to be high on previous testing. - Last Vitals: Blood pressure is noted to be fine today. Coding Level of Care Code Est Pt Level 4 (03553) Complex EM visit Add On G2211 Diagnoses Right shoulder pain M25.511 Fall W19.XXXA Elevated vitamin B12 level R74.8 General medical exam Z00.00 Additional Codes NELIDA-7 Assessment Billing - NELIDA-7 Assessment Tool: NELIDA-7 Assessment 88696 ([id number]) PHQ-9 - 80849 - PHQ-9 Billing: Yes ([id number]) Assessment & Plan Assessment & Plan (1) Right shoulder pain: Code(s): M25.511 - Pain in right shoulder Category: Medical Plan: The patient presents with right shoulder pain for three weeks following a fall from bed. Given the duration of symptoms and mechanism of injury, a fracture or a ligament/tendon injury are considered. An X-ray of the right shoulder will be ordered to rule out a fracture. If the X-ray is negative and symptoms persist, an MRI and a referral to orthopedics will be considered. The patient is currently managing pain with ibuprofen and declined other pain medications. Physical therapy is an option but will be held for now. (2) Fall: Code(s): W19.XXXA - Unspecified fall, initial encounter Category: Medical (3) Elevated vitamin B12 level: Code(s): R74.8 - Abnormal levels of other serum enzymes Category: Medical Plan: The patient has a history of an elevated vitamin B12 level, which was likely due to supplementation. A repeat vitamin B12 blood test will be ordered to ensure the level has normalized and is not too low after stopping the supplement. (4) General medical exam: Code(s): Z00.00 - Encounter for general adult medical examination without abnormal findings Category: Medical Plan: As part of routine health maintenance, a urinalysis will be ordered to check for protein, blood, and glucose. The patient will follow up in one year for a routine check-up, or sooner if needed, particularly regarding the shoulder issue. Plan Plan Patient was informed and verbally consented to the use of an ambient scribe for clinic note documentation during this visit. 1. Pain In Right Shoulder The patient presents with right shoulder pain for three weeks following a fall from bed. Given the duration of symptoms and mechanism of injury, a fracture or a ligament/tendon injury are considered. An X-ray of the right shoulder will be ordered to rule out a fracture. If the X-ray is negative and symptoms persist, an MRI and a referral to orthopedics will be considered. The patient is currently managing pain with ibuprofen and declined other pain medications. Physical therapy is an option but will be held for now. 2. Hypervitaminosis B12 The patient has a history of an elevated vitamin B12 level, which was likely due to supplementation. A repeat vitamin B12 blood test will be ordered to ensure the level has normalized and is not too low after stopping the supplement. 3. Encounter For General Adult Medical Examination Without Abnormal Findings As part of routine health maintenance, a urinalysis will be ordered to check for protein, blood, and glucose. The patient will follow up in one year for a routine check-up, or sooner if needed, particularly regarding the shoulder issue. I discussed the plan for her right shoulder pain, which has been present for three weeks after a fall. I explained that while it's been some time, we should rule out a fracture with an X-ray. I also mentioned that if the X-ray is normal but the pain continues, we may need to investigate further with an MRI for a possible ligament or tendon injury. We discussed that she could defer physical therapy for now. The patient agreed with this plan and stated she is managing pain with ibuprofen, preferring not to take stronger medications. We also reviewed her prior labs, which showed a high vitamin B12 level. I recommended rechecking her B12 level to ensure it has normalized after she stopped taking the supplement, which she can have done at the same time as her X-ray. Additionally, I ordered a routine urinalysis. We agreed on a yearly follow-up schedule, but I advised her to call sooner if her shoulder pain doesn't resolve or if other issues arise. Orders: Orders Vitamin B12 and Folate Today Z00.00 - Encounter for general adult medical examination without abnormal findings XR shoulder RT min 2V Today M25.511 - Pain in right shoulder, W19.XXXA - Unspecified fall, initial encounter UA CC w/rflx Micro + Cult Today Z00.00 - Encounter for general adult medical examination without abnormal findings Patient Instructions: - Go to the [facility] for a right shoulder X-ray. - At the same visit, have your blood drawn to recheck your vitamin B12 level. - Please also provide a urine sample for a routine check. - You can use [id number] pain relievers like ibuprofen as needed for your shoulder pain. - If your shoulder pain continues after the X-ray, please call the office to discuss the next steps, which may include an MRI. - Your next regular follow-up appointment should be in one year, but please contact us sooner if you have any concerns.
== END 2025-04-13 13:57 | disposition home or self-care (01) ==
LOC: HO.HMCSH 13:23
PROVIDERS: PCP Physician Assistant Medical; Visit Provider Physician Assistant Medical
DX: M25.511 Pain in right shoulder (principal); W19.XXXA Unspecified fall, initial encounter; R74.8 Abnormal levels of other serum enzymes; Z00.00 Encounter for general adult medical examination without abnormal findings

== ENCOUNTER → 2025-04-13 13:23 | Outpatient (BNVA) | payer OTHER, SELFPAY | PROVIDERS: PCP Physician Assistant Medical; Visit Provider Physician Assistant Medical | DX: Z00.00 Encounter for general adult medical examination without abnormal findings (principal); M25.511 Pain in right shoulder; M79.601 Pain in right arm; R74.8 Abnormal levels of other serum enzymes; Z91.81 History of falling | CPT/HCPCS: 96127 ==

== ENCOUNTER 2025-04-21 07:38 | Outpatient (REF) | payer OTHER, SELFPAY ==
--- NOTE | ~2025-04-21 | XR_ITS ---
EXAMINATION: XR SHOULDER, RIGHT CLINICAL INFORMATION: M25.511 - Pain in right shoulder COMPARISON: None available. TECHNIQUE: AP external rotation, Grashey, scapular Y, and axillary views of the right shoulder. FINDINGS: No evidence of fracture, dislocation or suspicious bony lesion. Glenohumeral and acromioclavicular alignment is anatomic with normal joint space. No abnormal soft tissue calcifications. XR/XR shoulder RT min 2V IMPRESSION: No acute findings Electronically signed by: Mikey Heaton MD 04/21/2025 11:27 AM [facility]
[2025-04-21 08:45] LABS: Appearance Urine Clear; Glucose Urine UA Negative (Negative); PH 5.5 (5.0-9.0); Specific Gravity - Urine 1.025 (1.005-1.025); UMIC TRIGGER UACC YES
[2025-04-21 09:04] LABS: Folate 12.5 ng/mL (> or = 4.0); Vitamin B12 1552 pg/mL (200-900)
[2025-04-21 14:01] LABS: Microalbum/Creatinine Ratio Ur 46.2 ug/mg cr (<30)
== END 2025-04-21 07:39 | disposition home or self-care (01) ==
LOC: HO.XRAY 07:38
PROVIDERS: PCP Physician Assistant Medical; Visit Provider Physician Assistant Medical
DX: Z00.00 Encounter for general adult medical examination without abnormal findings (principal); M25.511 Pain in right shoulder; E11.9 Type 2 diabetes mellitus without complications; R74.8 Abnormal levels of other serum enzymes
CPT/HCPCS: 36415; 73030; 81001; 82043; 82570; 82607; 82746

== ENCOUNTER → 2025-04-21 07:52 | Outpatient (BNV) | payer OTHER, SELFPAY | PROVIDERS: PCP Physician Assistant Medical; Visit Provider Radiology Diagnostic Ultrasound | DX: M25.511 Pain in right shoulder (principal) | CPT/HCPCS: 73030 ==

== ENCOUNTER 2025-05-01 09:37 | Outpatient (AMB) | payer OTHER, SELFPAY ==
--- NOTE | 2025-05-01 09:54 | AM.OFFWIN_ITS ---
Intake Vital Signs 05/01/25 10:03 Height 5 ft 3 in BP 130/72 Blood Pressure Location Lt brachial Position Sitting Pulse 73 Pulse Source Pulse Oximeter Temp 97.8 F Temp Source Oral Pulse Oximetry (%) 97 Oxygen Delivery Method Room Air Intake Visit Reasons: ep left upper side rib pain Patient Tobacco Use Status: Former Tobacco user Allergies bee pollen (BEE STINGS) Allergy (Severe, Verified 05/01/25 10:04) ANAPHYLAXIS meperidine (From DEMEROL) Allergy (Mild, Verified 05/01/25 10:04) VOMITING oxycodone (OXYCODONE) Allergy (Mild, Verified 05/01/25 10:04) VOMITING Do you need a note to return to daycare/school/sports/work: No HPI HPI Comments History of Present Illness Details 59 y/o female presents to the [facility] with left-sided chest wall pain x 3 days. She reports that one week ago she tripped and fell, landing on the edge of a chair. She felt immediate pain at the time of injury. Since then she?s had localized tenderness, worse with palpation and range of motion. Denies shortness of breath, wheezing, cough, headaches, chest pressure, or tightness. [facility] Medical History (Updated 05/01/25 @ 11:00 by Marce hCanel NP) Contusion of left chest wall Elevated vitamin B12 level Fall Right shoulder pain Underweight (BMI < 18.5) Hypertension General medical exam [place] (dyspnea on exertion) SOB (shortness of breath) Oral candidiasis Sciatica of left side Chronic low back pain Kidney stones Cervical radiculopathy BRCA positive IBS (irritable bowel syndrome) Anxiety Depression Establishing care with new doctor, encounter for Vitamin B12 deficiency Vitamin D deficiency Pure hypercholesterolemia, unspecified Restless leg syndrome Hx of migraines GERD (gastroesophageal reflux disease) History of 2019 novel coronavirus disease (COVID-19) Asthma Pulmonary nodule Surgical History History of esophagogastroduodenoscopy (EGD) (~11/29/21) Hx of colonoscopy (~11/29/21) Hx of tubal ligation History of femoral hernia repair (10/21/21) History of hysterectomy (2014) History of mastectomy (2014) Family History Sister Breast cancer Family/Other Lung cancer Breast cancer Family/Other Breast cancer Family/Other Breast cancer Paternal Aunt Breast cancer Ovarian cancer Mother Stroke Heart disease Asthma Emphysema lung COPD (chronic obstructive pulmonary disease) Diabetes Dementia Father Heart disease Social History Household Members: Spouse and Children Housing: House Are you a primary nurse behavioral health care to a significant other at home: Yes Do you presently have visiting nurse or other home services: No Alcohol intake: current Alcohol intake frequency: does not drink Patient Tobacco Use Status: Former Tobacco user service: No Current occupational status: employed Cognitive needs: No Hearing needs: No Vision needs: Yes (rx glasses) Review of Systems Const All systems reviewed & are unremarkable except as noted in HPI and below Physical Exam Vital Signs: Last Vital Signs Temp 97.8 F 05/01/25 10:03 Pulse 73 05/01/25 10:03 BP 130/72 05/01/25 10:03 Pulse Ox 97 05/01/25 10:03 Oxygen Delivery Method Room Air 05/01/25 10:03 Const Orientation/consciousness: patient oriented x3 Chest Other: Localized tenderness over left lateral chest wall. No visible deformity, ecchymosis, or swelling noted. Pain increased with movement and palpation. Breast tissue surgically absent. Resp Effort & Inspection: normal respiratory effort and able to speak in complete sentences Auscultation: clear to auscultation bilaterally, no crackles, no rales, no rhonchi and no wheezes Cardio Heart sounds: S1 normal heart sound present and S2 normal heart sound present Neuro General: patient oriented x3, gait normal and moves all extremities Psych Speech and movement: Normal speech and movement present Assessment & Plan Assessment & Plan (1) Contusion of left chest wall: Code(s): S20.212A - Contusion of left front wall of thorax, initial encounter Qualifiers: Encounter type: initial encounter Qualified Code(s): S20.212A - Contusion of left front wall of thorax, initial encounter Plan: Left chest wall contusion / possible rib contusion secondary to mechanical fall. No red-flag symptoms reported (SOB, chest tightness, respiratory distress). Physical exam consistent with superficial musculoskeletal injury. NSAIDs or Acetaminophen for pain relief. Warm compresses to affected area 15?20 min TID. Encourage deep breathing exercises to prevent atelectasis. Activity modification?avoid heavy lifting or movements that worsen pain. Return or go to ED for increasing SOB, chest tightness, fever, worsening pain, or new symptoms. Coding Level of Care Code Est Pt Level 4 (66773) Diagnoses Contusion of left chest wall, initial encounter S20.212A Encounter type: initial encounter Time Spent (min) 20
[2025-05-01 10:03] VITALS: BP 130/72; PULSE 73; TEMP 36.6; O2SAT 97
== END 2025-05-01 10:56 | disposition home or self-care (01) ==
PROVIDERS: PCP Physician Assistant Medical; Visit Provider Nurse Practitioner Family
DX: S20.212A Contusion of left front wall of thorax, initial encounter (principal)

== ENCOUNTER 2025-05-04 10:03 | Outpatient (AMB) | payer OTHER, SELFPAY ==
[2025-05-04 10:08] VITALS: BP 104/78; PULSE 73; O2SAT 98; BMI 16.8
--- NOTE | 2025-05-04 10:08 | A.OFFVIS_ITS ---
Vital Signs 3 05/04/25 10:08 Height 5 ft 3 in Weight 94 lb 12.78 oz BMI 16.8 BP 104/78 Blood Pressure Location Lt brachial Position Sitting Pulse 73 Pulse Source Pulse Oximeter Pulse Oximetry (%) 98 Oxygen Delivery Method Room Air Intake Visit Reasons: dyspnea Quantitative Analyst Developer Required: No Accompanied by: Self / Same As Patient Allergies bee pollen (BEE STINGS) Allergy (Severe, Verified 05/04/25 10:10) ANAPHYLAXIS meperidine (From DEMEROL) Allergy (Mild, Verified 05/04/25 10:10) VOMITING oxycodone (OXYCODONE) Allergy (Mild, Verified 05/04/25 10:10) VOMITING HPI Comments Details: The patient is a 59 year woman known history of breast cancer status post bilateral mastectomy follows closely with oncology. Apparently she was in usual state health until sometime in June she started developing worsening cough shortness of breath along with wheezing. She went to see her primary care doctor and was prescribed prednisone and antibiotics at this time. She was also having significant GI symptoms at the time. He was diagnosed initially with the flu. Her cough persisted and did not improved she continued having the shortness of breath she went back in received a 2nd course of antibiotics and prednisone. Her cough was better but then got worse again. She went for an x-ray was found to have pneumonia. I personally looked at the x-ray demonstrating fluffy areas of opacities suggesting a viral process. She was given another course of antibiotics and prednisone. Initially started getting better but again in September her symptoms again started getting worse worsening cough and shortness of breath. At the time was diagnosed with coronavirus so, COVID-19 infection as he works in the [employer]. She did come in she had an x-ray and subsequently a CT scan of the chest demonstrating nodular densities and ground- glass appearance suggesting pneumonitis inflammation. A based on other CT scans of the abdomen she has had back in the last few years it demonstrates that there is interval worsening of the pulmonary nodules. Although the cast risks is the nodules are different. On further questioning she did have mastectomy for her breast cancer did not use any hormonal therapies or chemotherapy or radiation therapy afterwards. She has been doing well and does follow closely with oncology. 10/2019 the patient is here for pulmonary follow-up visit. She is doing much better. She is tolerating the Symbicort and is helping her with her cough and shortness of breath. She does use it twice a day. She has noticed a little more congestion now with a heated humidity. She did undergo pulmonary function studies which demonstrated a significant response to bronchodilators and also a diffusion impairment. Her CT scan we also reviewed. It appears that her areas of ground-glass opacities did improved. She still has some redness of scarring in the right middle lobe secondary to her pneumonia. In addition to that she appears to have stable nodules when compared to her CT scan from September. Nodules measuring 3-4 mm in size. Patient will need a repeat CT scan specially with history of breast cancer. On examination she still having some wheezing. She knows to continue using the Symbicort for now in the rescue inhaler as needed. She is to call if her symptoms get any worse. 05/17/2020 the patient is here for pulmonary follow-up visit. She had been doing very well until recently about 3 weeks ago when she started again developing some shortness of breath and cough. She has noticed some chest tightness. She has been using her Symbicort which was initially helpful but not so much anymore. She is having to use her rescue inhaler. She has noticed some productive phlegm. In the meantime we did look at her CT scan of the chest that she had back in December demonstrating interval resolution of the ground-glass nodular opacities likely from the COVID-19 infection. She still has some underlying pulmonary nodules that appear to be stable when compared to the CT scan from September 2019. At this point she will need a CT scan for December 2020 a year from her last 1. She does have a history of breast cancer so therefore these nodules up to follow closely. We will also treated for an asthma exacerbation also at this time. 10/12/2020 the patient is here for pulmonary follow-up visit. It appears that her respiratory symptoms are significantly improved. She was able to stop all her respiratory inhalers. She denies any shortness of breath or coughing. She did get vaccinated for COVID-19 at this time. We did again look at her CT scan that she had back in the summer of 2019. She has underlying pulmonary nodules that need follow-up. Plan to follow-up sometime in December to follow-up with her CT scan of the chest the make sure that there is stability with the pulmonary nodules in view of her history of in her breast cancer. 01/21/2022 the patient is here for a pulmonary follow-up visit. Overall the patient appears to be doing well at this time. She has had some issues with breathing due to that he humidity. She had to start using her rescue inhaler once or twice a day. Now they symptoms have subsided to some degree. She has not required the Symbicort. The patient did have a recent CT scan of the chest. It appears that she does have a new 3 mm pulmonary nodule. Her other nodules appear to be stable. She has had a history of breast cancer. Therefore, these nodules need to be followed closely. The nodule is only 3 mm in size therefore we will plan to repeat the CT scan in a year's time. If any new symptoms arise or any worsening issues the patient is to call the office for an earlier evaluation. 01/25/2025 the patient i here to be seen again as a new patient since it has been several years. The patient had been in usual state health until recently when she started developing worsening cough chest congestion. She went to the ER sometime in late November. She did have imaging studies including a CT scan of the chest that I personally reviewed demonstrating a masslike consolidation the right middle lobe. Along with that she did have pulmonary nodules bilaterally and some evidence of chronic bronchitis. The patient also had prosthesis done that she had a bilateral radical mastectomy after being diagnosed with a BRCA gene. The patient was placed on antibiotics and subsequent repeat CAT scan was done just a few days ago. I did personally review that CAT scan demonstrating significant decrease in the masslike density in the right middle lobe now measuring only about 8 mm in size. Therefore likely infectious process although she has other pulmonary nodules that need to be followed. Will plan to repeat a CAT scan in a 10-12 weeks to make sure that we seek full resolution of this process. In the meantime I did provide her with an Acapella valve to help with the chronic bronchitis and mucus plugging. The patient already uses inhalers with good effect. The patient has not gotten any any vaccines. She needs to get a pneumonia vaccine. Hopefully the patient can provide us also with a sputum culture. Will follow-up in [address] scan and we can also follow-up with a sputum cultures. If she has any issues or concerns she can always call. 05/04/2025 the patient is here for pulmonary follow-up visit. The patient overall is feeling well. She is using her Symbicort twice a day. In addition to that she has a rescue inhaler that she has not required. The patient did have a fall hurting her right shoulder. She did have x-rays and get that evaluated. Still bothering her. If not better she is going to follow-up back with primary care. In the meantime the patient did have a CT scan of the chest back in January which we personally reviewed and also compared to the CAT scan she had previously in December. It appeared that the masslike density in the right middle lobe subsided now breaking up. She also has other pulmonary nodules that need follow-up. She will have a CAT scan sometime early 2025. The patient will continue to use her respiratory therapy as prescribed. If the patient has any worsening issues she can always call for further recommendations. Otherwise will see her after her next CAT scan. [facility] Medical History (Updated 05/04/25 @ 20:12 by Celso Delgado MD) Contusion of left chest wall Elevated vitamin B12 level Fall Right shoulder pain Underweight (BMI < 18.5) Hypertension General medical exam [place] (dyspnea on exertion) SOB (shortness of breath) Oral candidiasis Sciatica of left side Chronic low back pain Kidney stones Cervical radiculopathy BRCA positive IBS (irritable bowel syndrome) Anxiety Depression Establishing care with new doctor, encounter for Vitamin B12 deficiency Vitamin D deficiency Pure hypercholesterolemia, unspecified Restless leg syndrome Hx of migraines GERD (gastroesophageal reflux disease) History of 2019 novel coronavirus disease (COVID-19) Asthma Pulmonary nodule Surgical History History of esophagogastroduodenoscopy (EGD) (~11/29/21) Hx of colonoscopy (~11/29/21) Hx of tubal ligation History of femoral hernia repair (10/21/21) History of hysterectomy (2014) History of mastectomy (2014) Family History Sister Breast cancer Family/Other Lung cancer Breast cancer Family/Other Breast cancer Family/Other Breast cancer Paternal Aunt Breast cancer Ovarian cancer Mother Stroke Heart disease Asthma Emphysema lung COPD (chronic obstructive pulmonary disease) Diabetes Dementia Father Heart disease Social History Household Members: Spouse and Children Housing: House Are you a primary home care provider to a significant other at home: Yes Do you presently have visiting nurse or other home services: No Alcohol intake: current Alcohol intake frequency: does not drink Patient Tobacco Use Status: Former Tobacco user service: No Current occupational status: employed Cognitive needs: No Hearing needs: No Vision needs: Yes (rx glasses) Review of Systems Const Denies night sweats and Denies weight loss ENT Denies change in voice, Denies lip swelling, Denies mouth pain, Reports nasal congestion, Reports nasal discharge and Denies tongue swelling Card Denies chest pain and Denies dyspnea Resp Reports cough, Denies dyspnea and Denies wheezing GI Denies abdominal pain Musc Denies no additional complaints Neuro Denies Neuro-related abnormal movements Psych Denies no additional complaints Kt/Lymph Denies easy bleeding and Denies lymphadenopathy Aller/Immun Denies lip swelling, Denies tongue swelling and Denies wheezing Physical Exam Vital Signs: Last Vital Signs Pulse 73 05/04/25 10:08 BP 104/78 05/04/25 10:08 Pulse Ox 98 05/04/25 10:08 Oxygen Delivery Method Room Air 05/04/25 10:08 BMI result Body Mass Index 16.8 Const General: alert HEENT Head: Yes normocephalic Neck Neck: Yes normal visual inspection, Yes full ROM and Yes no lymphadenopathy Chest Chest palpation & inspection: normal inspection of the chest Resp Effort & Inspection: normal respiratory effort Auscultation: no wheezes and diminished lung sounds Cardio Rate: regular rate Rhythm: regular rhythm Heart sounds: S1 normal heart sound present and S2 normal heart sound present GI Palpation (GI): Soft to palpation and nontender Auscultation: normal bowel sounds Skin General skin exam: rashes and/or lesions noted Results Reviewed Results Reviewed: Assessment & Plan Assessment & Plan (1) Asthma: Code(s): J45.909 - Unspecified asthma, uncomplicated Category: Medical Qualifiers: Asthma complication type: with acute exacerbation Asthma persistence: p ersistent Asthma severity: moderate Qualified Code(s): J45.41 - Moderate persistent asthma with (acute) exacerbation (2) Pulmonary nodule: Comment: Has a new 3 mm pulmonary nodule noted on her last CT scan from November 2021. Other nodules appear to be stable. Code(s): R91.1 - Solitary pulmonary nodule Category: Medical (3) Lung mass: Comment: decreased Code(s): R91.8 - Other nonspecific abnormal finding of lung field Category: Medical Plan Symbicort Continue short-acting beta agonist as needed CPT with acapella valve Repeat CT scan of the chest 6 months Follow-up 6 months or sooner if any symptoms worsen Orders: Orders 2 CT chest wo IV con 08/21/25 R91.1 - Solitary pulmonary nodule Coding Level of Care Code Complex visit Add On G2211 Diagnoses Moderate persistent asthma with acute exacerbation J45.41 Asthma complication type: with acute exacerbation Asthma persistence: persistent Asthma severity: moderate Pulmonary nodule R91.1 Lung mass R91.8 Time Spent (min) 17
== END 2025-05-04 16:11 | disposition home or self-care (01) ==
LOC: HO.HPS 10:03
PROVIDERS: PCP Internal Medicine; Visit Provider Hospitalist
DX: J45.41 Moderate persistent asthma with (acute) exacerbation (principal); R91.1 Solitary pulmonary nodule; R91.8 Other nonspecific abnormal finding of lung field
CPT/HCPCS: 99214; G2211

== ENCOUNTER 2025-05-12 07:38 | Emergency (ER) | payer OTHER, SELFPAY ==
--- NOTE | ~2025-05-12 | XR_ITS ---
EXAMINATION: XR HIP 1 VIEW LEFT WITH PELVIS HISTORY: L hip pain s/p fall COMPARISON: There are no prior studies available for comparison. FINDINGS: A single AP view of the pelvis and two views of the left hip are submitted. Osseous mineralization is normal. There is no fracture or dislocation. There is mild bilateral joint space narrowing. There is degenerative disc disease and levoscoliosis of the lumbar spine. The soft tissues are unremarkable. XR/XR hip LT w PEL1V IMPRESSION: Mild joint space narrowing. Electronically signed by: Yimi Leach MD 05/12/2025 09:03 AM [facility]
[2025-05-12 07:44] VITALS: BP 134/62; PULSE 66; RESP 16; TEMP 37; O2SAT 99; BMI 14.9
--- NOTE | 2025-05-12 08:40 | ED.LOWEXIN ---
HPI - Extremity Injury (Lower) General Chief Complaint: Extremity Injury, Lower Stated Complaint: Left hip pain Time Seen by Provider: 05/12/25 08:37 Source: patient Mode of arrival: ambulatory Limitations: no limitations History of Present Illness ED Provider: YAZMIN JIM PA-C HPI Narrative: 59 y/o female with hx migraines presents to the ED today for evaluation of left hip pain x1 month. Reports she fell and injured her right shoulder a month ago but denies involvement of her hip at that that time. Is unsure of mechanism of injury. Pain begins 15-20 minutes after waking up and worsens throughout the day. Describes the pain as dull and constant at baseline with intermittent burning and radiation to the upper thigh and groin. Worsens with palpation. She has been taking motrin at home with temporary improvement in pain. Has not been seen or had imaging for this before. Denies right hip or leg pain, urinary symptoms, abdominal symptoms, saddle parastesias, fevers, new headaches, back pain, or left knee or ankle pain. Former smoker, quit 5 years ago. 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 Related Data Home Medications ?Medication ?Instructions ?Recorded ?Confirmed albuterol sulfate 2.5 mg/3 mL 2.5 mg inhalation DAILY 05/17/20 04/13/25 (0.083 %) solution for nebulization multivitamin 1 tab PO DAILY 05/17/20 04/13/25 Previous Rx's ?Medication ?Instructions ?Recorded budesonide-formoterol HFA 160 2 puff inhalation BID 30 days 10/05/24 mcg-4.5 mcg/actuation aerosol #10.2 grams inhaler (Symbicort) cholecalciferol (vitamin D3) 50 50 mcg PO DAILY #90 tabs 10/28/24 mcg (2,000 unit) tablet atorvastatin 80 mg tablet 80 mg PO DAILY #90 tabs 11/24/24 pantoprazole 40 mg tablet,delayed 40 mg PO DAILY #90 tabs 02/09/25 release levalbuterol tartrate 45 1 puff PO Q6H PRN for dyspnea #15 02/20/25 mcg/actuation aerosol inhaler grams duloxetine 60 mg capsule,delayed 60 mg PO DAILY #90 caps 02/22/25 release propranolol 160 mg capsule,24 160 mg PO DAILY #90 caps 03/20/25 hr,extended release fremanezumab-vfrm 225 mg/1.5 mL See Rx Instructions .Route 04/05/25 subcutaneous auto-injector (Ajovy) .COMPLEX #4.5 mL lisinopril 5 mg tablet 5 mg PO DAILY #90 tabs 04/21/25 naproxen 500 mg tablet 500 mg PO BID PRN pain (scale 05/12/25 score 4-6) #30 tabs Allergies Allergy/AdvReac Type Severity Reaction Status Date / Time bee pollen (BEE STINGS) Allergy Severe ANAPHYLAXIS Verified 05/12/25 07:45 meperidine (From DEMEROL) Allergy Mild VOMITING Verified 05/12/25 07:45 oxycodone (OXYCODONE) Allergy Mild VOMITING Verified 05/12/25 07:45 Review of Systems Review of Systems: Yes all other systems are reviewed and are negative PMFSH Past Medical History Attestation statement: The following information was validated with the patient. Source: old records reviewed and nursing notes reviewed Medical History Contusion of left chest wall Elevated vitamin B12 level Fall Right shoulder pain Underweight (BMI < 18.5) Hypertension General medical exam [place] (dyspnea on exertion) SOB (shortness of breath) Oral candidiasis Sciatica of left side Chronic low back pain Kidney stones Cervical radiculopathy BRCA positive IBS (irritable bowel syndrome) Anxiety Depression Establishing care with new doctor, encounter for Vitamin B12 deficiency Vitamin D deficiency Pure hypercholesterolemia, unspecified Restless leg syndrome Hx of migraines GERD (gastroesophageal reflux disease) History of 2019 novel coronavirus disease (COVID-19) Asthma Pulmonary nodule Surgical History History of esophagogastroduodenoscopy (EGD) (~11/29/21) Hx of colonoscopy (~11/29/21) Hx of tubal ligation History of femoral hernia repair (10/21/21) History of hysterectomy (2014) History of mastectomy (2014) Family History Family History Sister Breast cancer Family/Other Lung cancer Breast cancer Family/Other Breast cancer Family/Other Breast cancer Paternal Aunt Breast cancer Ovarian cancer Mother Stroke Heart disease Asthma Emphysema lung COPD (chronic obstructive pulmonary disease) Diabetes Dementia Father Heart disease Social History Social History Household Members: Spouse and Children Housing: House Are you a primary resident care provider to a significant other at home: Yes Do you presently have visiting nurse or other home services: No Alcohol intake: current Alcohol intake frequency: does not drink Patient Tobacco Use Status: Former Tobacco user Advance Directives: No Advance Directives Information Provided: Yes service: No Current occupational status: employed Cognitive needs: No Hearing needs: No Vision needs: Yes (rx glasses) Physical Exam Vital Signs: Vital Signs: Last Vital Signs Temp 98.6 F 05/12/25 07:44 Pulse 66 05/12/25 07:44 Resp 16 05/12/25 07:44 BP 134/62 05/12/25 07:44 Pulse Ox 99 05/12/25 07:44 O2 Del Method Room Air 05/12/25 07:44 BMI result Body Mass Index 14.9 vital signs stable General: Well appearing, in no acute distress. Skin: Warm, dry, intact. No rashes or lesions. Head: Normocephalic, atraumatic. EENT: Hearing is intact b/l. Conjunctiva clear. PERRLA. EOM intact. Moist mucous membranes.? Neck: Supple without LAD Cardiac: Chest wall symmetric. RRR Lungs: Normal respiratory effort without accessory muscle use. CTA bilaterally Abdomen: Soft, non-tender, non-distended. No rebound tenderness or guarding. Positive BS x4. Back: No midline spinous or paraspinal tenderness. No step off deformity. Ext: +ttp over left ASIS, no palpable deformity/crepitus/fluctuance, no reported pain w/ ROM of left hip. negative straight leg raise. no calf tenderness. no pitting edema. Neuro: AOx3. Normal speech. Strength 5/5 intact throughout. No saddle anesthesia. Sensation intact to light touch. NV intact distally. Ambulating with steady gait. Psych: Appropriate mood and affect. Responds appropriately to questions. Course Course Course Narrative: XR L hip/pelvis unremarkable. She has no reported pain with ROM of left hip. No difficulty with ROM to left hip. She has point tenderness over left ASIS. I do not have concern for DVT. Will treat w/ NSAIDs and have patient f/u with her PCP. Patient has remained stable throughout ED visit today. Discussed worrisome signs and symptoms and when to return to the ED. All questions answered at this time. Patient is agreeable with disposition and stable for discharge. Medications Administered Discontinued Medications Generic Name Dose Route Start Last Admin Trade Name Constantino PRN Reason Stop Dose Admin Ibuprofen 800 mg 05/12/25 09:14 05/12/25 09:40 Ibuprofen 800 Mg Tablet PO 05/12/25 09:15 800 mg ONCE ONE Administration Medical Decision Making Medical Decision Making MDM Narrative: 59 y/o female with hx migraines presents to the ED today for evaluation of left hip pain x1 month. Her vitals are stable. she is well appearing and in NAD. on exam, ttp over left ASIS, no palpable deformity/crepitus/fluctuance, no reported pain w/ ROM of left hip. negative straight leg raise. no calf tenderness. no pitting edema. Differential diagnosis includes sciatica, arthritis, RA, bursitis, tendonitis, contusion, fracture Unlikely DVT, nv compromise, threat to limb, compartment syndrome. Plan for xrays, pain control, re-evaluation. Differential Diagnosis Differential Diagnoses: The differential diagnosis associated with the presentation includes as above. Admission/Observation not indicated. Independent Interpretation I performed an independent interpretation of an: Plain X-Ray Interpretation: xr L hip without fracture Radiology Impression Discussion of test interpretation with radiology: I have reviewed the radiologist's reading. Radiologist Impression: Procedure(s): XR hip LT w PEL1V Accession Number(s): [id number] cc: Jo-Ann Koch PA-C; Yazmin Jim~ Reason for Exam: L hip pain s/p fall EXAMINATION: XR HIP 1 VIEW LEFT WITH PELVIS HISTORY: L hip pain s/p fall COMPARISON: There are no prior studies available for comparison. FINDINGS: A single AP view of the pelvis and two views of the left hip are submitted. Osseous mineralization is normal. There is no fracture or dislocation. There is mild bilateral joint space narrowing. There is degenerative disc disease and levoscoliosis of the lumbar spine. The soft tissues are unremarkable. XR/XR hip LT w PEL1V IMPRESSION: Mild joint space narrowing. Electronically signed by: Yimi Leach MD 05/12/2025 09:03 AM [facility] External Record Review External record reviewed: Inpatient record Prescription Management I considered prescription management with: Pain Medication (naproxen) Social Determinants Patient?s care significantly limited by Social Determinants of Health including: Other Social Determinant of Health Critical Care Time Critical Care Time Critical Care Time: No Discharge Plan Discharge Clinical Impression: Left hip pain Patient Disposition: Home, Self-Care Instructions: Hip Pain (ED) Additional Instructions: You were evaluated in the ED today for your left hip pain. The xrays of your left hip/pelvis show osteoarthritic changes. I am prescribing you naproxen, an NSAID, for pain control. Do not take this with other NSAIDs such as motrin/ibuprofen as this can cause an increase risk of GI bleeding. Follow up with your primary care provider. Return with any new or worsening symptoms. In the case of an emergency call 911. Prescriptions: New naproxen 500 mg tablet 500 mg PO BID PRN (Reason: pain (scale score 4-6)) Qty: 30 0RF No Action cholecalciferol (vitamin D3) 50 mcg (2,000 unit) tablet 50 mcg PO DAILY Qty: 90 1RF atorvastatin 80 mg tablet 80 mg PO DAILY Qty: 90 1RF pantoprazole 40 mg tablet,delayed release (DR/EC) 40 mg PO DAILY Qty: 90 3RF levalbuterol tartrate 45 mcg/actuation HFA aerosol inhaler 1 puff PO Q6H PRN (Reason: for dyspnea) Qty: 15 3RF duloxetine 60 mg capsule,delayed release(DR/EC) 60 mg PO DAILY Qty: 90 1RF propranolol 160 mg capsule,extended release 24 hr 160 mg PO DAILY Qty: 90 3RF Ajovy Autoinjector 225 mg/1.5 mL auto-injector See Rx Instructions .ROUTE .COMPLEX Qty: 4.5 0RF Dose Instruction: ADMINISTER 3 CONSECUTIVE 225MG INJECTIONS EVERY 3 MONTHS Rx Instructions: ADMINISTER 3 CONSECUTIVE 225MG INJECTIONS EVERY 3 MONTHS lisinopril 5 mg tablet 5 mg PO DAILY Qty: 90 3RF multivitamin Tablet 1 tab PO DAILY albuterol sulfate 2.5 mg /3 mL (0.083 %) solution for nebulization 2.5 mg inhalation DAILY budesonide-formoterol [Symbicort] 160-4.5 mcg/actuation HFA aerosol inhaler 2 puff inhalation BID 30 Days Qty: 10.2 11RF Referrals: Jo-Ann Koch PA-C [Primary Care Provider, Internal Medicine] Print Language: Uzbek
[2025-05-12 10:00] VITALS: BP 141/65; PULSE 56; RESP 16; TEMP 37.2; O2SAT 97
== END 2025-05-12 10:01 | disposition home or self-care (01) ==
PROVIDERS: Emergency Provider Emergency Medicine; PCP Physician Assistant Medical
DX: M25.552 Pain in left hip (principal)
CPT/HCPCS: 73502; 99283; 99284

== ENCOUNTER → 2025-05-12 08:41 | Outpatient (BNV) | payer OTHER, SELFPAY | PROVIDERS: Emergency Provider Emergency Medicine; PCP Physician Assistant Medical; Visit Provider Radiology Diagnostic Radiology | DX: M16.12 Unilateral primary osteoarthritis, left hip (principal) | CPT/HCPCS: 73502 ==

== ENCOUNTER 2025-05-19 13:24 | Outpatient (AMB) | payer OTHER, SELFPAY ==
--- NOTE | 2025-05-19 13:29 | A.OFFPC_ITS ---
Vital Signs 05/19/25 13:30 Height 5 ft 3 in Weight 93 lb BMI 16.5 BP 131/60 Blood Pressure Location Rt brachial Position Sitting Respiration 16 Pulse 58 Pulse Source Pulse Oximeter Temp 97.2 F Temp Source Temporal Artery Scan Pulse Oximetry (%) 99 Oxygen Delivery Method Room Air Intake Visit Reasons: [facility] Discharge Developer Automatic Required: No Accompanied by: Self / Same As Patient Allergies bee pollen (BEE STINGS) Allergy (Severe, Verified 05/19/25 14:14) ANAPHYLAXIS meperidine (From DEMEROL) Allergy (Mild, Verified 05/19/25 14:14) VOMITING oxycodone (OXYCODONE) Allergy (Mild, Verified 05/19/25 14:14) VOMITING Medication List - Last Reconciled 05/19/25 by Jo-Ann Koch PA-C albuterol sulfate 2.5 mg inhalation DAILY atorvastatin 80 mg PO DAILY budesonide-formoterol 160-4.5 mcg/actuation (Symbicort) 2 puffs inhalation BID 30 days cholecalciferol (vitamin D3) 50 mcg PO DAILY cyclobenzaprine 10 mg PO TID diclofenac sodium 1% (Voltaren Arthritis Pain) 4 grams topical QID duloxetine 60 mg PO DAILY fremanezumab-vfrm (Ajovy) ADMINISTER 3 CONSECUTIVE 225MG INJECTIONS EVERY 3 MONTHS levalbuterol tartrate 45 mcg/actuation 1 puff PO Q6H PRN lisinopril 5 mg PO DAILY multivitamin 1 tab PO DAILY oxycodone-acetaminophen 5-325 mg (Percocet) 1 tab PO Q8H PRN pantoprazole 40 mg PO DAILY propranolol ER 160 mg PO DAILY Tobacco use date assessed: 04/13/25 Dental Screening Dental Screen Date: 10/05/24 HPI HPI Comments History of Present Illness Details History of Present Illness The patient is a 59 year old female presenting with severe left leg pain. The pain began approximately one week ago around Thanksgiving and is constant, occurring whether she is sitting, standing, or moving. She describes the pain as excruciating, rated at a level 8 out of 10 at all times, and it is located predominantly in her upper leg and hip area, worsening to the point of tears by the end of the day. The pain quality is described as a painful, stinging sensation over a vein, sometimes with a numb and tingly feeling, and feels internal. She recently visited the emergency room for this issue, where an X-ray of her left hip was performed and showed no fracture or dislocation but did reveal mild bilateral joint space narrowing, degenerative disc disease, and scoliosis of the lumbar spine. She was prescribed naproxen in the ER, which she took twice and vomited on both occasions, even after eating. Relevant history includes a fall about six weeks ago where she landed on her shoulder. She has a family history of vascular issues, with her mother and sister having had clotting disorders. She is a former smoker and has taken Percocet in the past without any issues. Social History - Substance Use: The patient is a former smoker. [facility] Medical History Encounter for assessment for deep vein thrombosis (DVT) Left leg pain Contusion of left chest wall Elevated vitamin B12 level Fall Right shoulder pain Underweight (BMI < 18.5) Hypertension General medical exam [place] (dyspnea on exertion) SOB (shortness of breath) Oral candidiasis Sciatica of left side Chronic low back pain Kidney stones Cervical radiculopathy BRCA positive IBS (irritable bowel syndrome) Anxiety Depression Establishing care with new doctor, encounter for Vitamin B12 deficiency Vitamin D deficiency Pure hypercholesterolemia, unspecified Restless leg syndrome Hx of migraines GERD (gastroesophageal reflux disease) History of 2019 novel coronavirus disease (COVID-19) Asthma Pulmonary nodule Surgical History History of esophagogastroduodenoscopy (EGD) (~11/29/21) Hx of colonoscopy (~11/29/21) Hx of tubal ligation History of femoral hernia repair (10/21/21) History of hysterectomy (2015) History of mastectomy (2015) Family History Sister Breast cancer Family/Other Lung cancer Breast cancer Family/Other Breast cancer Family/Other Breast cancer Paternal Aunt Breast cancer Ovarian cancer Mother Stroke Heart disease Asthma Emphysema lung COPD (chronic obstructive pulmonary disease) Diabetes Dementia Father Heart disease Social History Household Members: Spouse and Children Housing: House 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 1. Little interest or pleasure in doing things: not at all 2. Feeling down, depressed, or hopeless: not at all 3. Trouble falling or staying asleep, or sleeping too much: not at all 4. Feeling tired or having little energy: not at all 5. Poor appetite or overeating: not at all 6. Feeling bad about yourself - or that you are a failure or have let yourself or your family down: not at all 7. Trouble concentrating on things, such as reading the newspaper or watching television: not at all 8. Moving or speaking so slowly that other people could have noticed. Or the opposite - being so fidgety or restless that you have been moving around a lot more than usual: not at all 9. Thoughts that you would be better off or of hurting yourself in some way: not at all Total score: 0 Depression Screening Interpretation: Negative Depression Screening Done: Yes 16332 - PHQ-9 Billing: Yes Source: Developed by Drs. Yimi Vasquez, Karla Wilson, Florencio Zimmer and colleagues, with an educational faisal from [employer]. Thrive Questionnaire Date Thrive assessed: 10/05/24 I am a: Patient What is your living situation today?: I have a steady place to live Within the past 12 months, did the food you bought not last and you didn't have the money to get more?: Never true Within the past 12 months, did you worry whether your food would run out before you got money to buy more?: Never true Do you have trouble paying for medicines?: No Do you have trouble getting transportation to medical appointments?: No Do you have trouble paying your heating and electricity bill?: No Do you have trouble taking care of your child, family member or friend?: No Do you have trouble with day-to-day activities such as bathing, preparing meals, shopping, managing finances, etc.?: No Are you currently unemployed and looking for a job?: No Are you interested in more education?: No Please select the resources that you would like help with: None THRIVE Score: 0 AUDIT C Alcohol Use Questionnaire (AUDIT-C) 1. How often do you have a drink containing alcohol?: Never 3. How often do you have six or more drinks on one occasion?: Never Total Score: 0 Score Reviewed/Action Taken: No NELIDA-7 AMB Questionnaire NELIDA-7 Date NELIDA - 7 assessed: 10/05/24 Feeling nervous, anxious, or on edge: 1 = Several days Not being able to stop or control worryin = Nearly every day Worrying too much about different things: 2 = More than half the days Trouble relaxin = Nearly every day Being so restless that it is hard to sit still: 3 = Nearly every day Becoming easily annoyed or irritable: 0 = Not at all Feeling afraid as if something awful might happen: 0 = Not at all Total NELIDA-7 score (0-4 normal; 5-9 mild; 10-14 moderate; 15-21 severe): 12 Source: Developed by Drs. Yimi Vasquez, Karla Wilson, Florencio Zimmer and colleagues, with an educational faisal from [employer]. NELIDA-7 Assessment Billing NELIDA-7 Assessment Tool: NELIDA-7 Assessment 88873 Review of Systems Narrative Review of Systems - Musculoskeletal: Reports severe, constant, excruciating left leg and hip pain for about one week, rated 8/10. - Neurological: Reports numbness and tingling in the affected area of the left leg. - Constitutional: Denies heat in the affected leg. - Integumentary: Denies swelling in the leg. - Gastrointestinal: Reports vomiting after taking naproxen. - General: Reports pain interferes with sleep. Const All systems reviewed & are unremarkable except as noted in HPI and below Physical exam (Primary Care) Vital Signs: Last Vital Signs Temp 97.2 F 05/19/25 13:30 Pulse 58 05/19/25 13:30 Resp 16 05/19/25 13:30 BP 131/60 05/19/25 13:30 Pulse Ox 99 05/19/25 13:30 Oxygen Delivery Method Room Air 05/19/25 13:30 Care Plan Goal for BP management: <140/90 at Goal BMI result Body Mass Index 16.5 BMI Assessment/Plan discussion: Low BMI Low, Plan discussed: lifestyle, increase calorie intake, dietary and other Tobacco/Smoking Status: Tobacco use Status Tobacco use date assessed 04/13/25 05/19/25 13:38 Patient Tobacco Use Status Former Tobacco user 05/19/25 13:38 PHQ-9: PHQ-9 Score PHQ-9: Total score 0 05/19/25 13:38 Depression Screening Interpretation: Negative Thrive Assessment: Date of Thrive Assessment Date Thrive assessed 10/05/24 05/19/25 13:38 Narrative Physical Exam Appearance: Alert. Oriented X3. No acute distress. Head: Normal external exam. Normocephalic. Atraumatic. Eyes: Pupils are equal, round, and reactive to light. Extraocular movements intact. Conjunctiva and sclera normal. Eyelids normal. Throat: Pharynx normal. Uvula midline. Moist mucous membranes. Neck: Normal inspection. Neck supple. Full range of motion. Cardiovascular: Normal heart rate and rhythm. Pulses normal throughout. Respiratory: No respiratory distress. Painless inspiration. Back: No costovertebral angle tenderness. Full range of motion noted. Skin: Skin warm and dry. Normal skin color. Normal skin turgor. No rashes/lesions/lacerations noted. Extremities: No lower extremity edema. Extremities exhibit normal range of motion. Pain noted in the left leg, particularly in the hip area, with excruciating pain internally. No swelling or heat observed. Color of toes and leg appears normal. No cyanosis noted. Normal capillary refill. Normal pulses noted. Normal range of motion noted. No calf tenderness is noted bilaterally. No rashes, signs of infection, induration, fluctuance noted at this time. Neuro: Oriented X 3. No motor deficit. No sensory deficit. Reflexes normal. Pain described as numb and tingly in certain areas of the left leg. Office Meds ketorolac 60 mg/2 mL intramuscular solution Performing Provider: Jo-Ann Koch PA-C [facility] Administered by: Jo-Ann Koch PA-C on 05/19/25 14:23 Dose Route Admin Location Dispensed Lot Number Expiration Date [facility] Wet Finisher 60 mg IM left dletoid 2 mL [id number] 06/14/25 78974-283-30 Netpulse 2 mg IM 2 mL Total Dispensed Waste 4 mL 0 % dexamethasone sodium phosphate 10 mg/mL injection solution Performing Provider: Jo-Ann Koch PA-C Performing [facility] Administered by: Jo-Ann Koch PA-C on 05/19/25 14:25 Dose Route Admin Location Dispensed Lot Number Expiration Date [facility] Wet Finisher 4 mg IM 1 mL [id number] 06/14/25 78269-120-85 Results Reviewed Results Reviewed: - Imaging: A recent ER left hip X-ray showed no fracture or dislocation, mild bilateral joint space narrowing, degenerative disc disease, and scoliosis of the lumbar spine; soft tissues were unremarkable. Coding Level of Care Code Est Pt Level 4 (25820) Complex visit Add On G2211 Diagnoses Left leg pain M79.605 Additional Codes NELIDA-7 Assessment Billing - NELIDA-7 Assessment Tool: NELIDA-7 Assessment 77831 ([id number]) PHQ-9 - 71947 - PHQ-9 Billing: Yes ([id number]) Assessment & Plan Assessment & Plan (1) Left leg pain: Code(s): M79.605 - Pain in left leg Category: Medical Plan: The patient's severe left leg and hip pain is of unclear etiology. Differential diagnoses include occult hip fracture, given the fall history, and deep vein thr ombosis (DVT), given the family history of clotting disorders, although she lacks typical signs of DVT like swelling or heat. An urgent venous ultrasound of the left leg is ordered to rule out DVT. A non- urgent CT scan of the hip will be ordered to assess for a possible hairline fracture not visible on the initial X-ray. Additional X-rays of the left femur, tibia/fibula, and a repeat of the hip/pelvis will be ordered for a comprehensive evaluation. For pain management, the patient received an intramuscular injection of Toradol and Decadron in the office. Prescriptions were sent for Percocet (20 tablets), Flexeril, and topical Voltaren cream. The patient was counseled not to drive or drink alcohol while taking the narcotic and muscle relaxer and to avoid further NSAIDs today due to the Toradol injection. The patient was instructed to call scheduling to arrange the urgent ultrasound and was advised on the timeline for other imaging. She will follow up as needed and contact the office if her pain worsens or if she requires another injection. Plan Plan Patient was informed and verbally consented to the use of an ambient scribe for clinic note documentation during this visit. 1. Left Leg And Hip Pain The patient's severe left leg and hip pain is of unclear etiology. Differential diagnoses include occult hip fracture, given the fall history, and deep vein thrombosis (DVT), given the family history of clotting disorders, although she lacks typical signs of DVT like swelling or heat. An urgent venous ultrasound of the left leg is ordered to rule out DVT. A non- urgent CT scan of the hip will be ordered to assess for a possible hairline fracture not visible on the initial X-ray. Additional X-rays of the left femur, tibia/fibula, and a repeat of the hip/pelvis will be ordered for a comprehensive evaluation. For pain management, the patient received an intramuscular injection of Toradol and Decadron in the office. Prescriptions were sent for Percocet (20 tablets), Flexeril, and topical Voltaren cream. The patient was counseled not to drive or drink alcohol while taking the narcotic and muscle relaxer and to avoid further NSAIDs today due to the Toradol injection. The patient was instructed to call scheduling to arrange the urgent ultrasound and was advised on the timeline for other imaging. She will follow up as needed and contact the office if her pain worsens or if she requires another injection. Discussion Notes I explained to the patient that while her ER X-ray was negative, a hairline fracture can sometimes be missed, which is why I am ordering a more specific CT scan of her hip, especially given her recent fall. I also discussed that ruling out a blood clot is a priority due to the seriousness of the condition and her family history, which necessitates an urgent ultrasound of her leg. I also ordered new X-rays of her entire leg to ensure nothing is missed, as fractures can sometimes become more apparent on imaging after a few days. For pain relief, I administered an injection of Toradol and Decadron to help with inflammation and pain immediately. I outlined a multi-faceted treatment plan with prescriptions for Percocet for severe pain, Flexeril as a muscle relaxant, and topical Voltaren cream. I legally advised her not to drink alcohol or drive while taking the narcotic or muscle relaxant. I provided her with the number for centralized scheduling to arrange the urgent ultrasound and informed her they would receive the orders for the other imaging. I let her know that I will call her with any results from the imaging studies. I advised her to call if the pain worsens or if she feels she needs another injection before the weekend is over. Orders: Orders US venous duplex LE LT Today M79.605 - Pain in left leg, Z76.89 - Persons encountering health services in other specified circumstances XR tibia fibula LT 2V Today M79.605 - Pain in left leg, W19.XXXA - Unspecified fall, initial encounter CT hip LT wo IV con Today M79.605 - Pain in left leg, W19.XXXA - Unspecified fall, initial encounter XR femur LT 2V Today M79.605 - Pain in left leg, W19.XXXA - Unspecified fall, initial encounter XR hip LT w PEL1V Today M79.605 - Pain in left leg, W19.XXXA - Unspecified fall, initial encounter AMB Ketorolac Injection Today M79.605 - Pain in left leg, W19.XXXA - Unspecified fall, initial encounter Injection-Dexamethasone Today M79.605 - Pain in left leg, W19.XXXA - Unspecified fall, initial encounter Medications: New diclofenac sodium 1% (Voltaren Arthritis Pain) apply to single knee, ankle, foot; for foot includes sole/toes/top of foot 4 grams topical QID 100 grams 3RF oxycodone-acetaminophen 5-325 mg (Percocet) Partial Fill upon patient request. 1 tab PO Q8H PRN 20 tabs 0RF pain cyclobenzaprine 10 mg PO TID 30 tabs 0RF Patient Instructions: Patient Instructions - You have received an injection for pain and inflammation. - Do not take any more ibuprofen or Motrin today. - telemarketing supervisor your prescriptions for Percocet, Flexeril, and Voltaren cream at the [facility]. - Apply the Voltaren cream to the most painful part of your leg. - Do not drink alcohol or drive while taking Percocet or Flexeril. - Call the centralized scheduling phone number provided to you to schedule an urgent ultrasound of your leg. - You may go for your new X-rays of your hip and leg at any time. - The scheduling department will call you within two to three weeks to schedule your CT scan. - If the pain gets worse, please contact our office. - If you feel the injection helped and you need another one on Thursday, call the office and we will fit you in for an injection. - We will call you with the results of your X-rays and ultrasound.
[2025-05-19 13:30] VITALS: BP 131/60; PULSE 58; RESP 16; TEMP 36.2; O2SAT 99; BMI 16.5
== END 2025-05-19 14:07 | disposition home or self-care (01) ==
LOC: HO.HMCSH 13:24
PROVIDERS: PCP Physician Assistant Medical; Visit Provider Physician Assistant Medical
DX: M79.605 Pain in left leg (principal); W19.XXXA Unspecified fall, initial encounter

== ENCOUNTER → 2025-05-19 13:24 | Outpatient (BNVA) | payer OTHER, SELFPAY | PROVIDERS: PCP Physician Assistant Medical; Visit Provider Physician Assistant Medical | DX: M79.605 Pain in left leg (principal); Z86.718 Personal history of other venous thrombosis and embolism; Z83.2 Family history of diseases of the blood and blood-forming organs and certain disorders involving the immune mechanism; Z13.31 Encounter for screening for depression; Z13.39 Encounter for screening examination for other mental health and behavioral disorders; W19.XXXD Unspecified fall, subsequent encounter | CPT/HCPCS: 96127; 96372; J1885 ==

== ENCOUNTER 2025-05-19 15:10 | Outpatient (REF) | payer OTHER, SELFPAY ==
--- NOTE | ~2025-05-19 | US_ITS ---
EXAMINATION: US TRIPLEX LOWER EXTREMITY, LEFT CLINICAL INFORMATION: Left lower extremity pain COMPARISON: None available. TECHNIQUE: Color-flow triplex imaging with spectral analysis and compression Doppler were performed on the left lower extremity. FINDINGS: Respiratory variation, normal compression and augmented flow are noted throughout the left lower extremity. The visualized common femoral vein, superficial femoral vein, profunda femoral vein, popliteal vein and midcalf peroneal and posterior tibial venous segments show no evidence of deep venous thrombosis. US/US venous duplex LE LT IMPRESSION: No evidence of deep venous thrombosis involving the left lower extremity. Electronically signed by: Aries Stuart MD 05/19/2025 03:57 PM EST
== END 2025-05-19 15:11 | disposition home or self-care (01) ==
LOC: HO.US 15:10
PROVIDERS: PCP Physician Assistant Medical; Visit Provider Physician Assistant Medical
DX: M79.605 Pain in left leg (principal); Z76.89 Persons encountering health services in other specified circumstances
CPT/HCPCS: 93971

== ENCOUNTER → 2025-05-19 15:14 | Outpatient (BNV) | payer OTHER, SELFPAY | PROVIDERS: PCP Physician Assistant Medical; Visit Provider Radiology Diagnostic Radiology | DX: M79.605 Pain in left leg (principal) | CPT/HCPCS: 93971 ==

== ENCOUNTER 2025-05-30 09:11 | Outpatient (AMB) | payer OTHER, SELFPAY ==
--- NOTE | 2025-05-30 09:12 | A.OFFPC_ITS ---
Vital Signs 05/30/25 09:14 Height 5 ft 3 in Weight 92 lb 0.4 oz BMI 16.3 BP 125/58 L Blood Pressure Location Rt brachial Pulse 65 Pulse Source Pulse Oximeter Temp 97.2 F Pulse Oximetry (%) 97 Intake Visit Reasons: Injection Intake Note: shot seemed to work for a day to two days. Allergies bee pollen (BEE STINGS) Allergy (Severe, Verified 05/30/25 09:59) ANAPHYLAXIS meperidine (From DEMEROL) Allergy (Mild, Verified 05/30/25 09:59) VOMITING oxycodone (OXYCODONE) Allergy (Mild, Verified 05/30/25 09:59) VOMITING Medication List - Last Reconciled 05/30/25 by Jo-Ann Koch PA-C albuterol sulfate 2.5 mg inhalation DAILY atorvastatin 80 mg PO DAILY budesonide-formoterol 160-4.5 mcg/actuation (Symbicort) 2 puffs inhalation BID 30 days cholecalciferol (vitamin D3) 50 mcg PO DAILY cyclobenzaprine 10 mg PO TID duloxetine 60 mg PO DAILY fremanezumab-vfrm (Ajovy) ADMINISTER 3 CONSECUTIVE 225MG INJECTIONS EVERY 3 MONTHS levalbuterol tartrate 45 mcg/actuation 1 puff PO Q6H PRN lisinopril 5 mg PO DAILY meloxicam 15 mg PO DAILY multivitamin 1 tab PO DAILY oxycodone-acetaminophen 5-325 mg (Percocet) 1 tab PO Q8H PRN pantoprazole 40 mg PO DAILY prednisone 40 mg (2 x 20 mg) PO DAILY 5 days propranolol ER 160 mg PO DAILY Tobacco use date assessed: 04/13/25 Dental Screening Dental Screen Date: 10/05/24 HPI HPI Comments History of Present Illness Details History of Present Illness The patient is a 60 year old female presenting for an evaluation of worsening hip and knee pain. The pain is primarily in the left hip, though X-rays showed findings in both hips, and has become severe enough to cause difficulty with ambulation. The pain typically worsens around 2 PM. She has been altering her gait, walking on her toes, to alleviate the hip pain, which she believes is causing her associated knee pain. Recent imaging included an ultrasound, which was negative for a deep vein thrombosis, and X-rays which revealed mild joint space narrowing in both hips, consistent with early osteoarthritis, along with scoliosis of the lumbar spine. Previous treatments include a Toradol injection and prednisone, with the injection providing significant relief for almost two days. She has also been using oxycodone, taking one in the morning and one at bedtime, for pain management, as well as applying heat. The patient has no history of diabetes. Social History - Nutrition: The patient reported eating waffles in the morning. [facility] Medical History (Updated 05/30/25 @ 10:03 by Jo-Ann Koch PA-C) Osteoarthritis of left hip Left knee pain Encounter for assessment for deep vein thrombosis (DVT) Left leg pain Contusion of left chest wall Elevated vitamin B12 level Fall Right shoulder pain Underweight (BMI < 18.5) Hypertension General medical exam [place] (dyspnea on exertion) SOB (shortness of breath) Oral candidiasis Sciatica of left side Chronic low back pain Kidney stones Cervical radiculopathy BRCA positive IBS (irritable bowel syndrome) Anxiety Depression Establishing care with new doctor, encounter for Vitamin B12 deficiency Vitamin D deficiency Pure hypercholesterolemia, unspecified Restless leg syndrome Hx of migraines GERD (gastroesophageal reflux disease) History of 2019 novel coronavirus disease (COVID-19) Asthma Pulmonary nodule Surgical History History of esophagogastroduodenoscopy (EGD) (~11/29/21) Hx of colonoscopy (~11/29/21) Hx of tubal ligation History of femoral hernia repair (10/21/21) History of hysterectomy (2014) History of mastectomy (2014) Family History Sister Breast cancer Family/Other Lung cancer Breast cancer Family/Other Breast cancer Family/Other Breast cancer Paternal Aunt Breast cancer Ovarian cancer Mother Stroke Heart disease Asthma Emphysema lung COPD (chronic obstructive pulmonary disease) Diabetes Dementia Father Heart disease Social History Household Members: Spouse and Children Housing: House Are you a primary healthcare marketer to a significant other at home: Yes Do you presently have visiting nurse or other home services: No Alcohol intake: current Alcohol intake frequency: does not drink Patient Tobacco Use Status: Former Tobacco user service: No Current occupational status: employed Cognitive needs: No Hearing needs: No Vision needs: Yes (rx glasses) Questionnaire PHQ-9 Over the last 2 weeks, how often have you been bothered by any of the following problems? 1. Little interest or pleasure in doing things: not at all 2. Feeling down, depressed, or hopeless: not at all 3. Trouble falling or staying asleep, or sleeping too much: not at all 4. Feeling tired or having little energy: not at all 5. Poor appetite or overeating: not at all 6. Feeling bad about yourself - or that you are a failure or have let yourself or your family down: not at all 7. Trouble concentrating on things, such as reading the newspaper or watching television: not at all 8. Moving or speaking so slowly that other people could have noticed. Or the opposite - being so fidgety or restless that you have been moving around a lot more than usual: not at all 9. Thoughts that you would be better off or of hurting yourself in some way: not at all Total score: 0 Depression Screening Interpretation: Negative Depression Screening Done: Yes 51679 - PHQ-9 Billing: Yes Source: Developed by Drs. Yimi Vasquez, Karla Wilson, Florencio Zimmer and colleagues, with an educational faisal from [employer]. Thrive Questionnaire Date Thrive assessed: 10/05/24 I am a: Patient What is your living situation today?: I have a steady place to live Within the past 12 months, did the food you bought not last and you didn't have the money to get more?: Never true Within the past 12 months, did you worry whether your food would run out before you got money to buy more?: Never true Do you have trouble paying for medicines?: No Do you have trouble getting transportation to medical appointments?: No Do you have trouble paying your heating and electricity bill?: No Do you have trouble taking care of your child, family member or friend?: No Do you have trouble with day-to-day activities such as bathing, preparing meals, shopping, managing finances, etc.?: No Are you currently unemployed and looking for a job?: No Are you interested in more education?: No Please select the resources that you would like help with: None THRIVE Score: 0 AUDIT C Alcohol Use Questionnaire (AUDIT-C) 1. How often do you have a drink containing alcohol?: Never 3. How often do you have six or more drinks on one occasion?: Never Total Score: 0 Score Reviewed/Action Taken: No NELIDA-7 AMB Questionnaire NELIDA-7 Date NELIDA - 7 assessed: 10/05/24 Feeling nervous, anxious, or on edge: 1 = Several days Not being able to stop or control worryin = Nearly every day Worrying too much about different things: 2 = More than half the days Trouble relaxin = Nearly every day Being so restless that it is hard to sit still: 3 = Nearly every day Becoming easily annoyed or irritable: 0 = Not at all Feeling afraid as if something awful might happen: 0 = Not at all Total NELIDA-7 score (0-4 normal; 5-9 mild; 10-14 moderate; 15-21 severe): 12 Source: Developed by Drs. Yimi Vasquez, Karla Wilson, Florencio Zimmer and colleagues, with an educational faisal from [employer]. NELIDA-7 Assessment Billing NELIDA-7 Assessment Tool: NELDIA-7 Assessment 98062 Review of Systems Narrative Review of Systems - Musculoskeletal: Reports severe pain in the left hip, which is worse in the afternoon and with activity such as climbing stairs. - Reports associated knee pain, thought to be from altered gait. - Reports some relief with a previous Toradol injection. - Constitutional: Denies diabetes. Const All systems reviewed & are unremarkable except as noted in HPI and below Physical exam (Primary Care) Vital Signs: Last Vital Signs Temp 97.2 F 05/30/25 09:14 Pulse 65 05/30/25 09:14 BP 125/58 L 05/30/25 09:14 Pulse Ox 97 05/30/25 09:14 Care Plan Goal for BP management: <140/90 at Goal BMI result Body Mass Index 16.3 normal bmi Tobacco/Smoking Status: Tobacco use Status Tobacco use date assessed 04/13/25 05/30/25 09:14 Patient Tobacco Use Status Former Tobacco user 05/30/25 09:14 PHQ-9: PHQ-9 Score PHQ-9: Total score 0 05/30/25 09:14 Depression Screening Interpretation: Negative Thrive Assessment: Date of Thrive Assessment Date Thrive assessed 10/05/24 05/30/25 09:14 Const Other: Appearance: Alert. Oriented X3. No acute distress. Head: Normal external exam. Normocephalic. Atraumatic. Eyes: Pupils are equal, round, and reactive to light. Extraocular movements intact. Conjunctiva and sclera normal. Eyelids normal. Throat: Pharynx normal. Uvula midline. Moist mucous membranes. Neck: Normal inspection. Neck supple. Full range of motion. Cardiovascular: Normal heart rate and rhythm. Respiratory: No respiratory distress. Painless inspiration. Back: Scoliosis of the lower spine noted. Full range of motion noted. Skin: Skin warm and dry. Normal skin color. Extremities: Mild joint space narrowing in both hips noted. Patient with tenderness to palpation to left hip and left knee joint. No obvious deformities. Good range of motion. No joint effusions noted. No signs of infection. No lower extremity edema or calf tenderness noted. Otherwise all other extremities exhibit normal range of motion nontender. Neuro: Oriented X 3. No motor deficit. No sensory deficit. Reflexes normal. Office Procedures Flu Questionnaire Does the patient have a severe egg allergy?: No Does the patient have severe life threatening allergies?: No Does the patient have a fever or illness today?: No Has the patient ever had Guillain-[place]er[place] Syndrome?: No Has the patient ever had any past reaction to a flu shot?: No Office Meds ketorolac 60 mg/2 mL intramuscular solution Performing Provider: Jo-Ann Koch PA-C [place] [facility] [place] [facility] Administered by: Jo-Ann Koch PA-C on 05/30/25 10:03 Dose Route Admin Location Dispensed Lot Number Expiration Date [facility] Medical Transcription Radiology 60 mg IM Left deltoid 2 mL [id number] 06/14/25 08007-798-16 [employer] Total Dispensed Waste 2 mL 0 % dexamethasone sodium phosphate 10 mg/mL injection solution Performing Provider: Jo-Ann Koch PA-C [place] [facility] [place] [facility] Administered by: Jo-Ann Koch PA-C on 05/30/25 10:03 Dose Route Admin Location Dispensed Lot Number Expiration Date [facility] Medical Transcription Radiology 4 mg IM Left deltoid 1 mL [id number] 06/14/25 66199-134-46 Immunizations Fluarix [id number] (PF) 45 mcg (15 mcg x 3)/0.5 mL IM syringe Performing Provider: Jo-Ann Koch PA-C [place] [facility] [place] [facility] [place] Documented (not given) by: Josselin Sigala on 05/30/25 09:27 Reason Not Given: Received Previously Results Reviewed Results Reviewed: - Imaging: - Recent hip ultrasound was negative for DVT. - Recent X-rays showed mild joint space narrowing in both hips and scoliosis of the lower spine. Coding Level of Care Code Est Pt Level 4 (97629) Add On Problem Visit Only Diagnoses Osteoarthritis of left hip M16.12 Additional Codes NELIDA-7 Assessment Billing - NELIDA-7 Assessment Tool: NELIDA-7 Assessment 09468 ([id number]) PHQ-9 - 56244 - PHQ-9 Billing: Yes ([id number]) Assessment & Plan Assessment & Plan (1) Osteoarthritis of left hip: Code(s): M16.12 - Unilateral primary osteoarthritis, left hip Category: Medical Plan: The patient's hip pain is attributed to osteoarthritis, as evidenced by mild joint space narrowing on recent X-rays. An in-office Toradol injection was administered for immediate pain relief. A prescription for meloxicam, an anti-inflammatory to be taken daily with food, was provided. A higher dose of prednisone (40 mg for 5 days) was prescribed to be started the following day. A refill of oxycodone was provided for breakthrough pain. A referral will be made to physical therapy for the back, hip, and leg. A referral will also be made to an graphic specialist for consideration of further interventions, such as a steroid injection into the joint. A follow-up visit is scheduled for the first week of June. Plan Plan Patient was informed and verbally consented to the use of an ambient scribe for clinic note documentation during this visit. 1. Osteoarthritis Of Hip The patient's hip pain is attributed to osteoarthritis, as evidenced by mild joint space narrowing on recent X-rays. An in-office Toradol injection was administered for immediate pain relief. A prescription for meloxicam, an anti- inflammatory to be taken daily with food, was provided. A higher dose of prednisone (40 mg for 5 days) was prescribed to be started the following day. A refill of oxycodone was provided for breakthrough pain. A referral will be made to physical therapy for the back, hip, and leg. A referral will also be made to an graphic specialist for consideration of further interventions, such as a steroid injection into the joint. A follow-up visit is scheduled for the first [place]. Discussion Notes I reviewed the recent X-ray findings with the patient, which show mild joint space narrowing in both hips, consistent with early osteoarthritis, as well as scoliosis of the lower spine. I administered a Toradol injection in the office for pain. We discussed further treatment options, including oral medications and referrals. I prescribed meloxicam to be taken daily with food and a 5-day course of prednisone 40 mg. I also provided a refill for her oxycodone for breakthrough pain. I recommended physical therapy for her back, hip, and leg, and we agreed on a referral to an graphic specialist, with the possibility of a longer- lasting steroid injection into the joint being discussed as an option they might offer. A follow-up appointment is scheduled for the first week of June. Orders: Orders Influenza [id number] Immunization Today Z23 - Encounter for immunization AMB Ketorolac Injection Today G89.29 - Other chronic pain, M25.562 - Pain in left knee, M54.32 - Sciatica, left side, M54.50 - Low back pain, unspecified, M79.605 - Pain in left leg PT Evaluation and Treatment Today G89.29 - Other chronic pain, M25.562 - Pain in left knee, M54.32 - Sciatica, left side, M54.50 - Low back pain, unspecified, M79.605 - Pain in left leg Injection-Dexamethasone Today G89.29 - Other chronic pain, M25.562 - Pain in left knee, M54.32 - Sciatica, left side, M54.50 - Low back pain, unspecified, M79.605 - Pain in left leg Referrals Orthopedics Referral G89.29 - Other chronic pain, M25.552 - Pain in left hip, M25.562 - Pain in left knee, M54.32 - Sciatica, left side, M54.50 - Low back pain, unspecified, M79.605 - Pain in left leg Medications: New meloxicam 15 mg PO DAILY 90 tabs 3RF Changed From prednisone Take 2 tabs daily x 5 days, then 1 tablet daily x 5 days 20 mg PO DAILY 15 tabs 0RF 10 days To prednisone Take 2 tabs daily x 5 days, then 1 tablet daily x 5 days 40 mg (2 x 20 mg) PO DAILY 10 tabs 0RF 5 days Refilled oxycodone-acetaminophen 5-325 mg (Percocet) Partial Fill upon patient request. 1 tab PO Q8H PRN 20 tabs 0RF pain Patient Instructions: Patient Instructions - You were given a Toradol injection today for pain. - Begin taking meloxicam daily, but make sure to take it with food. - Starting tomorrow, you can also take the prescribed course of prednisone. - You have a prescription for oxycodone for severe pain if needed. - We will refer you to physical therapy for your back, hip, and leg. - We are also sending a referral to a bone and joint specialist (orthopedics). - Please follow up in the office during the first week of June.
[2025-05-30 09:14] VITALS: BP 125/58; PULSE 65; TEMP 36.2; O2SAT 97; BMI 16.3
== END 2025-05-30 10:12 | disposition home or self-care (01) ==
LOC: HO.HMCSH 09:11
PROVIDERS: PCP Physician Assistant Medical; Visit Provider Physician Assistant Medical
DX: M54.50 Low back pain, unspecified (principal); G89.29 Other chronic pain; M54.32 Sciatica, left side; M79.605 Pain in left leg; M25.562 Pain in left knee; Z23 Encounter for immunization; M16.12 Unilateral primary osteoarthritis, left hip

== ENCOUNTER → 2025-05-30 09:11 | Outpatient (BNVA) | payer OTHER, SELFPAY | PROVIDERS: PCP Physician Assistant Medical; Visit Provider Physician Assistant Medical | DX: G89.29 Other chronic pain (principal); M16.12 Unilateral primary osteoarthritis, left hip; M25.562 Pain in left knee; M54.50 Low back pain, unspecified; M79.605 Pain in left leg; Z13.31 Encounter for screening for depression; Z13.39 Encounter for screening examination for other mental health and behavioral disorders; Z28.89 Immunization not carried out for other reason | CPT/HCPCS: 90471; 96127; 96372; J1885 ==